=== PATIENT | female | born 1940 | race Caucasian/White ===

== ENCOUNTER → 2021-09-10 14:33 | Outpatient (CLI) | payer MEDICARE, SELFPAY ==
--- NOTE | ~2021-09-10 | XR_ITS ---
EXAMINATION: XR chest 2V DATE: 09/10/2021 15:01 INDICATION: Bronchitis. TECHNIQUE: Frontal and lateral views of the chest were obtained. COMPARISON: None. FINDINGS: There is mild atelectasis in the lower lung zones. No pleural effusion or pneumothorax. The heart size is normal. IMPRESSION: 1. Mild atelectasis in the lower lung zones. Reviewed, dictated and finalized at location A.
== END ==
PROVIDERS: PCP Family Medicine; Visit Provider Family Medicine
DX: J40 Bronchitis, not specified as acute or chronic (principal); J98.11 Atelectasis
CPT/HCPCS: 71046

== ENCOUNTER 2023-02-11 23:49 | Emergency (ER) | payer MEDICARE, SELFPAY ==
[2023-02-12 01:51] VITALS: BP 166/83; PULSE 77; RESP 15; TEMP 37.3; O2SAT 98
[2023-02-12] MEDS: SODIUM CHLORIDE 0.9% IV 1,000 ML 999 ML IV CONT (02:41)
[2023-02-12 03:00] VITALS: BP 145/78; PULSE 70; RESP 14; O2SAT 98
[2023-02-12 03:27] LABS: Anion Gap 9 mmol/L (8-16); Blood Urea Nitrogen 24 mg/dL (7-17); Calcium 8.9 mg/dL (8.4-10.2); Carbon Dioxide 24 mmol/L (22-30); Chloride 102 mmol/L (98-107); Estimated CRCL calculation 47 ml/min; Estimated Glomerular Filt Rate 60; Glucose 130 mg/dL (65-110); Potassium 4.2 mmol/L (3.4-5.0); Sodium 135 mmol/L (137-145)
[2023-02-12 03:30] VITALS: BP 133/66; PULSE 72; RESP 16; O2SAT 99
--- NOTE | 2023-02-12 03:32 | ED.NAVMDI ---
HPI - Nausea/Vomiting/Diarrhea General Chief complaint: Nausea/Vomiting/Diarrhea Stated complaint: nausea, diarrhea, low grade temp Time Seen by Provider: 02/12/23 01:39 History of Present Illness HPI Narrative: This is an 82-year-old female with recent history of urinary tract infection, who presents emergency department complaining of frequent stools. The patient states about 8 days ago, she was diagnosed with urinary tract infection. She was started on Bactrim. She took the medication for 3 days, though developed increased frequency stools. This is associated with mild abdominal cramping. She denies bleeding. She states she was seen by her primary care doctor on who recommended oral hydration and Imodium. She states a repeat urinalysis at that time was negative. Today she felt feverish, though did not have a measured fever at home. Related Data Allergies Allergy/AdvReac Type Severity Reaction Status Date / Time erythromycin base Allergy Hives Verified 02/12/23 02:03 levofloxacin [From Levaquin] Allergy Hives Verified 02/12/23 02:03 Mhytqnb-GJT-GmY Reductase Allergy Unknown Verified 02/12/23 02:03 Inhibitor Penicillins AdvReac Severe Anaphylaxis Verified 02/12/23 02:03 Review of Systems Review of Systems: CONSTITUTIONAL: Subjective fevers denies fever, chills, or sweats. CARDIOVASCULAR: Denies chest pain, palpitations, or edema. RESPIRATORY: Denies cough or dyspnea. GASTROINTESTINAL: Chronic abdominal pain, loose stool denies nausea, vomiting GENITOURINARY: Denies dysuria or hematuria. SKIN: Denies rash or itching. MUSCULOSKELETAL: Denies back pain, joint pain, or myalgia. NEUROLOGIC: Denies headache, numbness, dizziness, or weakness. PSYCHIATRIC: Denies anxiety or depression. PMFSH Past Medical History Medical History UTI (urinary tract infection) Surgical History Surgical History No significant past surgical history Social History Social History (Updated 02/12/23 @ 03:35 by Justin Arevalo MD) Smoking status: Never smoker Alcohol intake: current Drinks per week: 1 Substance use: never Exam Narrative: GENERAL: Well-developed, well-nourished, and in no acute distress. HEAD: Normocephalic, atraumatic. EYES: PERRLA and EOMI. CHEST: Clear to auscultation. No respiratory distress. No wheezes rales or rhonchi HEART: Regular rate and rhythm. No murmur heard. Normal peripheral pulses. ABDOMEN: Soft, nontender, nondistended, normal active bowel sounds. EXTREMITIES: Normal range of motion. No edema. SKIN: Warm, dry, no rash. NEURO: Alert and oriented x3. Moving all 4 limbs purposefully. PSYCH: Normal mood and affect. Course Course Emergency Course: 03:30 - Chemistries not concerning for kidney injury. Sodium slightly decreased at 135. I suspect the patient's symptoms are a side effect of antibiotic use. Will discharge with recommendation for oral hydration, fiber and primary care follow-up. Discussed return and emergency precautions including signs/symptoms of acute abdomen, ACS and respiratory distress. The patient voiced understanding and is comfortable with the plan. All questions answered to her satisfaction. Vital Signs Vital signs: Vital Signs Temperature 99.2 F 02/12/23 01:51 Pulse Rate 77 02/12/23 01:51 Respiratory Rate 15 02/12/23 01:51 Blood Pressure 166/83 H 02/12/23 01:51 Pulse Oximetry 98 02/12/23 01:51 Oxygen Delivery Room Air 02/12/23 01:51 Temperature 99.2 F 02/12/23 01:51 Pulse Rate 72 02/12/23 03:30 Respiratory Rate 16 02/12/23 03:30 Blood Pressure 133/66 02/12/23 03:30 Pulse Oximetry 99 02/12/23 03:30 Oxygen Delivery Room Air 02/12/23 01:51 MDM - Nausea/Vomiting/Diarrhea MDM Narrative Medical decision making narrative: Plan: Labs, IV fluids, reassess Differential Diagnosis Differen
== END 2023-02-12 04:03 | disposition home or self-care (01) ==
PROVIDERS: Emergency Provider Preventive Medicine Aerospace Medicine; PCP Family Medicine
DX: K52.1 Toxic gastroenteritis and colitis (principal); T36.8X5A Adverse effect of other systemic antibiotics, initial encounter
CPT/HCPCS: 36415; 80048; 96360; 99283; J7030

== ENCOUNTER 2024-06-19 23:33 | Emergency (ER) | payer MEDICARE, SELFPAY ==
--- NOTE | ~2024-06-19 | CT_ITS ---
CT ANGIOGRAM NECK AND HEAD History: Dizziness, diplopia. Technique: Axial noncontrast imaging of the brain was performed. Serial spiral axial images through t he head and neck were then obtained during arterial phase IV injection of 100 cc of Omnipaque 350. 3- D postprocessing and MIP images were then reconstructed on the remote workstation. Dose reduction du hnique was used on this scan by utilizing automated exposure control and iterative reconstruction du hnique. The dose-length product (DLP) was 1779.63 mGy-cm. CTA neck findings: Bilateral vertebral arteries are patent. Bilateral common carotid, internal carot id, and external carotid arteries are patent. No large vessel occlusion or stenosis. No aneurysm. The proximal right internal carotid artery demonstrates 0% stenosis relative to the normal distal artery lumen diameter. The proximal left internal carotid artery demonstrates 0% stenosis relative to the n ormal distal artery lumen diameter. CTA head findings: Distal vertebral arteries, basilar artery, and posterior cerebral arteries are pat ent. Distal internal carotid arteries, middle cerebral arteries, and anterior cerebral arteries are p atent. There are atherosclerotic calcifications extensive involving the cavernous portions of the dis yaniv internal carotid arteries, with areas of moderate to high-grade stenosis in the left cavernous po rtion. There are areas of mild stenosis in the right cavernous portion. No large vessel occlusion. Pr obable multifocal mild stenoses in the proximal middle cerebral arteries bilaterally. No aneurysm. Axial noncontrast imaging of the brain demonstrates no evidence for acute infarct, intraparenchymal h emorrhage, or mass lesion. Jose-white protrusion preserved. No mass effect or midline shift. Ventricl es and subarachnoid spaces are mildly dilated. Paranasal sinuses and mastoid air cells are clear. Grant varium intact. Impression: No large vessel occlusion. Areas of bilateral stenosis in the cavernous portions of the distal internal carotid arteries, left w orse than right, related to extensive atherosclerotic calcification. No other areas of high-grade stenosis. Reviewed, dictated and finalized at location M. ICAL THERAPY COORDINATOR Impression: No large vessel occlusion. Areas of bilateral stenosis in the cavernous portions of the distal internal ca rotid arteries, left worse than right, related to extensive atherosclerotic grant cification. No other areas of high-grade stenosis.
--- NOTE | ~2024-06-19 | XR_ITS ---
CHEST RADIOGRAPH, PA AND LATERAL CLINICAL HISTORY: worsening sob x 2 weeks . COMPARISON: 09/10/2021 TECHNIQUE: PA and lateral views of the chest. FINDINGS The cardiomediastinal silhouette is unremarkable. Hyperinflation is present. Elevation of the right hemidiaphragm with adjacent compressive atelectasis. The lungs are clear. Visualized osseous structures and soft tissues are unremarkable. IMPRESSION: Hyperinflation, without focal infiltrate or effusion. Reviewed, dictated and finalized at location A. BODY REPAIRMAN
--- NOTE | ~2024-06-19 | CT_ITS ---
Clinical Indication: Shortness of breath CT Scan of the Chest with Contrast: Technique: Contiguous sections were acquired throughout the chest after intravenous administration of 100 cc of Omnipaque 350. Dose reduction technique was used on this scan by utilizing automated expos ure control and iterative reconstruction technique. The dose-length product (DLP) was 390.34 mGy-cm. Findings: There is no evidence of any significant mediastinal, hilar or axillary lymphadenopathy. There is no f illing defect in the pulmonary arterial tree to suggest pulmonary embolus. There is no evidence of ao rtic dissection or aneurysm. There is no evidence of pleural or pericardial effusion. There are mild dependent atelectatic/hypoventilatory changes. There are areas of cystic or bullous ch jovani at the left lung base. Images through the upper abdomen reveal no abnormalities. 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 Cystic change or bullous change at the left lung base. Minimal dependent atelectatic change. Reviewed, dictated and finalized at [facility]. ER GRADER Impression: No evidence of pulmonary embolus, aortic dissection, or aortic aneurysm. Cystic change or bullous change at the left lung base. Minimal dependent atelec tatic change.
[2024-06-19 23:35] VITALS: BP 132/68; PULSE 84; RESP 16; TEMP 36.4; O2SAT 95
--- OUTSIDE RECORDS SUMMARY | 2024-06-19 23:36 | XMS_ITS | Clinical Summary ---
Author Organization [facility] Address [address] [place] [address] Care Team Providers Care Club Director Name Role Phone Tuan Morrison MD Primary Care Provider +1- [phone] Source Comments [facility],non-owned Affiliates and Associated Physician Practices is amultiple site organization consisting of ambulatory clinics and hospital sitesin [place], [place], [place] and [place]. This disclosure is being madepursuant to the Care Everywhere program and may not contain all information available regarding this patient. Last updated 18.[facility] Allergies Active Allergy Reactions Criticality Noted Date Comments Azithromycin Unknown Low 03/09/2022 [facility] Non-Aspirin Allergy Rash Medium 02/11/2010 Erythromycin Urticaria,Rash High 05/16/1967 Levofloxacin Dizziness,Unknown,Ot her,Swell ing Medium 01/05/2012 Omeprazole Palpitations,Unknown High 01/23/2016 Penicillins Anaphylaxis High 02/11/2010 Rosuvastatin Unknown,Other High 01/04/2017 Medications * Be aware that medications may not be up to date on this document. Alwaysverify current medications with the patient. Medication Sig Dispensed Refills Start Date End Date Status Synthroid 75 MCG tablet Take 1 (one) tablet by mouth once daily Active vitamin D3 (Cholecalciferol) 125 MCG (5000 UT) capsule Take 1 (one) capsule by mouth once daily Active Bacillus Coagulans-Inulin (Probiotic) 1-250 BILLION-MG CAPS 05/16/2014 Active Encounters Date Type Department Care Team Description 05/29/2024 2:00 PM LINE MAINTAINER SECTION Office Visit [facility] [address] [place] [address], [address] [address] Edinson Denise MD Primary osteoarthritis of left knee (Primary Dx) 04/17/2024 10:25 AM LINE MAINTAINER SECTION Ancillary Procedure [facility] - Radiology [address] [place] [address] Edinson Denise MD Left knee pain, unspecified chronicity 04/17/2024 10:10 AM LINE MAINTAINER SECTION Office Visit [facility] [address] [facility] [place] [address] Edinson Denise MD Left knee pain, unspecified chronicity (Primary Dx); Bilateral primary osteoarthritis of knee from Last 3 Months Social History Tobacco Use Types Packs/Day Years Used Date Smoking Tobacco: Never Smokeless Tobacco: Never Tobacco Cessation:Counseling Given: Not Answered PHQ-2 Answer Date Recorded Patient Health Questionnaire-2 Score 0 05/26/2024 Sex and Gender Information Value Date Recorded Sex Assigned at Female 05/01/2024 6:42 PM LINE MAINTAINER SECTION Gender Identity Female 05/01/2024 6:42 PM LINE MAINTAINER SECTION Sexual Orientation Bisexual 05/01/2024 6: 42 PM LINE MAINTAINER SECTION Last Filed Vital Signs Vital Sign Reading Time Taken Comments Blood Pressure - - Pulse - - Temperature - - Respiratory Rate - - Oxygen Saturation - - Inhaled Oxygen Concentration - - Weight 85.3 kg (188 lb) 04/17/2024 10:24 AM LINE MAINTAINER SECTION Height 170.2 cm (5' 7 ) 04/17/2024 10:24 AM LINE MAINTAINER SECTION Body Mass Index 29.44 04/17/2024 10:24 AM LINE MAINTAINER SECTION Plan of Treatment Upcoming Encounters Date Type Department Care Team (Latest Contact Info) Description 07/02/2024 10:15 AM LINE MAINTAINER SECTION Appointment [facility] [address] [place] [address] 08/02/2024 10:10 AM CDT Hospital Encounter [facility] - Perioperative Surgery [address] [place], [place] [id number] [place] [address] [place] [address] Surgery General 08/02/2024 10:10 AM CDT - 08/02/2024 12:28 PM CDT Surgery [facility] - Perioperative Surgery [address] [place] [address] [place] [address] [facility] [address] [place], [place] [id number] LEFT TOTAL KNEE ARTHROPLASTY Scheduled Procedures Name Priority Associated Diagnoses Date/Ti me ARTHROPLASTY TOTAL KNEE 07/15 10:10 AM CDT Health Maintenance Due Date Last Done Comments BONE DENSITY TESTING 1940 MEDICARE AWV ? 12 MONTHS 1940 DTAP/TDAP/TD VACCINES (1 - Tdap) 10/29/1958 PNEUMOCOCCAL VACCINE 50+ (1 of 1 - PCV) 10/29/1989 ZOSTER VACCINE (1 of 2) 10/29/1989 Respiratory Syncytial Virus (RSV) Vaccine Pt: or over 60 yrs (1 - 1-dose 75+ series) 10/29/2014 COVID-19 VACCINE ( - 2023-2 5 season) 2024 INFLUENZA VACCINE (#1) 2024 04/29/2022 DEPRESSION SCREENING Completed 05/29/2024 HEPATITIS B VACCINE Aged Out No longe r eligible based on patient's age to complete this topic HIB VACCINE Aged Out No longer eligi ble based on patient's age to complete this topic HPV VACCINE Aged Out No longer eligi ble based on patient's age to complete this topic MENINGOCOCCAL (Group B) VACCINE Aged Out No longer eligible based on patient's age to complete this topic MENINGOCOCCAL VACCINE Aged Out No xena kelsey eligible based on patient's age to complete this topic Procedures Procedure Name Priority Date/Time Associated Diagnosis Comments XR KNEE LEFT 3VW Routine 04/17/2024 10:2 2 AM LINE MAINTAINER SECTION Left knee pain, unspecified chronicity from Last 3 Months Results * XR Knee Left 3Vw (04/17/2024 10:22 AM LINE MAINTAINER SECTION) Narrative [facility] [place] [address] - 04/17/2024 10:22 AM LINE MAINTAINER SECTION Please see progress note in Epic for results. Edinson Denise MD DIAGNOSTIC IMAGING O RDERABLES [facility] [place] [address] from Last 3 Months Care Teams Club Director Relationship Specialty Start Date End Date Tuan Morrison MD [address] [facility], [address] PCP - General Family Medicine 04/17/24
--- OUTSIDE RECORDS SUMMARY | 2024-06-19 23:36 | XMS_ITS | Referral Summary ---
Author Organization [facility] Address [address] [place] [address] Care Team Providers Care Maintenance Operator Name Role Phone Tuan Morrison MD Primary Care Provider +1- [phone] Source Comments [facility] Affiliates and Associated Physician Practices is amultiple site organization consisting of ambulatory clinics and hospital sitesin [place], [place], [place] and [place]. This disclosure is being madepursuant to the Care Everywhere program and may not contain all information available regarding this patient. Last updated 18.[facility] Encounters Date Type Department Care Team Description 05/29/2024 2:00 PM PICK UP AND DELIVERY DRIVER Office Visit [facility] [address] [place] [phone] Edinson Denise MD Primary osteoarthritis of left knee (Primary Dx) 04/17/2024 10:25 AM PICK UP AND DELIVERY DRIVER Ancillary Procedure [facility] - Radiology [address] [place] [phone] Edinson Denise MD Left knee pain, unspecified chronicity 04/17/2024 10:10 AM PICK UP AND DELIVERY DRIVER Office Visit [facility] [address] [place] [phone] Edinson Denise MD Left knee pain, unspecified chronicity (Primary Dx); Bilateral primary osteoarthritis of knee from Last 3 Months Allergies Active Allergy Reactions Criticality Noted Date [...] Coagulans-Inulin (Probiotic) 1-250 BILLION-MG CAPS 05/16/2014 Active Social History Tobacco Use Types Packs/Day Years Used Date Smoking Tobacco: Never Smokeless Tobacco: Never Tobacco Cessation:Counseling Given: Not Answered PHQ-2 Answer Date Recorded Patient Health Questionnaire-2 Score 0 05/26/2024 Sex and Gender Information Value Date Recorded Sex Assigned at Female 05/01/2024 6:42 PM PICK UP AND DELIVERY DRIVER Gender Identity Female 05/01/2024 6:42 PM PICK UP AND DELIVERY DRIVER Sexual Orientation Bisexual 05/01/2024 6: 42 PM PICK UP AND DELIVERY DRIVER Last Filed Vital Signs Vital Sign Reading Time Taken Comments Blood Pressure - - Pulse - - Temperature - - Respiratory Rate - - Oxygen Saturation - - Inhaled Oxygen Concentration - - Weight 85.3 kg (188 lb) 04/17/2024 10:24 AM PICK UP AND DELIVERY DRIVER Height 170.2 cm (5' 7 ) 04/17/2024 10:24 AM PICK UP AND DELIVERY DRIVER Body Mass Index 29.44 04/17/2024 10:24 AM PICK UP AND DELIVERY DRIVER Plan of Treatment Upcoming Encounters Date Type Department Care Team (Latest Contact Info) Description 07/02/2024 10:15 AM PICK UP AND DELIVERY DRIVER Appointment [facility] [address] [place], [place] [id number] 08/02/2024 10:10 AM CDT Hospital Encounter [facility] - Perioperative Surgery [address] [place] [address] [place] [address] [place], [place] [id number] Surgery General 08/02/2024 10:10 AM CDT - 08/02/2024 12:28 PM CDT Surgery [facility] - Perioperative Surgery [address] [place] [address] [place] [address] [facility] [address] [place] [address] LEFT TOTAL KNEE ARTHROPLASTY Scheduled Procedures Name Priority Associated Diagnoses Date/Ti me ARTHROPLASTY TOTAL KNEE 07/15 10:10 AM CDT Procedures Procedure Name Priority Date/Time Associated Diagnosis Comments XR KNEE LEFT 3VW Routine 04/17/2024 10:2 2 AM PICK UP AND DELIVERY DRIVER Left knee pain, unspecified chronicity from Last 3 Months Results * XR Knee Left 3Vw (04/17/2024 10:22 AM PICK UP AND DELIVERY DRIVER) Narrative [facility] [address] - 04/17/2024 10:22 AM PICK UP AND DELIVERY DRIVER Please see progress note in Epic for results. Edinson Denise MD DIAGNOSTIC IMAGING O RDERABLES [facility] [address] from Last 3 Months Care Teams Maintenance Operator Relationship Specialty Start Date End Date Tuan Morrison MD [address] [facility], [address] PCP - General Family Medicine 04/17/24
--- OUTSIDE RECORDS SUMMARY | 2024-06-19 23:36 | XMS_ITS | Referral Summary ---
Author [place] [facility] [place] [address] [facility] [address] Address [address] [place] [address] Care Team Providers Care Leather Production Machine Operator Name Role Phone Tuan Morrison MD Primary Care Provider +1- [phone] Encounters Date Type Department Care Team Description 03/22/2024 11:45 AM ELECTRICIAN JOURNEYMAN WIREMAN Office Visit [facility] Oncology [facility] Floor [address] [place] [address] Ismael Tejeda MD Malignant neoplasm of left breast in female, estrogen receptor positive, unspecified site of breast (HCC) from Last 3 Months Allergies Active Allergy Reactions Criticality Noted Date Comments Azithromycin Other (See comments) Low 03/09/2022 Erythromycin Rash,Hives High 05/16/1967 Fluticasone Propionate Cough Medium 04/15/2019 Levofloxacin Muscle pain,Other (S ee comments) Medium 01/05/2012 Omeprazole Palpitations High 01/23/2016 Penicillins Anaphylaxis,Other (S ee comments) High 03/09/2022 Rosuvastatin Joint pain High 01/04/2017 Sinutab Rash Medium 02/11/2010 Medications famotidine (PEPCID) 20 mg tablet 1 tablet (20 mg total) 2 (two) times a day as needed for indigestion 3 Active Synthroid 75 mcg tablet Take 1 tablet (75 mcg total) by mouth manager ui before breakfast Active vitamin D3-vitamin K2 25 mcg (1,000 unit)-90 mcg tablet,disinte grating Take by mouth Active magnesium citrate 100 mg tablet Take 100 mg by mouth daily after lunch Active vit D3-vit K-wqmbaidpu-wa ps [phone] zqei-srx-tl-mg tablet Take by mouth Active cholecalcifero l (VITAMIN D-3) 5,000 unit capsuleIndicat ions:Vitamin D Deficiency Take 1 capsule (5,000 Units total) by mouth daily after lunch Active omega-3 fatty acids-fish oil 300-1,000 mg capsule Active turmeric root extract 500 mg capsule 9 Active L. acidophilus-di g enz cmb 5 5-250 mg capsule Take 2 capsules by mouth nightly Active UNABLE TO FIND Take by mouth as needed Med Name: Frankinscense Active docusate sodium (COLACE) 100 mg capsuleIndicat ions:constipat ion Take 1 capsule (100 mg total) by mouth 2 (two) times a day with a glass of water 60 capsule 4 Active Additional Information Patient not taking.Reported on 09/08/2023 oxyCODONE-acet aminophen (PERCOCET) 5-325 mg per tabletIndicati ons:Pain Take 1-2 tablets by mouth every 4 (four) hours as needed for pain For severe pain, take in place of Tylenol. 20 tablet Active Additional Information Patient not taking.Reported on 09/08/2023 Active Problems Problem Noted Date Diagnosed Date Malignant neoplasm of right female breast 2023 Breast infection 07/25/2023 Assessment & Plan (07/25/2023 11:25 AM CDT): - Left breast with persistently draining wound, likely sinus tract. No erythema, warmth, swelling, fevers, chills, or other concerning symptoms. She will have mastectomy at the end of this month for definitive management of breast cancer. No plans for reconstruction. - Discussed with patient today that given she is clinically doing well there is no indication to start antibiotics at this time. Recommend she proceed with mastectomy as this will be the best way to cure infection. Will discuss with surgeon that if there is no concern for infection during surgery she can received normal aron-op antibiotics and will not require additional antibiotics after surgery. If there is concern for infection intraoperatively (which I feel is more likely) I would recommend she be given anti-pseudomonal coverage aron-op with a dose of cefepime and cultures should be taken. She should then be given levofloxacin 750 mg PO daily x 5 days and I will follow up on cultures and with patient to see how she is doing clinically post-op. We can also consider giving her oral vancomycin for C diff prophylaxis. Malignant neoplasm of left b reast in female, estrogen receptor positive 06/09/2023 Cancer Staging:Pathologic stage from 02/28/2023:Stage IA(pT2, pN0(sn), cM0, G2, ER+, WV+, HER2-) - Unsigned Primary osteoarthritis of left knee 10/27/2022 Immunizations Name Administration Dates Next Due Influenza, Quadrivalent, Hig h Dose, Preservative Free, Intrr 04/29/2022 Influenza, Unspecified 04/29/2022 Pneumococcal Conjugate PCV 13 01/19/2016 Social History Tobacco Use Types Packs/Day Years Used Date Smoking Tobacco: Never Passive Smoke Exposure: Past Smokeless Tobacco: Never Tobacco Cessation:Counseling Given: Not Answered AUDIT-C Answer Date Recorded Q1: How often [...] on file Legal Sex Female 1:53 AM ELECTRICIAN JOURNEYMAN WIREMAN Gender Identity Not on file Sexual Orientation Not on file Last Filed Vital Signs Vital Sign Reading Time Taken Comments Blood Pressure 145/80 03/22/2024 11:47 AM ELECTRICIAN JOURNEYMAN WIREMAN Pulse 65 03/22/2024 11:47 AM ELECTRICIAN JOURNEYMAN WIREMAN Temperature 36.1 ??C (97 ??F) 03/22/2024 11:47 AM ELECTRICIAN JOURNEYMAN WIREMAN Respiratory Rate 18 12/15/2023 11:46 AM CDT Oxygen Saturation 96% 03/22/2024 11:47 AM ELECTRICIAN JOURNEYMAN WIREMAN Inhaled Oxygen Concentration - - Weight 85.3 kg (188 lb) 03/22/2024 11:47 AM ELECTRICIAN JOURNEYMAN WIREMAN Height 165.1 cm (5' 5 ) 03/22/2024 11:47 AM ELECTRICIAN JOURNEYMAN WIREMAN Body Mass Index 31.28 03/22/2024 11:47 AM ELECTRICIAN JOURNEYMAN WIREMAN Plan of Treatment Not on file Insurance MEDICARE [facility] MEDICARE [facility] MEDICARE [facility] Advance Directives For more information, please contact: [phone] Documents on File Type Date Recorded Patient Industrial Design Engineer Expl anation ADVANCE DIRECTIVE 08/08/2023 2:02 PM Power of Coat Baster-Medical Care Teams Leather Production Machine Operator Relationship Specialty Start Date End Date Tuan Morrison MD [address] [place] [address] PCP - General Family Medicine 09/11/20
--- OUTSIDE RECORDS SUMMARY | 2024-06-19 23:36 | XMS_ITS | Encounter Summary ---
Author Organization [facility] Address [address] Kramer: Epic Prelude ADT MERARY CALIX [address] Care Team Providers Care Care Assistant Name Role Phone Tuan Morrison MD Primary Care Provider +1- [phone] Encounter Details Date Type Department Care Team (Late st Contact Info) Description 12/19/1989 Outpatient Historical Kofi Gallardo MD [address] [facility] [address] [place] [address] Social History Tobacco Use Types Packs/Day Years Used Date Smoking Tobacco: Never Assessed Comments Unknown Sex and Gender Information Value Date Recorded Sex Assigned at Not on file Legal Sex Female 2:58 AM DIRECTOR OF MOBILE MARKETING Gender Identity Not on file Sexual Orientation Not on file documented as of this encounter Plan of Treatment Not on file documented as of this encounter Visit Diagnoses Not on filedocumented in this encounter Additional Health Concerns Infection Onset Date Last Indicated Resolved Time R/O COVID-19 02/04/2023 02/04/2023 02/04/2023 2:27 AM CDT documented as of this encounter Care Teams Care Assistant Relationship Specialty Start Date End Date Tuan Morrison MD [address] [place] [address] PCP - General 03/25/15 documented as of this encounter
--- OUTSIDE RECORDS SUMMARY | 2024-06-19 23:36 | XMS_ITS | Patient Health Summary ---
Author Organization [facility] Address [address] [facility] [place] [address] Care Team Providers Care Arc Welder Apprentice Name Role Phone Tuan Morrison MD Primary Care Provider +1- [phone] Note from [facility],non-owned Affiliates and Associated Physician Practices is amultiple site organization consisting of ambulatory clinics and hospital sitesin [place], [place]. This disclosure is being madepursuant to the Care Everywhere program and may not contain all information available regarding this patient. Last updated 18.[facility] Allergies * Azithromycin(Unknown) -Low Criticality * [facility] Non-Aspirin Allergy(Rash) -Medium Criticality * Erythromycin(Urticaria,Rash) -High Criticality * Levofloxacin(Dizziness,Unknown,Other,Swelling) -Medium Criticality * Omeprazole(Palpitations,Unknown) -High Criticality * Penicillins(Anaphylaxis) -High Criticality * Rosuvastatin(Unknown,Other) -High Criticality Medications * Be aware that medications may not be up to date on this document. Alwaysverify current medications with the patient. * Synthroid 75 MCG tablet Take 1 (one) tablet by mouth once daily * vitamin D3 (Cholecalciferol) 125 MCG (5000 UT) capsule Take 1 (one) capsule by mouth once daily * Bacillus Coagulans-Inulin (Probiotic) 1-250 BILLION-MG CAPS(Started 05/16/2014) Social History Tobacco Use Types Packs/Day Years Used Date Smoking Tobacco: Never Smokeless Tobacco: Never Tobacco Cessation:Counseling Given: Not Answered PHQ-2 Answer Date Recorded Patient Health Questionnaire-2 Score 0 05/26/2024 Sex and Gender Information Value Date Recorded Sex Assigned at Female 05/01/2024 6:42 PM DIRECTOR EMBALMER Gender Identity Female 05/01/2024 6:42 PM DIRECTOR EMBALMER Sexual Orientation Bisexual 05/01/2024 6: 42 PM DIRECTOR EMBALMER Last Filed Vital Signs Vital Sign Reading Time Taken Comments Blood Pressure - - Pulse - - Temperature - - Respiratory Rate - - Oxygen Saturation - - Inhaled Oxygen Concentration - - Weight 85.3 kg (188 lb) 04/17/2024 10:24 AM DIRECTOR EMBALMER Height 170.2 cm (5' 7 ) 04/17/2024 10:24 AM DIRECTOR EMBALMER Body Mass Index 29.44 04/17/2024 10:24 AM DIRECTOR EMBALMER Procedures * XR KNEE LEFT 3VW(Performed 04/17/2024) Performed for Left knee pain, unspecified chronicity * DERMATOPATHOLOGY(Performed 11/01/2023) * DERMATOPATHOLOGY(Performed 12/30/2015) * DERMATOPATHOLOGY(Performed 05/20/2015) Results * XR Knee Left 3Vw (04/17/2024 10:22 AM DIRECTOR EMBALMER) Narrative [facility] [place] [address] - 04/17/2024 10:22 AM DIRECTOR EMBALMER Please see progress note in Epic for results. Edinson Denise MD DIAGNOSTIC IMAGING O RDERABLES [facility] [address] * DERMATOPATHOLOGY (11/01/2023 3:33 AM CDT) Only the most recent of3 resultswithin the time period is included. Case Report Dermatopathology Report ? Case: [id number] ? Authorizing Provider: ??Guru Rabago MD ?Collected: ? 11/01/2023 03:33 AM ? Ordering Location: ? [facility] - ??Received: ?11/02/2023 12:35 PM ? DermPath Lab ? Pathologist: ? Angela Bernal MD ? Specimen: ?Skin, right posterior thigh ? 10:55 AM [facility] Final Diagnosis Specimen A. 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 The specimen consists of a shave biopsy measuring 5x3x1 mm. Jar 0. 10:55 AM [facility] Microscopic Description Specimen A. SKIN, right posterior thigh: This is a compound nevus. There is melanin pigment in the stratum corneum. There is a lentiginous proliferation of melanocytes between nevus nests of cells along the dermal epidermal junction. There is underlying fibroplasia of the papillary dermis. The intradermal component is bland in appearance and matures with depth. (Compound Lisandro's Nevus) 10:55 AM [facility] Disclaimer An external and internal positive and negative controls are appropriate for the histochemical, immunohistochemical and immunofluorescence stain(s) in this case (if any), except where stated explicitly. The performance characteristics of the stain(s) cited in this report were developed and its performance characteristic determined by the Dermatopathology Laboratory at [facility], directed by Dr. Elaina Curtis. These tests need not be, and therefore are not, approved by the [place] Food and Drug Administration. The tests are used for clinical purposes. Billing Codes Specimen Charges Stain Charges 53357 1 4 10:55 AM CDT DERMATOPATHOLOGY LABORATORY Embedded Images 4 10:55 AM CDT DERMATOPATHOLOGY LABORATORY Pathology/Cytolo gy TISSUE SPECIMEN FROM SKIN / Unknown 11/01/2023 3:33 AM CDT 11/02/2023 12:35 PM CDT Guru Rabago MD LAB - PATHOLOGY/CYTO LOGY ORDERABLES DERMATOPATHOLOGY LABORATORY [facility] - Department of Dermatology [facility] [address] [facility]rd [address] [phone] Care Teams Arc Welder Apprentice Relationship Specialty Start Date End Date Tuan Morrison MD [address] [facility] [address] PCP - General Family Medicine 04/17/24
--- OUTSIDE RECORDS SUMMARY | 2024-06-19 23:37 | XMS_ITS | Encounter Summary ---
Author Organization [facility] Address [address] Kramer: Epic Prelude ADT MERARY CLAIX [address] Care Team Providers Care Director Of Manufacturing Name Role Phone Tuan Morrison MD Primary Care Provider +1- [phone] Encounter Details Date Type Department Care Team (Late st Contact Info) Description 12/28/1991 Outpatient Historical Kofi Gallardo MD [address] 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
--- OUTSIDE RECORDS SUMMARY | 2024-06-19 23:37 | XMS_ITS | Encounter Summary ---
Author Organization [employer] Address [address] [place] [address] Care Team Providers Care Propellant Charge Loader Name Role Phone Tuan Morrison MD Primary Care Provider +1- [phone] Encounter Details Date Type Department Care Team (Late st Contact Info) Description 08/21/2003 Outpatient Historical [facility] Support Serv. ([facility]) [address] 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
--- OUTSIDE RECORDS SUMMARY | 2024-06-19 23:37 | XMS_ITS | Encounter Summary ---
Author Organization [facility] Address [address] [place] [address] Care Team Providers Care Fingernail Sculpturer Name Role Phone Unavailable Primary Care Provider Unavailabl e Reason for Visit * Diagnostic Imaging (Routine) - Closed Specialty Diagnoses / Procedures Referred By Contac t Referred To Contact Procedures Breast Imaging [place] [address] [place] [address] Phone: tel: fax: Referral ID Status Reason Start Date Expiration Date Visits Re quested Visits Authorized [id number] Closed 05/12/2023 06/10/2024 1 1 Encounter Details Date Type Department Care Team (Late st Contact Info) Description 10/02/2019 Hospital Encounter [facility] [address] [place] [id number] Social History Tobacco Use Types Packs/Day Years [...] on file Legal Sex Female 1:53 AM INTERIOR BLOCK WIRER Gender Identity Not on file Sexual Orientation [...] CDT) Impressions [facility] - 05/12/2023 1:55 PM INTERIOR BLOCK WIRER These images are for Reference purposes only and have not been reviewed by [facility] Radiology. ??There will be no report generated by a [facility] Radiologist. Narrative [facility] - 05/12/2023 1:55 PM INTERIOR BLOCK WIRER EXAMINATION: ??Images For Reference Purposes Only us Mena Mansfield [...]
--- OUTSIDE RECORDS SUMMARY | 2024-06-19 23:37 | XMS_ITS | Encounter Summary ---
Author Organization [facility] Address [address] Kramer: Epic Prelude ADT MERARY CALIX [address] Care Team Providers Care Gaming Manager Name Role Phone Tuan Morrison MD Primary Care Provider +1- [phone] Encounter Details Date Type Department Care Team (Late st Contact Info) Description 01/06/1993 Outpatient Historical Kofi Gallardo MD [address] 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
--- OUTSIDE RECORDS SUMMARY | 2024-06-19 23:37 | XMS_ITS | CONTINUITY OF CARE DOCUMENT ---
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 Tommy Bowman MD Family History of CVA or Stroke: active ? Tommy Bowman MD CAD active Tommy Bowman MD Dyslipidemia active Tommy Bowman MD Snoring completed - Tommy Bowman MD Abnormal EKG active Tommy Bowman MD SAQIB - moderate active Tommy Bowman MD Prediabetes active Tommy Bowman MD CKD active Tommy Bowman MD Hypothyroidism active Tommy Bowman MD Obesity active Tommy Bowman MD Elevated C-reative protein active Tommy hendrix MD Heterozygous MTHFR mutation active Tommy Bowman MD Abnormal laboratory test active Tommy jim MD ENCOUNTERS Date Type Provider Location Encounter Diag nosis - In-person encounter Office Visit Tommy [facility] - In-person encounter Office Visit Tommy [facility] Abnormal laboratory test - In-person encounter Office Visit Tommy [facility] - In-person encounter Office Visit Tommy Bowman MD [facility] HypothyroidismObesityElevated C-reative proteinHeterozygous MTHFR mutation - In-person encounter Office Visit Tommy [facility] - In-person encounter Office Visit Tommy Bowman MD [facility] [place] [facility] SnoringOSA - moderatePrediabetesCKD - In-person encounter Office Visit Tommy [facility] Family History Coronary Heart Disease female < 65:Family History of CVA or Stroke:CADDyslipidemiaAbnormal EKG VITAL SIGNS Date Observation Value Provider Body Mass Index (Ratio) 31.01 kg/m2 Tristan Bowman MD oxygen saturation, oximetry 98 % [facility] respiratory rate E&M 73 /min Chait y Zac blood pressure, diastolic 80 mm[Hg] Ch astity Zac blood pressure, systolic 126 mm[Hg] Lety stity Zac pulse rate 73 /[facility]av[facility] [in_i] [facility] Body Mass Index (Ratio) 30.54 kg/m2 Tristan Bowman MD blood pressure, diastolic 82 mm[Hg] [facility] systolic 138 mm[Hg] Higinio tate Webb oxygen saturation, oximetry 93 % [facility] E&M 16 /min Hydes Webb pulse rate 68 /min [facility] weight E&M 195 [lb_av] [facility] height E&M 67 [in_i] [facility] Body Mass Index (Ratio) 30.38 kg/m2 Tristan Bowman MD blood pressure, diastolic 72 mm[Hg] Al lison [facility] blood pressure, systolic 124 mm[Hg] All pauline [facility] oxygen saturation, oximetry 97 % [facility] respiratory rate E&M 16 /min [facility] pulse rate 72 /min [facility] weight E&M 194 [lb_av] [facility] height E&M 67 [in_i] [facility] Body Mass Index (Ratio) 31.32 kg/m2 Tristan Bowman MD blood pressure, diastolic 72 mm[Hg] Al lison [facility] blood pressure, systolic 116 mm[Hg] All [facility] oxygen saturation, oximetry 95 % [facility] respiratory rate E&M 15 /min [facility] pulse rate 72 /min [facility] blood pressure, resting No [facility] weight E&M 200 [lb_av] [facility] height E&M 67 [in_i] [facility] Body Mass Index (Ratio) 31.01 kg/m2 Tristan Bowman MD blood pressure, diastolic 64 mm[Hg] Al lison [facility] blood pressure, systolic 118 mm[Hg] [facility], oximetry 93 % [facility] respiratory rate E&M 15 /min [facility] pulse rate 76 /min [facility] weight E&M 198 [lb_av] [facility] height E&M 67 [in_i] [facility] blood pressure, diastolic 76 mm[Hg] Al lison [facility] blood pressure, systolic 124 mm[Hg] All pauline [facility] pulse rate 79 /min [facility] oxygen saturation, oximetry 97 % Pilar Henao respiratory rate E&M 15 /min Pilar Juliano Body Mass Index (Ratio) 32.45 kg/m2 Luis Henao weight E&M 195 [lb_av] Pilar Henao blood pressure, diastolic, left arm 88 mm [Hg] Kimberli Rueda blood pressure, systolic, left arm 118 mm [Hg] Kimberli Rueda blood pressure, diastolic, right arm 76 m m[Hg] Kimberli Rueda blood pressure, systolic, right arm 108 m m[Hg] Kimberli Rueda blood pressure, diastolic 76 mm[Hg] Karl Rueda blood pressure, systolic 108 mm[Hg] Eric rodriguez Rueda pulse rate 70 /min Kimberli Rueda oxygen saturation, oximetry 90 % Kimberli Rueda respiratory rate E&M 18 /min Kimberli Rueda Body Mass Index (Ratio) 32.75 kg/m2 Jackie breen Rueda weight E&M 196.8 [lb_av] Kimberli Rueda height E&M 65 [in_i] Kimberli Rueda ALLERGIES Allergy Name Onset Date Reaction Criticality Status CRESTOR 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 Recent news indicated prolonged use of proton pump inhibitors could cause heart trouble/complications. She also reports having leg cramps from it. High Criticality active RESULTS Date Observation Value Provider Reference Range Interpretation Location 08/15 vitamin D 25-hydroxy, serum 42.7 ng/mL [facility] >29.9 08/15 creatinine, random, urine 149.8 mg/dL [facility] 20.0-300.0 08/15 microalbumin/creatinine ratio, urine 10.0 ug/mg [facility] <7.5 High 08/15 microalbumin/total urine volume 15.0 mg/L [facility] 08/15 hemoglobin A1C, blood, as % of total hemoglobin 6.3 % [facility] <5.7 High 08/15 thyroid stimulating hormone, serum 2.060 u[IU]/m L [facility] 0.400-4.500 08/15 insulin, serum 5.2 u[IU]/m L [facility] 1.0-24.0 08/15 homocysteine, plasma, quantitative 12.9 umol/L [facility] <15.0 08/15 thyroxine, serum, free 1.3 ng/dL [facility] 0.7-1.8 08/15 triiodothyronine, free, serum 2.3 pg/mL [facility] 2.0-4.4 08/15 cystatin c 1.33 mg/L [facility] 0.61-0.95 High 08/15 C-reactive protein, by highly sensitive test 3.8 mg/L [facility] <1.0 High 08/15 eGFR if 60 mL/min/ {1.73_m 2} [facility] >60 Low 08/15 eGFR if not 52 mL/min/ {1.73_m 2} [facility] >60 Low 08/15 bilirubin, serum, total 0.3 mg/dL [facility] <1.3 08/15 aspartate aminotransferase (SGOT), serum 21 1/L [facility] <41 08/15 alanine aminotransferase (SGPT), serum 12 1/L [facility] <46 08/15 globulin, serum 2.0 [facility] 1.8-3.8 08/15 protein, total, serum 6.2 g/dL [facility] 6.1-8.0 08/15 albumin, serum 4.2 g/dL [facility] 3.5-5.5 08/15 creatinine, serum 1.03 mg/dL [facility] 0.55-1.00 High 08/15 urea nitrogen, blood 25 mg/dL [facility] 8-23 High 08/15 carbon dioxide, serum, total 25 mmol/L [facility] 21-33 08/15 chloride, serum 100 mmol/L [facility] 95-108 08/15 potassium, serum 4.2 mmol/L [facility] 3.5-5.1 08/15 sodium, serum 140 mmol/L [facility] 487-128 4411/0 4/02 calcium, serum 9.2 mg/dL [facility] 8.5-10.5 08/15 blood glucose 98 mg/dL [facility] 65-99 01/27 number of large High Density Lipoprotein particles 14.5 umol/L [facility] >=4.8 01/27 Large VLDL Particle 1.1 nmol/L [facility] <=2.7 01/27 LDL Size 22.1 nm [facility] >20.5 01/27 Small Low Density Lipoprotein Particle 263 nmol/L [facility] <=527 01/27 cholesterol, serum 286 mg/dL [facility] 100-199 High 01/27 triglyceride, serum, fasting 108 mg/dL [facility] 0-149 01/27 HDL cholesterol, serum 80 mg/dL [facility] >39 01/27 lipoprotein, beta, serum, point, quantitative, calculated 184 mg/dL [facility] 0-99 High 01/27 LDL particle concentration (lipoprotein panel), risk categories correspond to NCEP categories for LDL cholesterol (on a percentile equivalent basis) 1754 nmol/L [facility] <1000 High 01/24 vitamin D 25-hydroxy, serum 42.4 ng/mL [facility] 30.0-80.0 01/24 hemoglobin A1C, blood, as % of total hemoglobin TNP % [facility] <5.7 01/24 microalbumin/creatinine ratio, urine 2.8 ug/mg [facility] <7.5 01/24 microalbumin/total urine volume 5.3 mg/L [facility] 01/24 creatinine, random, urine 192.6 mg/dL [facility] 20.0-300.0 01/24 thyroid stimulating hormone, serum 2.250 u[IU]/m L [facility] 0.400-4.500 01/24 insulin, serum 6.1 u[IU]/m L [facility] 1.0-24.0 01/24 homocysteine, plasma, quantitative 12.6 umol/L [facility] <15.0 01/24 thyroxine, serum, free 1.4 ng/dL [facility] 0.7-1.8 01/24 triiodothyronine, free, serum 2.4 pg/mL [facility] 2.0-4.4 01/24 ferritin, serum 116 ng/mL [facility] 18-300 01/24 C-reactive protein, by highly sensitive test 2.4 mg/L [facility] <1.0 High 01/24 eGFR if 49 mL/min/ {1.73_m 2} [facility] >60 Low 01/24 eGFR if not 42 mL/min/ {1.73_m 2} [facility] >60 Low 01/24 bilirubin, serum, total 0.4 mg/dL [facility] <1.3 01/24 aspartate aminotransferase (SGOT), serum 20 1/L [facility] <41 01/24 alanine aminotransferase (SGPT), serum 11 1/L [facility] <46 01/24 globulin, serum 2.2 [facility] 1.8-3.8 01/24 protein, total, serum 6.6 g/dL [facility] 6.1-8.0 01/24 albumin, serum 4.4 g/dL [facility] 3.5-5.5 01/24 creatinine, serum 1.22 mg/dL [facility] 0.55-1.00 High 01/24 urea nitrogen, blood 30 mg/dL [facility] 8-23 High 01/24 carbon dioxide, serum, total 24 mmol/L [facility] 21-33 01/24 chloride, serum 102 mmol/L [facility] 95-108 01/24 potassium, serum 4.4 mmol/L [facility] 3.5-5.1 01/24 sodium, serum 141 mmol/L [facility] 655-143 7536/0 9/11 calcium, serum 9.1 mg/dL [facility] 8.5-10.5 01/24 blood glucose 102 mg/dL [facility] 65-99 High 06/28 microalbumin/creatinine ratio, urine 6.6 ug/mg [facility] <7.5 06/28 microalbumin/total urine volume 20.0 mg/L [facility] 06/28 creatinine, random, urine 304.2 mg/dL [facility] 20.0-300.0 High 06/28 vitamin D 25-hydroxy, serum 52.8 ng/mL [facility] 30.0-80.0 07/01 number of large High Density Lipoprotein particles 16.7 umol/L [facility] >=4.8 07/01 Large VLDL Particle <0.8 nmol/L [facility] <=2.7 07/01 LDL Size 21.7 nm [facility] >20.5 07/01 Small Low Density Lipoprotein Particle <90 nmol/L [facility] <=527 07/01 cholesterol, serum 289 mg/dL [facility] 100-199 High 07/01 triglyceride, serum, fasting 101 mg/dL [facility] 0-149 07/01 HDL cholesterol, serum 94 mg/dL [facility] >39 07/01 lipoprotein, beta, serum, point, quantitative, calculated 175 mg/dL [facility] 0-99 High 07/01 LDL particle concentration (lipoprotein panel), risk categories correspond to NCEP categories for LDL cholesterol (on a percentile equivalent basis) 1827 nmol/L [facility] <1000 High 06/28 hemoglobin A1C, blood, as % of total hemoglobin 5.8 % [facility] <5.7 High 06/28 C-reactive protein, by highly sensitive test 4.1 mg/L [facility] <1.0 High 06/28 thyroid stimulating hormone, serum 2.260 u[IU]/m L [facility] 0.400-4.500 06/28 insulin, serum 8.5 u[IU]/m L [facility] 1.0-24.0 06/28 homocysteine, plasma, quantitative 12.6 umol/L [facility] <15.0 06/28 thyroxine, serum, free 1.4 ng/dL [facility] 0.7-1.8 06/28 triiodothyronine, free, serum 2.3 pg/mL [facility] 2.0-4.4 06/28 ferritin, serum 118 ng/mL [facility] 18-300 06/28 eGFR if 61 mL/min/ {1.73_m 2} [facility] >60 06/28 eGFR if not 53 mL/min/ {1.73_m 2} [facility] >60 Low 06/28 bilirubin, serum, total 0.5 mg/dL [facility] <1.3 06/28 aspartate aminotransferase (SGOT), serum 24 1/L [facility] <41 06/28 alanine aminotransferase (SGPT), serum 16 1/L [facility] <46 06/28 globulin, serum 2.3 [facility] 1.8-3.8 06/28 protein, total, serum 6.6 g/dL [facility] 6.1-8.0 06/28 albumin, serum 4.3 g/dL [facility] 3.5-5.5 06/28 creatinine, serum 1.02 mg/dL [facility] 0.55-1.00 High 06/28 urea nitrogen, blood 22 mg/dL [facility] 8-23 06/28 carbon dioxide, serum, total 25 mmol/L [facility] 21-33 06/28 chloride, serum 102 mmol/L [facility] 95-108 06/28 potassium, serum 4.0 mmol/L [facility] 3.5-5.1 06/28 sodium, serum 143 mmol/L [facility] 066-574 3733/0 2/13 calcium, serum 9.5 mg/dL [facility] 8.5-10.5 06/28 blood glucose 114 mg/dL [facility] 65-99 High 12/21 microalbumin/creatinine ratio, urine 3.4 ug/mg [facility] <7.5 12/21 microalbumin/total urine volume 4.0 mg/L [facility] 12/21 creatinine, random, urine 118.1 mg/dL [facility] 20.0-300.0 12/21 vitamin D 25-hydroxy, serum 48.4 ng/mL [facility] 30.0-80.0 12/23 number of large High Density Lipoprotein particles 15.8 umol/L [facility] >=4.8 12/23 Large VLDL Particle <0.8 nmol/L [facility] <=2.7 12/23 LDL Size 21.9 nm [facility] >20.5 12/23 Small Low Density Lipoprotein Particle <90 nmol/L [facility] <=527 12/23 cholesterol, serum 327 mg/dL [facility] 100-199 High 12/23 triglyceride, serum, fasting 103 mg/dL [facility] 0-149 12/23 HDL cholesterol, serum 91 mg/dL [facility] >39 12/23 lipoprotein, beta, serum, point, quantitative, calculated 215 mg/dL [facility] 0-99 High 12/23 LDL particle concentration (lipoprotein panel), risk categories correspond to NCEP categories for LDL cholesterol (on a percentile equivalent basis) 2353 nmol/L [facility] <1000 High 12/21 C-reactive protein, by highly sensitive test 4.4 mg/L [facility] <1.0 High 12/21 thyroid stimulating hormone, serum 2.830 u[IU]/m L [facility] 0.400-4.500 12/21 insulin, serum 8.4 u[IU]/m L [facility] 1.0-24.0 12/21 homocysteine, plasma, quantitative 16.5 umol/L [facility] <15.0 High 12/21 thyroxine, serum, free 1.4 ng/dL [facility] 0.7-1.8 12/21 triiodothyronine, free, serum 2.3 pg/mL [facility] 2.0-4.4 12/21 eGFR if 64 mL/min/ {1.73_m 2} [facility] >60 12/21 eGFR if not 56 mL/min/ {1.73_m 2} [facility] >60 Low 12/21 bilirubin, serum, total 0.5 mg/dL [facility] <1.3 12/21 aspartate aminotransferase (SGOT), serum 25 1/L [facility] <41 12/21 alanine aminotransferase (SGPT), serum 17 1/L [facility] <46 12/21 globulin, serum 2.2 [facility] 1.8-3.8 12/21 protein, total, serum 6.7 g/dL [facility] 6.1-8.0 12/21 albumin, serum 4.5 g/dL [facility] 3.5-5.5 12/21 creatinine, serum 0.98 mg/dL [facility] 0.55-1.00 12/21 urea nitrogen, blood 22 mg/dL [facility] 8-23 12/21 carbon dioxide, serum, total 26 mmol/L [facility] 21-33 12/21 chloride, serum 98 mmol/L [facility] 95-108 12/21 potassium, serum 4.2 mmol/L [facility] 3.5-5.1 12/21 sodium, serum 139 mmol/L [facility] 700-416 4390/0 8/08 calcium, serum 9.5 mg/dL [facility] 8.5-10.5 12/21 blood glucose 113 mg/dL [facility] 65-99 High 12/21 methylenetetrahydrofolate reductase mutation, DNA testing by PCR, whole blood 677CC, 1298AC [facility] 12/21 hemoglobin A1C, blood, as % of total hemoglobin 6.4 % [facility] <5.7 High HISTORY OF MEDICATION USE Medication Status Instructions Dates Provider Indications Com ments ZETIA 10 MG ORAL TABLET active ONE TAB. DAILY 6 Tommy Bowman MD CURCUMIN 95 CAPSULE active one cap daily 6 Holly Frank PRAVASTATIN SODIUM 20 MG ORAL TABLET completed One tablet daily 2 - 7 Pilar Henao BERGAMOT OIL OIL completed - 2 Tmomy Bowman MD METFORMIN HCL ER 500 MG ORAL TABLET EXTENDED RELEASE 24 HOUR completed one tab po daily 7 - 7 Pilar Henao VITAMIN D3 5000 UNIT ORAL CAPSULE active take one cap po once daily Pilar Henao OMEGA 3 CAPSULE active take one cap po once daily Pilar Henao ASPIRIN ADULT LOW DOSE 81 MG ORAL TABLET DELAYED RELEASE completed take one tab po once daily - 9 Apolinar Webb GRAPE SEED EXTRACT CAPSULE active take one tab po once daily Pilar Henao CRESTOR 10 MG ORAL TABLET completed ONE TAB. DAILY 9 - 7 Pilar Henao CHRISTOFER/MAG CITRATE 240 MG ORAL TABS (CALCIUM-MAGNESI UM) completed daily 9 - 7 Pilar Henao SYNTHROID 75 MCG ORAL TABLET active ONE TAB. DAILY 9 Tommy Bowman MD PROBIOTIC 15 BILLION LIVE ORGANISIMS active Daily 9 Kimberli Rueda SOCIAL HISTORY Date Observation Value Provider social history reviewed E&M revi ewed - no changes required Tommy Bowman MD social history E&M S moking History: Laila francisco has never smoked. Tommy Bowman MD alcohol use, average drinks per day <1 Chastity Zac alcohol use yes Letystmarietta Frank smoking status Never smoker Tommy gutiérrez MD alcohol use, average drinks per day <1 Hydes Webb alcohol use yes Hydes Webb smoking status Never smoker Apolinar Pineda m social history reviewed E&M revi ewed - no changes required Tommy Bowman MD alcohol use, average drinks per day <1 Tommy Bowman MD alcohol use yes Tommy Bowman MD smoking status Never smoker Tommy gutiérrez MD social history E&M Smoking Histo ry: P francisco has never smoked. Tommy Bowman MD social history reviewed E&M revi ewed - no changes required Tommy Bowman MD alcohol use, average drinks per day <1 Pilar Henao alcohol use yes Pilar Henao smoking status Never smoker Pilar colorado smoking status Never smoker Tommy gutiérrez MD social history reviewed E&M revi ewed - no changes required Tommy Bowman MD alcohol use, average drinks per day <1 Pilar Henao alcohol use yes Pilar Henao alcohol use, average drinks per day <1 Tommy Bowman MD alcohol use yes Tommy Bowman MD social history E&M S moking History: Laila singh has never smoked. Tommy Bowman MD social history reviewed E&M revi ewed - no changes required Tommy Bowman MD number of grandchildren Tommy Rueda smoking status Never smoker Kimberli Rueda FUNCTIONAL STATUS Date Observation Value Provider HRA, CV Assess/Plan, Angina (inactive) Management Plan continue current therapy Tommy Bowman MD HRA, CV Assess/Plan, Angina (inactive) Management Plan continue current therapy Tommy Bowman MD HRA, CV Assess/Plan, Angina (inactive) Management Plan continue current therapy Tommy Bowman MD HRA, CV Assess/Plan, Angina (inactive) Management Plan continue current therapy Kimani Roper FAMILY HISTORY Family Member Condition Maternal Grandmother Family History of L vic Cancer: Full Brother Family History of Pr ostate Cancer: Father Family History of CV A or Stroke: Mother Family History Coron shantel Heart Disease female < 65: INSURANCE PROVIDERS Payer name Policy type / Coverage type [place] red green party ID [facility] [id number] [place] PART B Medicare [id number] ADVANCE DIRECTIVES Name Date POWER [employer]AN Date Name Performer Cardiology: T he elevated MPO has resolved. CRP up to 3.8 from 2.4. Lppla2 increased at 75. No peridontal disease per dental. Increase Beckley 3. Unable to tolerate pravastatin 20mg daily due to myalgias. Continue curcumin 500mg BID Tommy Bowman MD Cardiology: s leeps 7 hours with CPAP Tommy Bowman MD Cardiology: c r decreased to 1.03 from 1.22. No significant microalbuminuria. BP controlled. 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 Lifestyle mods recommended to prevent progression. Tommy Bowman MD Cardiology: A 1last 5.3 worsening to over 6.0. Patient previously decided not to start metformin due to potential side effects. Berberine was ineffective. 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 Continue low-glycemic load regimen. Tommy Bowman MD Cardiology: L DL-p over 2000 with elevated oxLDL. Increase omega3. cont grape seed extract (trans resveratrol) for oxidized LDL. ApoE 3/3. Vit D and CoQ 10 levels ok. Unable to tolerate pravastatin 20mg daily due to myalgias. Patient previously tried berberine and bergamot without success. D/C bergamot at this time (1000mg daily) as it was ineffective after rechallenge. Start ezetimibe 10 mg once daily. Tommy Bowman MD Cardiology: S table. Did not tolerate plavix due to bruising. Resume aspirin 81 mg daily due to history of NSTEMI. Patient did not tolerate crestor twice a week or pravastatin 20mg daily. Increase omega 3 for plaque stabilization. Tommy Bowman MD Cardiology: T MAO has increased and was previously normal. 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 Continue Probiotic. Tommy Bowman MD Cardiology: T he elevated MPO has resolved. CRP 2.4 decreasing. Lppla2 increased again. No peridontal disease per dental. Resumed Beckley 3. Unable to tolerate pravastatin 20mg daily due to myalgias. Continue curcumin 500mg BID Tommy Bowman MD Cardiology: s leeps 7 hours with CPAP Tommy Bowman MD Cardiology: c r 1.22. elevated sdma. No microalbuminuria. BP controlled. 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 Lifestyle mods recommended to prevent progression. Tommy Bowman MD Cardiology: A 1last 5.8. Patient previously decided not to start metformin due to potential side effects. Berberine was ineffective. 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 Continue low-glycemic load regimen. Will get a1c done with Dr Morrison as recent lab report was missing this test. normal insulin. fasting glucose 100s. Tommy Bowman MD Cardiology: L DL-p over 1700 with elevated oxLDL. Resume omega3. cont grape seed extract (trans resveratrol) for oxidized LDL. ApoE 3/3. Vit D and CoQ 10 levels ok. Unable to tolerate pravastatin 20mg daily due to myalgias. Patient previously tried berberine and bergamot without success. Will rechallenge with bergamot at this time (1000mg daily) Tommy Bowman MD Cardiology: S table. Did not tolerate plavix due to bruising. Resume aspirin 81 mg daily due to history of NSTEMI. Patient did not tolerate crestor twice a week or pravastatin 20mg daily. resume omega 3 for plaque stabilization. Tommy Bowman MD Cardiology: T he elevated MPO and LpPLA2 have resolved. No peridontal disease per dental. Continue Beckley 3. Unable to tolerate pravastatin 20mg daily due to myalgias. Continue curcumin 500mg BID Tommy Bowman MD Cardiology: s leeps 7 hours with CPAP Tommy Bowman MD Cardiology: g fr remains close to 60 and unchanged from before. No microalbuminuria. BP controlled. 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 Lifestyle mods recommended to prevent progression. Tommy Bowman MD Cardiology: A 1c down to 5.8 from 6.4. Patient decided not to start metformin due to potential side effects. Berberine was ineffective. 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 Continue low-glycemic load regimen. Tommy Bowman MD Cardiology: c ont 3 tabs of omega3. cont grape seed extract (trans resveratrol) for oxidized LDL which is starting to decrease. ApoE 3/3. Vit D and CoQ 10 levels ok. Unable to tolerate pravastatin 20mg daily due to myalgias. Patient previously tried berberine and bergamot without success. Recommend continued lifestyle modification to further improve prediabetes. Tommy Bowman MD Cardiology: S table. Did not tolerate plavix due to bruising. Continue aspirin 81 mg daily. Patient did not tolerate crestor twice a week or pravastatin 20mg daily. cont omega 3 for plaque stabilization. TMAO has decreased to normal. Continue Probiotic. Tommy Bowman MD Cardiology:MPO and L pPLA2 are also elevated. Continue Beckley 3. Add statin. Add curcumin 500mg BID. Recommend dental evaluation. Tommy Bowman MD Cardiology:sleeps 6-7 hours with CPAP Tommy Bowman MD Cardiology:estimated gfr 56. No microalbuminuria. BP controlled. 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 Lifestyle mods and metformin recommended to prevent progression. Tommy Bowman MD Cardiology:A1c 6.4%. Continue low-glycemic load regimen. Start Metformin ER 500mg daily. Tommy Bowman MD Cardiology:cont 3 ta bs of omega3. Stop Bergamot BPF 1000mg daily. cont grape seed extract (trans resveratrol) for oxidized LDL. OxLDL is increasing. ApoE 3/3. Vit D and CoQ 10 levels ok. Recommend retrial of statin due to significant elevated inflammation markers. Recommend pravastatin 20mg daily. Tommy Bowman MD Cardiology:Stable. D id not tolerate plavix due to bruising. Continue aspirin 81 mg daily. Patient did not tolerate crestor twice a week. cont omega 3 for plaque stabilization. TMAO has increased to over 30 - recommend avoid red meats and limit eggs. Already on probiotic - recommend changing brand of probiotic when current bottle is done. 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 Tommy Bowman MD Cardiology:sleeps 6-7 hours with CPAP Tommy Bowman MD Cardiology:estimated gfr 50. 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 Lifestyle mods and metformin recommended to prevent progression. Tommy Bowman MD Cardiology:worsening . now following low sugar diet. more fiber. stop berberine. start metformin ER 500mg daily Tommy Bowman MD Cardiology:worsening off statin. berberine ineffective and may stop. cont 3 tabs of omega3. start Bergamot BPF 1000mg daily. cont grape seed extract (trans resveratrol) for oxidized LDL. Tommy Bowman MD Cardiology: S table. Did not tolerate plavix due to bruising. Continue aspirin 81 mg daily. Patient did not tolerate crestor twice a week. cont omega 3 for plaque stabilization. request copy of [facility] stress test in apr 2016. TMAO elevated over 20 - recommend avoid red meats and limit eggs. Already on probiotic. 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 Patient BP is at goal. She has mild microalbuneria. Will consider HUNTER inhibitor at next visit if microalbuneria persists after treatment of prediabetes. Tommy Bowman MD Cardiology:A1c 6.1. Recommend a low glycemic load Mediterrean diet. Recommend berberine 500 mg twice daily. Tommy Bowman MD Cardiology:New diagn osis. Patient continues to complain of fatigue. Will refer patient for CPAP titration. Tommy Bowman MD Cardiology:LDL-P is elevated at over 1300. Her oxidized LDL is greater than 60. Continue crestor 10 mg twice a week. Recommend starting omega-3 1000 mg twice a day. Recommend trans resvetrol 250 mg daily. Continue CoQ-10 100 mg daily. Tommy Bowman MD Cardiology:Recent ec ho revealed normal LV systolic function. Tommy Bowman MD Cardiology:Stable. D id not tolerate plavix due to bruising. Continue aspirin 81 mg daily. Patient is tolerating statin. Tommy Bowman MD Cardiology:First deg ree AV block with poor R wave progression in precordial leads. Patient denies any syncopal events. Poor R wave progression may be due to her coronary disease. Will check echo to assess LV function given her history of left sided chest wall radiation for her breast cancer. Tommy Bowman MD Cardiology:Patient o ccasionally gasps for breath over night. No previous diagnosis of sleep apnea. Recommend home sleep study. Tommy Bowman MD Cardiology:Recent sm all non-stemi. Recommend dual antiplatelet therapy with ASA/plavix for one year per the CURE trial. Recommend starting statin therapy with crestor 10 mg twice a week. Will check advanced lipid profile and inflammatory markers to evaluate for other contributors to her CAD. Suspect her left sided chest wall radiation is a contributor. Tommy Bowman MD Cardiology:Recent LD L 144. Recommend starting statin therapy and omega 3 1000 mg daily to lower inflammation and stabilize plaque. Recommend CoQ10 100 mg daily. Tommy Bowman MD HISTORY OF PROCEDURES Procedure Date Procedure Name Provider Procedure Notes S shine EKG Tommy Bowman MD complet ed SNOMED-CT: 525261577 387404 Current Medications Documented Tommy Bowman MD completed SNOMED-CT: 147418396 282537 Current Medications Documented Tommy Bowman MD completed EKG Tommy Bowman MD complet ed SNOMED-CT: 947457371 640700 Current Medications Documented Tommy Bowman MD completed
--- OUTSIDE RECORDS SUMMARY | 2024-06-19 23:37 | XMS_ITS | Encounter Summary ---
Author Organization [employer] Address [address] Kramer: Epic Prelude ADT [place] [address] Care Team Providers Care Senior Net Developer Architect Name Role Phone Tuan Morrison MD Primary Care Provider +1- [phone] Encounter Details Date Type Department Care Team (Late st Contact Info) Description 02/20/1990 Outpatient Historical Kofi Gallardo MD [address] 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
--- OUTSIDE RECORDS SUMMARY | 2024-06-19 23:37 | XMS_ITS | Encounter Summary ---
Author Organization [facility] Address [address] Kramer: Epic Prelude ADT [place] [address] Care Team Providers Care Rn Maternity Name Role Phone Tuan Morrison MD Primary Care Provider +1- [phone] Encounter Details Date Type Department Care Team (Late st Contact Info) Description 02/06/1991 Outpatient Historical Kofi Gallardo MD [address] 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
--- OUTSIDE RECORDS SUMMARY | 2024-06-19 23:37 | XMS_ITS | Encounter Summary ---
Author Organization [facility] Healthcare Address [address] [place] [address] Care Team Providers Care Record Press Tender Name Role Phone Unavailable Primary Care Provider Unavailabl e Reason for Visit * Diagnostic Imaging (Routine) - Closed Specialty Diagnoses / Procedures Referred By Contac t Referred To Contact Diagnoses Malignant neoplasm of left female breast, unspecified estrogen receptor status, unspecified site of breast (HCC) Procedures Breast Imaging Screening Outside Reference Mena Mansfield MD [address] [place] [address] Phone: tel: fax: Referral ID Status Reason Start Date Expiration Date Visits Re quested Visits Authorized [id number] Closed 05/12/2023 06/10/2024 1 1 Encounter Details Date Type Department Care Team (Late st Contact Info) Description 08/08/2018 Hospital Encounter [facility] Radiology [facility] [address] [place], [place] [id number] Social History Tobacco Use Types Packs/Day Years [...] on file Legal Sex Female 1:53 AM CONCERT PIANIST Gender Identity Not on file Sexual Orientation [...] CDT) Impressions [facility] - 05/12/2023 2:05 PM CONCERT PIANIST These images are for Reference purposes only and have not been reviewed by [facility] Radiology. ??There will be no report generated by a [facility] Radiologist. Narrative [facility] - 05/12/2023 2:05 PM CONCERT PIANIST EXAMINATION: ??Images For Reference Purposes Only us [...]
--- OUTSIDE RECORDS SUMMARY | 2024-06-19 23:37 | XMS_ITS | Encounter Summary ---
Author Organization [facility] Address [address] Kramer: Epic Prelude ADT [place] [address] Care Team Providers Care Construction Carpenters Helper Name Role Phone Tuan Morrison MD Primary Care Provider +1- [phone] Encounter Details Date Type Department Care Team (Late st Contact Info) Description 05/18/1990 Outpatient Historical Kofi Gallardo MD [address] 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
--- OUTSIDE RECORDS SUMMARY | 2024-06-19 23:37 | XMS_ITS | Encounter Summary ---
Author Organization [facility] Address [address] Kramer: Epic Prelude ADT [place] [address] Care Team Providers Care Classics Teacher Name Role Phone Tuan Morrison MD Primary Care Provider +1- [phone] Encounter Details Date Type Department Care Team (Late st Contact Info) Description 02/01/1992 Outpatient Historical Kofi Gallardo MD [address] 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
--- OUTSIDE RECORDS SUMMARY | 2024-06-19 23:37 | XMS_ITS | Encounter Summary ---
Author Organization [employer] [facility] Address [address] Kramer: Epic Prelude ADT [place] [address] Care Team Providers Care Welding Machine Operator Gas Name Role Phone Tuan Morrison MD Primary Care Provider +1- [phone] Encounter Details Date Type Department Care Team (Late st Contact Info) Description 04/18/1990 Outpatient Historical Kofi Gallardo MD [address] 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
--- OUTSIDE RECORDS SUMMARY | 2024-06-19 23:37 | XMS_ITS | Encounter Summary ---
Author Organization [employer] Address [address] [place] [address] Care Team Providers Care Sr. 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 Strategic Sourcing Manager Relationship Specialty Start Date End Date Tuan Morrison MD [address] [place] [address] PCP - General 03/25/15 documented as of this encounter
--- OUTSIDE RECORDS SUMMARY | 2024-06-19 23:37 | XMS_ITS | Encounter Summary ---
Author Organization [facility] Address [facility] [facility] [place] [address] Care Team Providers Care Chemical Mixer Name Role Phone Tuan Morrison MD Primary Care Provider +1- [phone] Encounter Details Date Type Department Care Team (Late st Contact Info) Description 11/02/2023 Lab Requisition [facility] - DermPath Lab [address] [place] [phone] Guru Rabago MD [address] [phone] Social History Tobacco Use Types Packs/Day Years Used Date Smoking Tobacco: Never Assessed Sex and Gender Information Value Date Recorded Sex Assigned at Female 05/01/2024 6:42 PM ROLL SHOP SUPERVISOR Gender Identity Female 05/01/2024 6:42 PM ROLL SHOP SUPERVISOR Sexual Orientation Bisexual 05/01/2024 6: 42 PM ROLL SHOP SUPERVISOR documented as of this encounter Plan of Treatment Upcoming Encounters Date Type Department Care Team (Latest Contact Info) Description 07/02/2024 10:15 AM ROLL SHOP SUPERVISOR Appointment [facility] [address] [place] [address] 08/02/2024 10:10 AM CDT Hospital Encounter [facility] - Perioperative Surgery [address] [place] [address] [place] [address] [facility] [address] [address] [place] [address] Surgery General 08/02/2024 10:10 AM CDT - 08/02/2024 12:28 PM CDT Surgery [facility] - Perioperative Surgery [address] [place] [address] [place] [id number] [facility] [address] [place] [address] LEFT TOTAL KNEE ARTHROPLASTY Scheduled Procedures Name Priority Associated Diagnoses Date/Ti me ARTHROPLASTY TOTAL KNEE 07/15 10:10 AM CDT documented as of this encounter Procedures Procedure Name Priority Date/Time Associated Diagnosis Comments DERMATOPATHOLOGY Routine 11/01/2023 3:33 AM CDT documented in this encounter Results * DERMATOPATHOLOGY (11/01/2023 3:33 AM CDT) Case Report Dermatopathology Report ? Case: [id number] ? Authorizing Provider: ??Guru Rabago MD ?Collected: ? 11/01/2023 03:33 AM ? Ordering Location: ? [facility] - ??Received: ?11/02/2023 12:35 PM ? DermPath Lab ? Pathologist: ? Angela Bernal MD ? Specimen: ?Skin, right posterior thigh ? 10:55 AM [facility]ER[facility]OR[facility] Final Diagnosis Specimen A. 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 The specimen consists of a shave biopsy measuring 5x3x1 mm. Jar 0. 10:55 AM [facility] DERMATOPATH[facility]OR[facility] Microscopic Description Specimen A. SKIN, [...] with depth. (Compound Lisandro's Nevus) 10:55 AM [facility]ERMATOPATH[facility]OR[facility] Disclaimer An external and internal positive and negative controls are appropriate for the histochemical, immunohistochemical and immunofluorescence stain(s) in this case (if any), except where stated explicitly. The performance characteristics of the stain(s) cited in this report were developed and its performance characteristic determined by the Dermatopathology Laboratory at [facility], directed by Dr. Elaina Curtis. These tests need not be, and therefore are not, approved by the [place] Food and Drug Administration. The tests are used for clinical purposes. Billing Codes Specimen Charges Stain Charges [address]26[address] 1 10:55 AM [facility]ERMAT[facility]ATH[facility] Embedded Images 10:55 AM [facility]ERMATOP[facility] Pathology/Cytolo gy TISSUE SPECIMEN FROM SKIN / Unknown 11/01/2023 3:33 AM CDT 11/02/2023 12:35 PM CDT Guru Rabago MD LAB - PATHOLOGY/CYTO LOGY ORDERABLES DERMATOPATHOLOGY LABORATORY [facility] - Department of Dermatology [facility] [address] [place] [address], [address] [phone] documented in this encounter Visit Diagnoses Not on filedocumented in this encounter Care Teams Chemical Mixer Relationship Specialty Start Date End Date Tuan Morrison MD [address] [facility] [address] PCP - General Family Medicine 04/17/24 documented as of this encounter
--- OUTSIDE RECORDS SUMMARY | 2024-06-19 23:37 | XMS_ITS | Encounter Summary ---
Author Organization [facility] Healthcare Address [address] [place] [address] Care Team Providers Care Bright Cutter Name Role Phone Tuan Morrison MD Primary Care Provider +1- [phone] Reason for Visit * Diagnostic Imaging (Routine) - Closed Specialty Diagnoses / Procedures Referred By Contac t Referred To Contact Diagnoses Malignant neoplasm of unspecified site of left female breast Procedures Breast Imaging [place] [address] [place] [address] Phone: tel: fax: Mena Mansfield MD Phone: tel: fax: Referral ID Status Reason Start Date Expiration Date Visits Re quested Visits Authorized [id number] Closed 05/12/2023 06/10/2024 1 1 Encounter Details Date Type Department Care Team (Late st Contact Info) Description 10/09/2020 Hospital Encounter [facility] Radiology [facility] [address] [place] [address] Social History Tobacco Use Types Packs/Day Years [...] on file Legal Sex Female 1:53 AM BLOCK PILER Gender Identity Not on file Sexual Orientation [...] CDT) Impressions [facility] - 05/12/2023 2:05 PM BLOCK PILER These images are for Reference purposes only and have not been reviewed by [facility] Radiology. ??There will be no report generated by a [facility] Radiologist. Narrative [facility] - 05/12/2023 2:05 PM BLOCK PILER EXAMINATION: ??Images For Reference Purposes Only us [...] documented as of this encounter Care Teams Bright Cutter Relationship Specialty Start Date End Date Tuan Morrison MD [address] [place] [address] PCP - General Family Medicine 09/11/20 documented as of this encounter
--- OUTSIDE RECORDS SUMMARY | 2024-06-19 23:38 | XMS_ITS | Encounter Summary ---
Author Organization [facility] Healthcare Address [address] [place] [address] Care Team Providers Care Card Grinder Helper Name Role Phone Unavailable Primary Care Provider Unavailabl e Reason for Visit * Diagnostic Imaging (Routine) - Closed Specialty Diagnoses / Procedures Referred By Contac t Referred To Contact Diagnoses Malignant neoplasm of unspecified site of left female breast Procedures Breast Imaging Screening Outside Reference Mena Mansfield MD [address] [address] Phone: tel: fax: Mena Mansfield MD Phone: tel: fax: Referral ID Status Reason Start Date Expiration Date Visits Re quested Visits Authorized [id number] Closed 05/12/2023 06/10/2024 1 1 Encounter Details Date Type Department Care Team (Late st Contact Info) Description 08/01/2017 Hospital Encounter [facility] Radiology [facility] [address] [place] [address] Social History Tobacco Use Types Packs/Day [...] on file Legal Sex Female 1:53 AM ECOMMERCE MARKETING SPECIALIST Gender Identity Not on file Sexual Orientation [...] CDT) Impressions [facility] - 05/12/2023 1:55 PM ECOMMERCE MARKETING SPECIALIST These images are for Reference purposes only and have not been reviewed by [facility] Radiology. ??There will be no report generated by a [facility] Radiologist. Narrative [facility] - 05/12/2023 1:55 PM ECOMMERCE MARKETING SPECIALIST EXAMINATION: ??Images For Reference Purposes Only us [...]
--- OUTSIDE RECORDS SUMMARY | 2024-06-19 23:38 | XMS_ITS | Data Portability ---
Author Organization [facility] - [facility], [facility] Address [address] [place] [address] Assessment No assessment recorded. Plan of Treatment Reminders Order Date Submit Date Provider Last Modified By Organization Details Last Modified Time Details Appointments [facility] PATIENT 2024 01:00P Jennie Morrison M.D. Not available Not available Not available Lab H pylori urea breath test, co2 infrared 2023 024 [facility] In-House Results, For Internal Use Only, Do Not Delete/merge, [id number] 03/01/2024 07:36:05 culture, skin 2024 025 [facility] In-House Results, For Internal Use Only, Do Not Delete/merge, [id number] 06/08/2024 07:42:40 herpes simplex, culture, genital 2024 025 [facility] In-House Results, For Internal Use Only, Do Not Delete/merge, [id number] 06/08/2024 07:42:41 Referral None recorded . Procedures None recorded . Surgeries None recorded . Imaging None recorded . Medication Orders famotidi ne 40 mg tablet 2023 024 [id number], [address] [place], [address], 03/17/2024 19:49:13 Calcarea Carbonic a 2023 024 [facility], [address] [place], [address], 05/01/2024 15:03:38 OrthoDig estZyme 2023 024 [facility], [address] [place], [address], 05/01/2024 15:03:38 Valtrex 500 mg tablet 2024 025 [facility], [address] [place], [address], 06/08/2024 00:33:36 Patient TargetsNo targets recorded. Patient Instructions Encounter Date Encounter Id Patient Instructions Last Modified By Organization Details Last Modified Time 12/20/2023 [id number] Continue same un til EGD/OV Dr. Pina scheduled 01/23/2924 [email or web address] Not available 12/20/2023 18:07:20 01/26/2024 [id number] gastroesophageal reflux disease (GERD): care instructions [email or web address] Not available 01/26/2024 16:29:29 Pepcid 20 mg bid [email or web address] Not available 01/26/2024 16:29:29 05/01/2024 [id number] Arnica 30x 3 tab lets 4 times daily 2 days before and 7 days after surgery. [email or web address] Not available 05/01/2024 15:02:51 Reason for Referral None Reported. Results Created Date Observation Date Name Description Value Unit Range Abnormal Flag Note LastModifiedBy Organization Detail LastModifiedTime 05/01/2005/01/2024 TSH TSH 0.87 uIU/m L 0.30-5 .33 Not Available [facility] (Lab) [address] [place], [address], 05/02/2024 05:43:16 05/31/19 25 05/31/2024 CULTU RE: GENIT AL result report SEE RESULT S BELOW Test: Cultu re: Genit al Speci men Sourc e: Vagin al-Ce rvica l Speci men Type: Swab Speci men Date: 2024 1717 Resul t Date: 2024 1609 Resul t Statu s: Final resul t Resul ting Lab: [facility] [address] [facility] [address] Tel: CULTU RE ----- ----- ----- --- No Neiss eria gonor rhoea e isola cassidy Light Growt h Rosa l Vagin al Kendra STAIN ----- ----- ----- --- No organ isms seen Not Available [facility] (Lab) [address] [facility], [place], [address], 06/05/2024 16:03:55 05/31/1905/31/2024 CULTU RE: HERPE S SIMPL EX VIRUS (HSV) , REFLE X TYPIN G source UROGEN ITAL Not Available [facility] (Lab) [address] [facility], [place], [address], 06/05/2024 16:03:56 05/31/19 25 05/31/2024 CULTU RE: HERPE S SIMPL EX VIRUS (HSV) , REFLE X TYPIN G hsv culture, body fluid NOT ISOLAT ED Perfo rming Organ izati on Infor matio n: Site ID: CB Name: [facility] destinee Patel Addtimothy ss: [address] [place] [address] Dire tor: Rita gregory Not Available [facility] (Lab) [address] [facility], [place], [address], 06/05/2024 16:03:56 12/26/19 24 12/23/2023 MAMMO , unila teral , left and US, breas t, left No observ ation record ed. cwender [facility] [address] [facility], [place], [address], 12/27/2023 00:42:35 12/26/19 24 12/26/2023 MAMMO , scree brandee, bilat eral No observ ation record ed. [facility] [address] [facility], [place], [address], 12/28/2023 11:52:55 02/24/20 24 upper endos copy proce dure (EGD) (PROC ) No observ ation record ed. rlebo Not Available 2023 17:02:49 Result Notes None recorded. Problems Name Problem SNOMED Code Status Onset Date Resolution Date Notes Provider Name and Address Organization Details Recorded Time Idiopathic peripheral neuropathy 47369214 Active 2023 Tuan Morrison MD [address] [place] [address], [phone] , [facility] 4 17:43:46 Menopause present 565192593 Active 2023 Tuan Morrison MD [address] [place] [address], [address] , [facility] 17:45:29 Abscess of breast 45204003 Active 2023 Tuan Morrison MD [address] [place] [address], [address] , [facility] 4 17:45:31 Allergic rhinitis 90799903 Active 2023 Tuan Morrison MD [address] [place] [address], [address] , [facility] 4 14:48:45 Rhinitis 59703267 Active 2023 Tuan Morrison MD [address] [place] [address], [address] , [facility] 4 14:49:35 Clostridium difficile colitis 694275033 Active 2023 Tuan Morrison MD [address] [place] [address], [address] , [facility] 4 14:49:37 Malignant tumor of breast 985375603 Active 2023 Tuan Morrison MD [address] [place] [address], [address] , [facility] 4 14:49:40 Gastritis 5646749 Active 2023 Tuan Morrison MD [address] [facility], [place], [address] , [place] [facility] 4 20:28:46 Menopausal flushing 958536441 Active 2023 Tuan Morrison MD [address] [facility], [place], [address] , [place] [facility] 4 14:59:38 Ulceration of vulva 17136762 Active 2024 Tuan Morrison MD [address] [facility], [place], [address] , [place] [facility] 5 18:00:22 Diarrhea 71363225 Active Not Available [facility] 2 07:59:37 Vomiting 609705087 Active Not Available [facility] 2 07:59:37 Acute abdomen 4012856 Active Not Available [facility] 2 07:59:37 Upper respiratory infection 81653596 Active Not Available [facility] 2 07:59:36 Gastroenteri tis 91903412 Active Not Available [facility] 2 07:59:37 Laryngotrach eitis 46014170 Active Not Available [facility] 2 07:59:37 Tendinitis of foot 144051146 Active Not Available [facility] 2 07:59:37 Osteoarthrit is 089604763 Active Not Available [facility] 2 07:59:37 Bronchitis 58519663 Active Not Available [facility] 2 07:59:37 Palpitations 05962035 Active Not Available [facility] 2 07:59:37 Adverse reaction to drug 87297918 Active Not Available [facility] 2 07:59:37 Reflux Active Not Available [facility] 2 07:59:37 Chronic constipation 358343358 Active Not Available [facility] 2 07:59:37 Raynaud's phenomenon 354425266 Active Not Available [facility] 2 07:59:37 Irritable bowel syndrome 78418287 Active Not Available [facility] 2 07:59:37 Asthma 475773666 Active Not Available [facility] 2 07:59:37 Acute sinusitis 51298615 Active 2016 Not Available [facility] 2 07:59:37 Coronary arterioscler osis 30575769 Active 2016 Not Available [facility] 2 07:59:37 Hyperlipidem ia 74741655 Active 2016 Not Available [facility] 2 07:59:37 Bacterial overgrowth syndrome 64352784 Active 2017 Not Available [facility] 2 07:59:37 Bacterial infection caused by Klebsiella pneumoniae 248968187 Active 2017 Not Available [facility] 2 07:59:37 Candidiasis 54163987 Active 2017 Not Available [facility] 2 07:59:37 Thrombophleb itis of superficial veins of lower extremity 08676090 Active 2017 Not Available [facility] 2 07:59:36 Dyspnea 399701634 Active 2017 Not Available [facility] 2 07:59:36 Diplopia 85717986 Active 2018 Not Available [facility] 2 07:59:36 Hyperglycemi a 82128440 Active 2018 Not Available [facility] 2 07:59:37 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 2018 Not Available [facility] 2 07:59:37 Talipes planus 00581711 Active 2018 Not Available [facility] 2 07:59:37 Acquired pronated forefoot 839368805 Active 2018 Not Available [facility] 2 07:59:37 Low back pain 093915624 Active 2019 Not Available [facility] 2 07:59:36 Acquired genu valgum 08103056 Active 2019 Not Available [facility] 2 07:59:36 Hip pain 66963493 Active 2019 Not Available [facility] 2 07:59:37 Knee pain Active 2019 Not Available [facility] 2 07:59:37 Vertigo 819315955 Active Not Available [facility] 2 07:59:36 Dysphoric mood 76518137 Active Not Available [facility] 2 07:59:37 Nausea 153546432 Active 2020 Not Available [facility] 2 07:59:37 Bleeding from nose 283607627 Active 2020 Not Available [facility] 2 07:59:36 Tinea pedis 7416209 Active 2020 Not Available [facility] 2 07:59:37 History of polyp of colon 868280414 Active 2020 Not Available [facility] 2 07:59:37 Irritable bowel syndrome with diarrhea 316993254 Active 2020 Not Available [facility] 2 07:59:37 Persistent cough 029960232 Active 2020 Not Available [facility] 2 07:59:37 Food poisoning 26561862 Active 2021 Not Available [facility] 2 07:59:37 Post-acute COVID-19 4730386216 Active 2021 Not Available [facility] 2 07:59:37 Fatigue 11444434 Active 2021 Not Available [facility] 2 07:59:37 Cataract 509738824 Active 2021 Not Available [facility] 2 07:59:37 Postviral fatigue syndrome 80841959 Active 2021 Not Available [facility] 2 07:59:37 Thrombophleb itis of superficial veins of lower extremity 11030512 Active 2022 Tuan Morrison MD [address] [place], [address] , [facility] 3 00:40:07 Diabetes mellitus 01237837 Active Not Available [facility] 2 07:59:37 Chronic sinusitis 05467677 Active Not Available [facility] 2 07:59:37 Hypothyroidi sm 20202743 Active Not Available [facility] 2 07:59:37 Osteoarthrit is of hip 971058067 Active Not Available [facility] 2 07:59:37 Osteoarthrit is of knee 139376861 Active Not Available [facility] 2 07:59:37 Problem Notes None recorded. Procedures Surgical History Date Name Laterality Status Provider Name and Address Organization Details Recorded Time 02/29/20 23 lumpectomy of breast completed Janet Leon [facility] 03/08/2023 10:29:54 05/16/19 02 Cholecystectomy completed Tuan Morrison MD [address] [place], [address], [facility] 01/28/2015 11:02:43 05/16/18 90 Hysterectomy completed Tuan Morrison MD [address] [place], [address], [facility] 01/28/2015 11:02:43 Thyroid Surgery completed [facility] 11/12/2013 10:14:00 Lumpectomy completed [facility] 11/12/2013 10:14:00 Hernia Repair completed [facility] 11/12/2013 10:14:00 Eye Surgery completed Tootie Leon [facility] 11/12/2013 10:14:00 Imaging Results Imaging Date Name Status LastModified by Organiz ation Details LastModified Time 12/23/2023 MAMMO, unilateral, left and US, breast, left completed slade [facility] [address] [place] [address], [address], 12/27/2023 00:42:35 12/26/2023 MAMMO, screening, bilateral completed [facility] [address] [place] [address], [address], 12/28/2023 11:52:55 02/24/2024 upper endoscopy procedure (EGD) (PROC) completed rlebo Information not available 02/24/2024 17:02:49 Procedure Notes None recorded. Medical Equipment None Reported. Allergies Allergen ID Allergen Name Allergen Category Reaction Reaction Severity Criticality Documentation Date Start Date Code Code System Note Provider Name and Address Organization Details Recorded Time 31826 erythromy imer medicatio n hives moderate Not available 04/22/20161967 4053 RxNorm Tuan Morrison MD [address] [place], [address], [facility] 6 17:43:41 56835 Flonase medicatio n cough moderate Not available 05/22/20192018 39991 Rx[facility] T[facility] Morrison MD [address] [place], [address], [facility] 0 18:24:03 78125 Levaquin medicatio n Not available Not available Not available 03/10/2021 05188 2 RxNorm [place] [facility] imani, [facility] 1 14:59:20 31651 levofloxa imer medicatio n Not available Not available low 03/25/20222021 28602 RxNorm tendi nitis , C. Diff. Tuan Morrison MD [address] [place], [address], [facility] 4 14:46:27 36481 azithromy imer medicatio n Not available Not available Not available 03/25/20222021 45103 RxNorm [place] Mal[facility] imani, [facility] 2 17:34:07 16331 Substance with sulfonami de structure and antibacte rial mechanism of action (substanc e) medicatio n Not available Not available Not available 03/08/2023 28300 8003 SNOMED Denise Navarro imani [facility] 4 13:38:43 702 Product containin g penicilli n and antibioti c (product) medicatio n Not available Not available Not available 06/11/20132021 66179 05 SNOMED Xiang Mansi diallo [facility] 17:34:07 Medications Name Sig Start Date Stop Date Status Note LastModified by Organization Details LastModified Time Eupatorium Compound 1 sc 10/28 completed Not Available Not Available Not Available OrthoBiotic 2 qd 2020 active Not Available Not Available Not Avai lable compounded medication 1qd 02/08 completed Not Available Not Available Not Available Pneumodoron 1 10 drops qid 10/17 completed Not Available Not Available Not Available Meteoric Iron/Prunus 1sc 06/25 completed Not Available Not Available Not Available OrthoBiotic 2 q day 2020 active Not Available Not Available Not Avai lable Pneumodoron 2 10 drops qid 10/17 completed Not Available Not Available Not Available OrthoBiotic 2 q day 2020 active Not Available Not Available Not Avai lable Calcarea Carbonica 200 1m 2d; 30x 3 tid 2013 active Not Available Not Available Not Avai lable Pneumodoron 2 10 drops qid 09/28 completed Not Available Not Available Not Available compounded medication 3 tid 08/12 completed Not Available Not Available Not Available Biocidin 5 drops bid 02/08 completed Not Available Not Available Not Available compounded medication 1sc 03/25 completed Not Available Not Available Not Available Erysiodoron 1 10 drops qid 09/09 completed Not Available Not Available Not Available Meteoric Iron/Prunus 1sc 10/17 completed Not Available Not Available Not Available Rhus Toxicodendr on 200 2d, 12x 3 bid 2013 active Not Available Not Available Not Avai lable compounded medication 2 doses 12/24 completed Not Available Not Available Not Available Pneumodoron 2 10 drops qid 05/29 completed Not Available Not Available Not Available Biocidin 5 drops bid 2020 active Not Available Not Available Not Avai lable Berberine Plus 1 po bid 02/08 completed Not Available Not Available Not Available Nux Vomica 200c 1m 2013 active Not Available Not Available Not Avai lable Eupatorium Compound 1 ky 10/17 completed Not Available Not Available Not Available Meteoric Iron/Prunus 1sc 05/29 completed Not Available Not Available Not Available Probiotic 225 1 qd 09/09 completed Not Available Not Available Not Available Berberis Quartz 1sc 07/08 completed Not Available Not Available Not Available Eupatorium Compound 1 sc 09/28 completed Not Available Not Available Not Available Meteoric Iron/Prunus 1 sc 10/28 completed Not Available Not Available Not Available compounded medication 3 qid 09/01 completed Not Available Not Available Not Available Pneumodoron 1 10 drops qid 06/25 completed Not Available Not Available Not Available Pulsatilla 200 1m 2d; 30x 3 bid 2013 active Not Available Not Available Not Avai lable Pneumodoron 1 10 drops qid 05/29 completed Not Available Not Available Not Available Lachesis 200 2d; 12x 3 bid 02/20 completed Not Available Not Available Not Available Calcarea Carbonica 200 1m 2d; 12c bid 2023 active Not Available Not Available Not Avai lable OrthoBiotic 2 qd 2020 active Not Available Not Available Not Avai lable Biocidin 5 drops bid 2020 active Not Available Not Available Not Avai lable Endefen 2 scoops per day. 07/01 completed Not Available Not Available Not Available Meteoric Iron/Prunus 1sc 09/28 completed Not Available Not Available Not Available OrthoBiotic 2qd 10/17 completed Not Available Not Available Not Available Eupatorium Compound 1 ky 06/25 completed Not Available Not Available Not Available OrthoDigest Zyme 2 tid before meals 2023 active Not Available Not Available Not Avai lable AKBA Plus one capsule bid 2021 active Not Available Not Available Not Avai lable Pneumodoron 1 10 drops qid 10/28 completed Not Available Not Available Not Available Phosphorus 200 1M 2d; 30x bid 2013 active Not Available Not Available Not Avai lable compounded medication Take one capsule by mouth first thing every morning one-half hour before food or supplemen ts. 2013 active Not Available Not Available Not Avai lable Pneumodoron 1 10 drops qid 11/05 completed Not Available Not Available Not Available Kalium Bichromicum 200 1m 2d; 12x 3 qid 07/08 completed Not Available Not Available Not Available OrthoBiotic 2 qd 02/08 completed Not Available Not Available Not Available Phosphorus 200 1M 2d; 30x bid 2014 active Not Available Not Available Not Avai lable Eupatorium Compound 1 ky 05/29 completed Not Available Not Available Not Available AKBA Plus one capsule bid 2021 active Not Available Not Available Not Avai lable Phosphorus 12x 3 qid 03/13 completed Not Available Not Available Not Available Pneumodoron 1 10 drops qid 09/28 completed Not Available Not Available Not Available Pneumodoron 2 10 drops qid 11/05 completed Not Available Not Available Not Available Phosphorus 200 1M 2d; 30x bid 2014 active Not Available Not Available Not Avai lable Gelsemium 200 1m 2d 03/25 completed Not Available Not Available Not Available Pneumodoron 2 10 drops qid 06/25 completed Not Available Not Available Not Available OrthoDigest Zyme 2 tid before meals 02/20 completed Not Available Not Available Not Available Phosphorus 200 1m 2d; 12 3 tid 07/17 completed Not Available Not Available Not Available Pneumodoron 2 10 drops qid 10/28 completed Not Available Not Available Not Available cyclobenzap rine 10 mg tablet TK 1 T PO BID 07/01 completed Not Available Not Available Not Available anastrozole 1 mg tablet TAKE 1 TABLET BY MOUTH EVERY DAY 05/20 completed Not Available Not Available Not Available doxycycline hyclate 100 mg capsule TAKE 1 CAPSULE BY MOUTH TWICE A DAY 09/01 completed Not Available Not Available Not Available clindamycin HCl 300 mg capsule TAKE 1 CAPSULE BY MOUTH 4 TIMES DAILY FOR 7 DAYS. 05/20 completed Not Available Not Available Not Available ciprofloxac in 750 mg tablet 05/20 completed Not Available Not Available Not Available benzonatate 200 mg capsule TAKE 1 CAPSULE (ORAL) 3 TIMES PER DAY NEEDED 11/03 completed Not Available Not Available Not Available hydrocodone 5 mg-acetamin ophen 325 mg tablet TAKE 1 TABLET BY MOUTH EVERY 4 HOURS NEEDED FOR MODERATE PAIN. MAX DAILY AMOUNT: 6 TABLETS 05/20 completed Not Available Not Available Not Available AK-Poly-Paige 500 unit-10,000 unit/gram eye ointment active Not Available Not Available Not Available meloxicam 15 mg tablet TAKE 1 TABLET BY MOUTH EVERY DAY 02/10 completed Not Available Not Available Not Available sucralfate 1 gram tablet 01/25 completed Not Available Not Available Not Available ondansetron HCl 4 mg tablet TAKE 1 TABLET BY MOUTH EVERY 6 HOURS NEEDED FOR NAUSEA FOR 3 DAYS 01/25 completed Not Available Not Available Not Available famotidine 40 mg tablet TAKE 1 TABLET BY MOUTH EVERY DAY 2023 active Not Available Not Available Not Avai lable prednisone 20 mg tablet TAKE 2 TABLETS BY ORAL ROUTE ONCE DAILY FOR 5 DAYS TAKE WITH FOOD 11/03 completed Not Available Not Available Not Available nystatin 500,000 unit tablet TAKE 1 TABLET BY MOUTH TWICE A DAY 05/29 completed Not Available Not Available Not Available diphenoxyla te-atropine 2.5 mg-0.025 mg tablet TAKE 2 TABLETS 4 TIMES A DAY BY ORAL ROUTE NEEDED. 12/24 completed Not Available Not Available Not Available metronidazo le 500 mg tablet 09/09 completed Not Available Not Available Not Available clopidogrel 75 mg tablet 07/01 completed Not Available Not Available Not Available valacyclovi r 500 mg tablet TAKE 1 TABLET TWICE A DAY BY ORAL ROUTE NEEDED. 2024 active Not Available Not Available Not Avai lable sulfamethox azole 800 mg-trimetho prim 160 mg tablet TAKE 1 TABLET BY MOUTH TWICE A DAY FOR 7 DAYS 06/27 completed Not Available Not Available Not Available doxycycline monohydrate 100 mg tablet 100 mg by oral route. 03/20 completed Not Available Not Available Not Available triamcinolo ne acetonide 0.1 % topical cream SABA THIN LAYER EXT AA BID 07/01 completed Not Available Not Available Not Available vancomycin 125 mg capsule TAKE 1 CAPSULE (125 MG TOTAL) BY MOUTH 2 (TWO) TIMES A DAY FOR 5 DAYS 09/01 completed Not Available Not Available Not Available ketorolac 0.5 % eye drops INSTIL 1 DROP INTO OPERATIVE EYE THREE TIMES A DAY 3 DAYS BEFORE SURGERY 03/25 completed Not Available Not Available Not Available oxycodone-a cetaminophe n 5 mg-325 mg tablet 09/01 completed Not Available Not Available Not Available famotidine 20 mg tablet 01/25 completed Not Available Not Available Not Available prednisolon e acetate 1 % eye drops,suspe nsion INSTIL 1 DROP INTO OPERATIVE EYE 3 TIMES A DAY BEGIN THE DAY AFTER SURGERY 05/27 completed Not Available Not Available Not Available meclizine 25 mg tablet 25 mg by oral route. 03/20 completed Not Available Not Available Not Available benzonatate 100 mg capsule TAKE 1 CAPSULE, 3 TIMES A DAY NEEDED FOR 4 DAYS 08/31 completed Not Available Not Available Not Available cephalexin 500 mg capsule TAKE 1 CAPSULE BY MOUTH 4 TIMES DAILY FOR 7 DAYS. 05/20 completed Not Available Not Available Not Available pantoprazol e 40 mg tablet,carmelina yed release TAKE 1 TABLET BY MOUTH EVERY DAY active Not Available Not Available No t Available oseltamivir 75 mg capsule 11/05 completed Not Available Not Available Not Available tobramycin 0.3 % eye drops INSTIL 1 DROP INTO INTO LEFT EYE 3 TIMES A DAY 03/25 completed Not Available Not Available Not Available clotrimazol e-betametha sone 1 %-0.05 % topical cream APPLY TO AFFECTED AREA TWICE A DAY (MORNING & EVENING) FOR 2 WEEKS 11/11 completed Not Available Not Available Not Available ramipril 2.5 mg capsule TAKE 1 CAPSULE BY MOUTH EVERY DAY 12/30 completed Not Available Not Available Not Available Synthroid 75 mcg tablet TAKE 1 TABLET BY MOUTH EVERY DAY active Not Available Not Available No t Available pravastatin 20 mg tablet 05/11 completed Not Available Not Available Not Available ibuprofen 600 mg tablet 09/01 completed Not Available Not Available Not Available cefuroxime axetil 500 mg tablet 05/20 completed Not Available Not Available Not Available levofloxaci n 500 mg tablet 03/10 completed Not Available Not Available Not Available levofloxaci n 750 mg tablet TAKE 1 TABLET BY MOUTH EVERY DAY FOR 5 DAYS 09/01 completed Not Available Not Available Not Available methylpredn isolone 4 mg tablets in a dose pack TAKE 6 TABLETS ON DAY 1 DIRECTED ON PACKAGE AND DECREASE BY 1 TAB EACH DAY FOR A TOTAL OF 6 DAYS 12/24 completed Not Available Not Available Not Available albuterol sulfate HFA 90 mcg/actuati on aerosol inhaler INHALE 2 PUFFS BY MOUTH EVERY 4 HRS NEEDED FOR SHORTNESS OF BREATH OR WHEEZING 11/05 completed Not Available Not Available Not Available ipratropium bromide 42 mcg (0.06 %) nasal spray 11/05 completed Not Available Not Available Not Available ondansetron 4 mg disintegrat ing tablet TAKE 1 TABLET BY MOUTH EVERY 6 HOURS NEEDED FOR NAUSEA 03/08 completed Not Available Not Available Not Available fluticasone propionate 50 mcg/actuati on nasal spray,suspe nsion 05/11 completed Not Available Not Available Not Available metformin ER 500 mg tablet,exte nded release 24 hr TK 1 T PO QD 01/10 completed Not Available Not Available Not Available doxycycline hyclate 100 mg tablet TAKE 1 TABLET BY MOUTH TWICE A DAY FOR 10 DAYS 06/15 /2022 completed Not Available Not Available Not Available ezetimibe 10 mg tablet 05/20 completed Not Available Not Available Not Available rosuvastati n 10 mg tablet 03/30 completed Not Available Not Available Not Available Prilosec OTC 1 po qd active Not Available Not Available Not Available cholecalcif sangeetha (vitamin D3) 1,250 mcg (50,000 unit) capsule Take by oral route. one per day for three days, then one every two weeks. 07/01 completed Not Available Not Available Not Available 5-HTP 100 mg capsule Take 1 capsule twice a day by oral route. 03/30 completed Not Available Not Available Not Available alpha lipoic acid 300 mg capsule Take 1 capsule every day by oral route. 12/01 completed Not Available Not Available Not Available Suprep Bowel Prep Kit 17.5 gram-3.13 gram-1.6 gram oral solution 11/11 completed Not Available Not Available Not Available Eliquis 5 mg tablet TAKE 1 TABLET BY MOUTH EVERY DAY FOR 2 DAYS 02/10 completed Not Available Not Available Not Available ProAir RespiClick 90 mcg/actuati on breath activated TAKE 2 PUFFS BY MOUTH ONCE EVERY 4 HOURS 11/05 completed Not Available Not Available Not Available Nexlizet 180 mg-10 mg tablet TAKE 1 TABLET BY MOUTH EVERY DAY 12/30 completed Not Available Not Available Not Available Paxlovid 150 mg-100 mg tablets in a dose pack (Renal Dose) TAKE 2 TABLETS BY MOUTH TWICE A DAY FOR 5 DAYS 01/25 completed Not Available Not Available Not Available Vitals Date Recorded Body height Body mass index (BMI) Body weight Body temperature Heart rate Systolic blood pressure Diastolic blood pressure Provider Name and Address Organization Details Last Updated DateTime 4 170.18 cm 29.4 kg/m2 56241.9 3 g 99 [degF] 68 /min 152 mm[Hg] 81 mm[Hg] Denise Leon [facility] 4 16:27:38 Date Recorded Body height Body mass index (BMI) Body weight Heart rate Body temperature Systolic blood pressure Diastolic blood pressure Provider Name and Address Organization Details Last Updated DateTime 4 170.18 cm 29 kg/m2 85274.5 9 g 70 /min 98.1 [degF] 124 mm[Hg] 74 mm[Hg] Xiang Leon [facility] 4 15:05:53 Date Recorded Body height Body mass index (BMI) Body weight Heart rate Body temperature Systolic blood pressure Diastolic blood pressure Provider Name and Address Organization Details Last Updated DateTime 4 170.18 cm 29.6 kg/m2 13982.9 6 g 68 /min 98.1 [degF] 147 mm[Hg] 78 mm[Hg] Ju Leon [facility] 4 19:24:08 Date Recorded Body height Body mass index (BMI) Body weight Heart rate Body temperature Systolic blood pressure Diastolic blood pressure Provider Name and Address Organization Details Last Updated DateTime 4 170.18 cm 29.4 kg/m2 00743.3 7 g 60 /min 98.1 [degF] 143 mm[Hg] 79 mm[Hg] Ju Leon [facility] 4 13:47:00 Date Recorded Body height Body mass index (BMI) Body weight Heart rate Body temperature Systolic blood pressure Diastolic blood pressure Provider Name and Address Organization Details Last Updated DateTime 5 170.18 cm 29.7 kg/m2 43811.3 9 g 70 /min 97.5 [degF] 135 mm[Hg] 78 mm[Hg] Xiang Leon [facility] 5 16:43:47 Social History Question Answer Notes LastModified by Organizat ion Details LastModified Time Tobacco Smoking Status Never Smoker MERARY Dao [facility] 11/11/2020 15:03:46 What Is Your Level Of Alcohol Consumption? None amalic Information not available 11/11/2020 Sex: Unknown Functional Status None recorded. Mental Status None recorded. Family History Relationship Description Onset Age of this Age Resolved Age Notes LastModified by Organization Details LastModified Time Brother Malignant tumor of prostate [email or web address] Not available 2015 16:05:29 Mother Malignant tumor of breast [email or web address] Not available 2015 16:05:29 Mother Congestive heart failure 82 [email or web address] Not available 2015 16:05:29 Maternal Grandmother Malignant tumor of lung [email or web address] Not available 2015 16:05:29 Father Cerebrovascu lar accident 69 [email or web address] Not available 12/2015 16:05:29 Notes:Father: Stroke Medical History Condition Response Coronary Artery Disease N Gout N Blood Diseases N Kidney Stones N Hyperthyroidism N Hypothyroidism Y Depression N COPD N Developmental or Behavioral Disorders N Anxiety Disorder N Muscle, Joint, or Bone Problems Y Vision or Eye Problems N Arthritis N Head Injury/Concussion N Congenital Anomalies N Cancer Y Stroke N ADHD N Bladder or Kidney Problems N Hospital Admission other than N High Cholesterol N Liver Disease N Headaches N Fibromyalgia N Kidney Disease N Ear or Hearing Problems N Thyroid Problems N Skin Problems N Anemia N Constipation N Mental Illness N Diabetes N Bedwetting N Seizures/Epilepsy N Heart Problems/Murmur N Tuberculosis N Diverticulitis N Asthma N Allergies N Reflux/GERD N Heart Disease N Pulmonary Embolism N Hypertension N Osteoporosis N Chicken Pox Y Autism Spectrum Disorder (ASD) N Gynecological HistoryNo gynecological history recorded. Obstetrics History GPAL:G 0 P 0 0 0 0 Immunizations Vaccine Type Date Status Note Provider Nam e and Address Organization Details Recorded Time COVID-19, mRNA, LNP-S, PF, 30 mcg/0.3 mL dose 07/12/2020 completed [facility] 05/27/2022 17:05:03 COVID-19, mRNA, LNP-S, PF, 30 mcg/0.3 mL dose 08/02/2020 completed [facility] 05/27/2022 17:05:03 COVID-19, mRNA, LNP-S, PF, 30 mcg/0.3 mL dose, nicolasa-sucrose 12/25/2021 completed [facility] 05/27/2022 17:05:03 influenza, unspecified formulation 04/29/2022 completed [facility] 05/27/2022 17:05:03 Past Encounters Encounter ID Performer Location Encounter Start Date Encounter Closed Date Diagnosis/Indication Diagnosis SNOMED-CT Code Diagnosis ICD10 Code Diagnosis Note [id number] Tuan Morrison MD Main Office [address] [place] [address] [id number] 3 06/11/2013 10:07:16 06/11/2013 11:31:24 Diabetes mellitus 69033768 Chronic sinusitis 86770969 Hypothyroidism 96645731 Osteoarthritis of hip 697163850 Osteoarthr itis of knee 951417088 [id number] Tuan Morrison MD Main Office [address] [place] [address] [id number] 3 08/17/2013 17:59:07 08/17/2013 19:01:48 Vertigo 873414382 Dysphoric mood 09809543 Chronic sinusitis 78725873 Hypothyroidism 63686616 Diabetes mellitus 45394674 Osteoarthr itis of knee 246647651 [id number] Dinorah Katzs Main Office [address] [place] [address] [id number] 3 09/11/2013 10:04:17 09/11/2013 11:09:42 Hypothyroidism 68251168 Dysphoric mood 81685916 Diabetes mellitus 62518084 Chronic sinusitis 42915185 Osteoarthritis of hip 630093133 Osteoarthr itis of knee 332633899 [id number] [place] [address] 28156-013 3 11/12/2013 10:04:17 11/12/2013 11:19:01 Hypothyroidism 35947809 Dysphoric mood 13547288 Diabetes mellitus 99932258 Chronic sinusitis 74829039 Osteoarthritis of hip 236103430 Osteoarthr itis of knee 563488527 [id number] Tuan Morrison MD Main Office [address] [place] [address] [id number] 3 01/24/2014 13:07:01 01/24/2014 14:02:08 Diarrhea 42592955 Vomiting 414853409 Acute abdomen 3259185 [id number] Tuan Morrison MD Main Office [address] [place] [address] 03679-705 3 02/11/2014 10:07:24 02/11/2014 11:05:29 Upper respiratory infection 63635625 Hypothyroidism 16102237 Gastroenteritis 25181481 Laryngotracheitis 18078899 [id number] Tuan Morrison MD Main Office [address] [place] [address] 07868-835 3 05/13/2014 10:03:16 05/13/2014 11:22:44 Tendinitis of foot 820844156 Osteoarthritis 135380140 History of obesity 472761537 Chronic sinusitis 91197709 Hypothyroidism 79028505 [id number] Tuan Morrison MD Main Office [address] [place] [address] 05284-727 3 07/15/2014 09:27:05 07/15/2014 11:10:07 Bronchitis 94671494 History of asthma 024925484 Tendinitis of foot 466945745 Osteoarthritis 130281576 History of obesity 339015199 Chronic sinusitis 60204245 Hypothyroidism 86292964 [id number] Tuan Morrison MD Main Office [address] [place] [address] 93689-960 3 09/12/2014 18:06:39 09/12/2014 19:38:25 Palpitations 60005041 Adverse re action to drug 91516635 Bronchitis 01358374 History of asthma 621182988 Tendinitis of foot 433650378 Osteoarthritis 073621076 History of obesity 999639917 Chronic sinusitis 52342359 Hypothyroidism 69975991 [id number] Tootie Elliott Main Office [address] [place] [address] 97927-758 3 10/15/2014 10:30:09 10/15/2014 11:55:53 Reflux 03179986 Chronic constipation 800199885 Palpitations 22359378 Adverse re action to drug 01235477 Bronchitis 07063511 History of asthma 713771705 Tendinitis of foot 314040597 Osteoarthritis 557720067 History of obesity 772127522 Chronic sinusitis 08600253 Hypothyroidism 02227591 [id number] Shorewoodbraydon Nazario Main Office [address] [place] [address] [id number] 3 12/09/2014 13:26:47 12/09/2014 14:28:30 Palpitations 31285861 Raynaud's phenomenon 510750811 Hypothyroidism 00504851 29845 [address] Office [address] [place] [address] 61370-253 3 01/28/2015 10:00:17 01/28/2015 11:34:40 Chronic sinusitis 59843598 Diabetes mellitus 53762730 History of asthma 742331997 History of obesity 392205473 Osteoarthritis 529113614 Palpitations 97425413 Reflux 23231433 [id number] Ju Cornell Main Office [address] [place] [address] 37252-776 3 04/22/2015 11:29:47 04/22/2015 13:13:31 Chronic sinusitis 28150647 J32.9 Diabetes mellitus 920841 09 E11.9 History of asthma 251145 007 Z87.09 History of obesity 87686 3001 Z91.89 Osteoarthritis 788360847 M19.90 Palpitations 78508244 R0 0.2 Reflux 19702143 K21.9 Irritable bowel syndrome 50717368 K58.9 [id number] Shorewoodbraydon Nazario Main Office [address] [place] [address] [id number] 3 05/15/2015 12:28:46 05/15/2015 13:43:15 Bronchitis 90456509 J40 Asthma 411631375 J45.90 9 Convalescence 399142386 Z51.89 [id number] Ju Cornell Main Office [address] [place] [address] 69368-557 3 07/22/2015 14:21:43 07/22/2015 16:14:06 Hypothyroidism 17516044 E03.9 History of asthma 706548 007 Z87.09 History of obesity 05068 3001 Z91.89 Diabetes mellitus 549686 09 E11.9 Bronchitis 19460928 J40 [id number] Tuan Morrison MD Main Office [address] [place] [address] 86715-216 3 10/28/2015 10:33:17 10/28/2015 11:51:30 Reflux 14354856 K21.9 Osteoarthritis 735063231 M19.90 Chronic constipation 236 024490 K59.00 Dysphoric mood 56747262 R45.89 Overweight 587935148 E66 .3 [id number] Tuan Morrison MD Main Office [address] [place] [address] 64775-901 3 12/30/2015 10:58:32 12/30/2015 12:22:55 Reflux 70752769 K21.9 Osteoarthritis 167808991 M19.90 Chronic constipation 236 880170 K59.00 Dysphoric mood 54181526 R45.89 Overweight 840066451 E66 .3 Candidiasis 64111069 B37 .9 [id number] Tuan Morrison MD Main Office [address] [place] [address] 94351-601 3 01/21/2016 18:31:34 01/21/2016 19:50:00 Coronary arteriosclerosis 63973551 I25.10 Irritable bowel syndrome 28430785 K58.9 Asthma 866465101 J45.90 9 Chronic constipation 236 679068 K59.00 Osteoarthritis 300476646 M19.90 Hypothyroidism 91000787 E03.9 [id number] Tuan Morrison MD Main Office [address] [place] [address] 06938-044 3 03/30/2016 14:09:34 03/30/2016 16:19:30 Irritable bowel syndrome 71744070 K58.9 Chronic constipation 236 742257 K59.00 Hypothyroidism 77691615 E03.9 Asthma 632603014 J45.90 9 Coronary arteriosclerosis 13111311 I25.10 Osteoarthritis 563477320 M19.90 Contact dermatitis 83629 004 L25.9 [id number] Tuan Morrison MD Main Office [address] [place] [address] [id number] 3 04/22/2016 16:52:17 04/22/2016 17:47:13 Lumbar sprain 955849317 S33.5XXA [id number] Tuan Morrison MD Main Office [address] [place] [address] 97227-049 3 05/27/2016 18:34:51 05/27/2016 19:38:31 Acute sciatica 996942683 M54.32 Osteoarthritis 847423772 M19.90 Hypothyroidism 65070908 E03.9 [id number] Tuan Morrison MD Main Office [address] [place] [address] 30956-532 3 07/01/2016 10:02:22 07/01/2016 11:18:52 Acute sinusitis 58326021 J01.90 Dysphoric mood 63652634 R45.89 Hypothyroidism 29818525 E03.9 Upper resp iratory infection 48288075 J06.9 Diabetes mellitus 056467 09 E11.9 Coronary arteriosclerosis 70131491 I25.10 Hyperlipidemia 00395528 E78.5 [id number] Tuan Morrison MD Main Office [address] [place] [address] 91978-394 3 07/08/2016 17:00:29 07/08/2016 17:59:34 Bronchitis 19357755 J40 Acute sinusitis 89267319 J01.90 Dysphoric mood 66630633 R45.89 Hypothyroidism 41498100 E03.9 Upper resp iratory infection 76226171 J06.9 Diabetes mellitus 209055 09 E11.9 Coronary arteriosclerosis 27584406 I25.10 Hyperlipidemia 07109734 E78.5 [id number] Tuan Morrison MD Main Office [address] [place] [address] 59531-368 3 08/16/2016 15:33:51 08/16/2016 17:04:05 Vertigo 158202179 R42 Coronary arteriosclerosis 72397506 I25.10 Obstructiv e sleep apnea syndrome 52654034 G47.33 Palpitations 57217220 R0 0.2 Heartburn 91150345 R12 [id number] Tuan Morrison MD Main Office [address] [place] [address] 79741-801 3 09/28/2016 13:56:03 09/28/2016 15:28:23 Vertigo 936765712 R42 Chronic sinusitis 143556 00 J32.9 Thrombophl ebitis of superficial veins of lower extremity 49645199 I80.291 Polyp of colon 54701991 K63.5 Diverticular disease 397 930713 K57.90 Coronary arteriosclerosis 27973789 I25.10 Diabetes mellitus 696350 09 E11.9 [id number] Tuan Morrison MD Main Office [address] [place] [address] 48642-649 3 01/10/2017 14:41:06 01/10/2017 16:01:12 Irritable bowel syndrome 41121772 K58.9 Hypothyroidism 14512511 E03.9 Coronary arteriosclerosis 63978382 I25.10 Hyperlipidemia 49234469 E78.5 Diabetes mellitus 727712 09 E11.9 [id number] Tuan Morrison MD Main Office [address] [place] [address] 16819-924 3 02/16/2017 14:44:54 02/16/2017 16:06:15 Dyspnea 499457790 R06.02 Anxiety 00924333 F41.9 Chest pain 82645011 R07. 9 [id number] Tuan Morrison MD Main Office [address] [place] [address] 80858-419 3 05/11/2017 14:43:00 05/11/2017 16:54:56 Indigestion 309591200 K30 Food intolerance 5503181 0 K90.49 Hypothyroidism 90662219 E03.9 Thyroid nodule 171093608 E04.1 History of cholecystectomy 210129182 Z90.49 Diverticular disease 397 765245 K57.90 [id number] Tuan Morrison MD Main Office [address] [place] [address] 85889-444 3 05/27/2017 15:05:18 05/27/2017 16:44:57 Irritable bowel syndrome 25618551 K58.9 Pigmented skin lesion 20 1904737 L81.9 Chronic constipation 236 587720 K59.00 Hypothyroidism 92776736 E03.9 Hyperglycemia 15146509 R 73.9 [id number] Tuan Morrison MD Main Office [address] [place] [address] 25160-676 3 07/11/2017 17:57:25 07/11/2017 19:38:17 Ankle pain 496963283 M25.572 Disorder of bone 0564436 3 M89.9 [id number] Tuan Morrison MD Main Office [address] [place] [address] 01024-627 3 08/02/2017 15:39:46 08/02/2017 16:59:32 Tibialis posterior tendinitis 184959599 M76.829 Disorder of bone 4324704 3 M89.9 Irritable bowel syndrome 46586951 K58.9 Pigmented skin lesion 20 5734126 L81.9 Chronic constipation 236 469788 K59.00 Hypothyroidism 30415513 E03.9 Hyperglycemia 67866202 R 73.9 [id number] Tuan Morrison MD Main Office [address] [place] [address] 68885-484 3 11/01/2017 13:59:49 11/01/2017 15:22:44 Bacterial overgrowth syndrome 88786487 A04.9 Bacterial infection caused by Klebsiella pneumoniae 612579599 B96.1 Candidiasis 71143291 B37 .9 Irritable bowel syndrome 43898373 K58.9 Asthma 872252088 J45.90 9 Chronic constipation 236 284081 K59.00 Osteoarthritis of hip 23 3903868 M16.9 Osteoarthr itis of knee 533473883 M17.9 Gastroesop hageal reflux disease 342365551 K21.9 [id number] Tuan Morrison MD Main Office [address] [place] [address] 54479-628 3 11/15/2017 13:41:23 11/15/2017 15:09:03 Thrombophlebitis of superficial veins of lower extremity 16461103 I80.291 [id number] Tuan Morrison MD Main Office [address] [place] [address]-646 3 11/29/2017 12:10:18 11/29/2017 13:46:44 Dyspnea 548133327 R06.02 Dysphoric mood 92440741 R45.89 Hypothyroidism 35257222 E03.9 Coronary arteriosclerosis 43537527 I25.10 Thrombophl ebitis of superficial veins of lower extremity 65587092 I80.291 [id number] Tuan Morrison MD Main Office [address] [place] [address]-264 3 01/02/2018 12:00:29 01/02/2018 13:36:29 Dysphoric mood 28931182 R45.89 Hypothyroidism 93718526 E03.9 Coronary arteriosclerosis 66488506 I25.10 Thrombophl ebitis of superficial veins of lower extremity 51518657 I80.291 Intolerant of heat 87975 007 R20.8 Gastroesop hageal reflux disease 600150923 K21.9 [id number] Tuan Morrison MD Main Office [address] [place] [address]-097 3 02/20/2018 12:04:55 02/20/2018 14:00:38 Dysphoric mood 08208102 R45.89 Hypothyroidism 07102166 E03.9 Coronary arteriosclerosis 46360203 I25.10 Thrombophl ebitis of superficial veins of lower extremity 00826530 I80.291 Intolerant of heat 05406 007 R20.8 Gastroesop hageal reflux disease 383880449 K21.9 Diabetes mellitus 577421 09 E11.9 [id number] Tuan Morrison MD Main Office [address] [place] [address]-035 3 04/12/2018 16:15:10 04/12/2018 17:37:12 Acute sinusitis 22734545 J01.90 Bronchitis 52090132 J40 [id number] Tuan Morrison MD Main Office [address] [place] [address]-588 3 05/29/2018 18:14:50 05/29/2018 20:21:46 Benign paroxysmal positional vertigo 675914719 H81.13 Diplopia 04888297 H53.2 Chest wall pain 14211585 6 R07.89 Abdominal pain 77125219 R10.9 [id number] Tuan Morrison MD Main Office [address] [place] [address] 09637-286 3 06/26/2018 17:24:33 06/26/2018 19:18:27 Diplopia 56097995 H53.2 Vertigo 896459459 R42 Epidemic vertigo 8392636 01 A88.1 [id number] Tuan Morrison MD Main Office [address] [place] [address] 29508-429 3 07/17/2018 19:04:01 07/17/2018 20:34:43 Bronchitis 85890316 J40 Vertigo 421167238 R42 Diplopia 91429480 H53.2 Hypothyroidism 54089795 E03.9 [id number] Tuan Morrison MD Main Office [address] [place] [address] 76002-601 3 10/17/2018 10:59:47 10/17/2018 12:16:06 Vertigo 865562415 R42 Diplopia 02959471 H53.2 Hypothyroidism 78968164 E03.9 Hyperglycemia 26661006 R 73.9 [id number] Tuan Morrison MD Main Office [address] [place] [address] 50179-844 3 11/15/2018 16:58:32 11/15/2018 18:11:59 Cough 74354901 R05 Palpitations 47725539 R0 0.2 Hypothyroidism 96189201 E03.9 [id number] Tuan Morrison MD Main Office [address] [place] [address] 53577-185 3 03/13/2019 16:10:28 03/13/2019 17:47:48 Hypothyroidism 73710013 E03.9 Coronary arteriosclerosis 55001250 I25.10 Talipes planus 28460311 M21.40 Acquired genu varum 6492 5008 M21.169 Acquired p ronated forefoot 435296342 M21.6X9 [id number] Tuan Morrison MD Main Office [address] [place] [address] 25701-604 3 04/26/2019 12:15:59 04/26/2019 14:06:37 Bronchitis 88713421 J40 Acute sinusitis 04597545 J01.90 [id number] Tuan Morrison MD Main Office [address] [place] [address] 35713-205 3 05/22/2019 17:31:24 05/22/2019 18:51:33 Bronchitis 75603979 J40 Right uppe r quadrant pain 349089033 R10.11 Hyperglycemia 93980824 R 73.9 [id number] Tuan Morrison MD Main Office [address] [place] [address] 61333-011 3 11/06/2019 14:27:03 11/06/2019 16:02:02 Hyperglycemia 24987976 R73.9 Hypothyroidism 97852872 E03.9 Coronary arteriosclerosis 77689209 I25.10 Talipes planus 45569212 M21.40 Acquired genu varum 6492 5008 M21.169 Acquired p ronated forefoot 384793287 M21.6X9 [id number] Tuan Morrison MD Main Office [address] [place] [address] 98036-307 3 12/24/2019 18:05:24 12/24/2019 19:17:49 Diarrhea 05875897 R19.7 Abdominal pain 29710139 R10.9 [id number] Tuan Morrison MD Main Office [address] [place] [address] 72273-536 3 02/14/2020 14:32:45 02/14/2020 16:13:03 Acquired genu valgum 38222312 M21.069 Talipes planus 87863297 M21.40 Low back pain 157592719 M54.5 Hip pain 73074383 M25.55 9 Knee pain 78696195 M25.5 69 [id number] Tuan Morrison MD Main Office [address] [place] [address] 89661-440 3 05/13/2020 14:34:07 05/13/2020 15:52:35 Acquired genu valgum 08583531 M21.069 Talipes planus 97442660 M21.40 Low back pain 147082314 M54.5 Hip pain 02757444 M25.55 9 Knee pain 24442870 M25.5 69 BILATERAL Diplopia 52234718 H53.2 Bleeding from nose 77183 6005 R04.0 Nausea 112218311 R11.0 [id number] Tuan Morrison MD Main Office [address] [place], [place] [address] 3 08/12/2020 14:03:41 08/12/2020 15:25:39 Tinea pedis 0676503 B35.3 Acquired genu valgum 520 75763 M21.069 Talipes planus 69529977 M21.40 Low back pain 980526514 M54.5 Hip pain 36457082 M25.55 9 Knee pain 97388078 M25.5 69 BILATERAL Diplopia 53693118 H53.2 Bleeding from nose 16391 6005 R04.0 Nausea 329661920 R11.0 History of polyp of colon 360215756 Z86.010 [id number] Tuan Morrison MD Main Office [address] [place] [address] 3 09/10/2020 18:37:16 09/10/2020 19:33:10 Acquired genu valgum 65577176 M21.069 Talipes planus 04214445 M21.40 Low back pain 775798112 M54.5 Hip pain 05962190 M25.55 9 Knee pain 94064476 M25.5 69 BILATERAL Diplopia 12830674 H53.2 Bleeding from nose 34052 6005 R04.0 Nausea 533281796 R11.0 History of polyp of colon 383667166 Z86.010 [id number] Tuan Morrison MD Main Office [address] [place] [address] 3 10/02/2020 18:40:26 10/02/2020 20:04:15 Irritable bowel syndrome with diarrhea 378246782 K58.0 Acquired genu valgum 520 61785 M21.069 Talipes planus 78629872 M21.40 Low back pain 860210647 M54.5 Hip pain 91163944 M25.55 9 Knee pain 77981415 M25.5 69 BILATERAL Diplopia 50511374 H53.2 Bleeding from nose 64626 6005 R04.0 Nausea 513443731 R11.0 History of polyp of colon 127979393 Z86.010 [id number] Tuan Morrison MD Main Office [address] [place] [address] 3 11/11/2020 15:02:25 11/11/2020 16:14:51 Irritable bowel syndrome with diarrhea 821739749 K58.0 Acquired genu valgum 520 14178 M21.069 Talipes planus 08385366 M21.40 Low back pain 017575098 M54.5 Hip pain 09205971 M25.55 9 Knee pain 41036949 M25.5 69 BILATERAL Diplopia 82786381 H53.2 Bleeding from nose 44645 6005 R04.0 Nausea 090957693 R11.0 History of polyp of colon 634408099 Z86.010 [id number] Tuan Morrison MD Main Office [address] [place] [address] 64970-926 3 12/08/2020 16:25:49 12/08/2020 17:56:11 Irritable bowel syndrome 02220965 K58.9 Heartburn 71501441 R12 Diarrhea 43655428 R19.7 Bacterial infection caused by Proteus mirabilis 57538682 A49.8 [id number] Tuan Morrison MD Main Office [address] [place] [address] 85034-017 3 12/30/2020 09:50:00 12/30/2020 11:13:09 Diverticulitis 723953249 K57.92 Bacterial overgrowth syndrome 68311348 A04.9 [id number] Tuan Morrison MD Main Office [address] [place] [address] 29387-186 3 01/09/2021 10:35:48 01/09/2021 11:34:13 Diverticulitis 574313552 K57.92 resolved Bacterial overgrowth syndrome 32781811 A04.9 Irritable bowel syndrome 59363769 K58.9 Heartburn 59361850 R12 Diarrhea 51101676 R19.7 Bacterial infection caused by Proteus mirabilis 19907751 A49.8 [id number] Tuan Morrison MD Main Office [address] [place] [address] 04789-347 3 03/10/2021 14:29:39 03/10/2021 16:01:26 Diverticulitis 284787685 K57.92 resolved Bacterial overgrowth syndrome 66558100 A04.9 Irritable bowel syndrome 15695927 K58.9 Heartburn 74324130 R12 Diarrhea 42483660 R19.7 Bacterial infection caused by Proteus mirabilis 97315878 A49.8 [id number] Tuan Morrison MD Main Office [address] [place] [address] 85854-618 3 05/04/2021 11:31:49 05/04/2021 12:43:05 Upper respiratory infection 07492203 J06.9 Persistent cough 3174366 02 R05.3 Bronchitis 15530739 J40 [id number] Tuan Morrison MD Main Office [address] [place] [address] 76184-637 3 06/25/2021 14:04:58 06/25/2021 15:43:38 Coronary arteriosclerosis 76267899 I25.10 Hyperlipidemia 50803590 E78.5 Bronchitis 65483790 J40 Hypothyroidism 93265903 E03.9 Irritable bowel syndrome with diarrhea 423170110 K58.0 [id number] Tuan Morrison MD Main Office [address] [place] [address] 3 09/09/2021 15:17:58 09/09/2021 16:45:13 Bronchitis 72899802 J40 [id number] Tuan Morrison MD Main Office [address] [place] [address] 3 10/28/2021 16:23:46 10/28/2021 18:20:11 Diarrhea 39150413 R19.7 Food poisoning 37704071 A05.9 [id number] Tuan Morrison MD Main Office [address] [place] [address] 01973-004 3 12/24/2021 17:07:25 12/24/2021 18:49:58 Hyperhomocysteinemia 359897460 E72.11 Coronary arteriosclerosis 01609565 I25.10 Diabetes mellitus 106087 09 E11.9 Hyperglycemia 55654456 R 73.9 [id number] Tuan Morrison MD Main Office [address] [place] [address] 15060-066 3 02/08/2022 14:06:49 02/08/2022 15:51:35 Postviral fatigue syndrome 85120888 G93.3 Fatigue 94598568 R53.83 Cataract 575985792 H26.9 [id number] Tuan Morrison MD Main Office [address] [place] [address] [phone] 3 03/25/2022 17:07:38 03/25/2022 18:40:23 Vertigo 722091010 R42 Postviral fatigue syndrome 21921925 G93.31 Fatigue 44592149 R53.83 Cataract 401000072 H26.9 Hyperhomocysteinemia 419 979875 E72.11 Coronary arteriosclerosis 42971518 I25.10 Diabetes mellitus 110938 09 E11.9 Hyperglycemia 29797957 R 73.9 [id number] Tuan Morrison MD Main Office [address] [place] [address] 73247-674 3 05/27/2022 17:02:31 05/27/2022 18:15:06 Diplopia 02163903 H53.2 Osteoarthr itis of knee 523827036 M17.9 Acquired genu varum 6492 5008 M21.169 Talipes planus 93715862 M21.40 Vertigo 520766602 R42 Postviral fatigue syndrome 47166453 G93.31 Fatigue 40269805 R53.83 Cataract 752213061 H26.9 Hyperhomocysteinemia 419 504098 E72.11 Coronary arteriosclerosis 57782921 I25.10 Diabetes mellitus 781941 09 E11.9 Hyperglycemia 41890655 R 73.9 [id number] Tuan Morrison MD Main Office [address] [place] [address] 89692-052 3 08/31/2022 10:24:49 08/31/2022 11:59:18 Acquired genu valgum 04221786 M21.069 Acquired p ronated forefoot 044331740 M21.6X9 Coronary arteriosclerosis 50576288 I25.10 Diabetes mellitus 489477 09 E11.9 Hypothyroidism 39551265 E03.9 Irritable bowel syndrome 05921677 K58.9 Diplopia 05218329 H53.2 [id number] Tuan Morrison MD Main Office [address] [place] [address] 87731-341 3 11/03/2022 10:27:28 11/03/2022 11:45:55 Acute sinusitis 00632138 J01.90 Osteoarthr itis of knee 116754092 M17.9 [id number] Tuan Morrison MD Main Office [address] [place] [address] 75150-487 3 12/24/2022 13:59:46 12/24/2022 15:29:08 Mammographic mass of left breast 0644264968 1902027 R92.8 Hypothyroidism 03375699 E03.9 Hyperlipidemia 23674242 E78.5 Osteoarthr itis of left knee joint 9583713743 00570 M17.12 [id number] Tuan Morrison MD Main Office [address] [place] [address] 67209-217 3 01/05/2023 17:09:05 01/05/2023 18:51:59 Thrombophlebitis of superficial veins of lower extremity 16277095 I80.291 [id number] Tuan Morrison MD Main Office [address] [place] [address] 43742-874 3 02/10/2023 13:59:10 02/10/2023 15:50:21 Urinary tract infectious disease 91754183 N39.0 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 2063054816 950781 C50.912 Renal insufficiency 7231 04774 N28.9 [id number] Tuan Morrison MD Main Office [address] [place] [address] 81696-900 3 03/08/2023 10:08:40 03/08/2023 11:25:00 Contusion of soft palate 271588815 S00.532A [id number] Tuan Morrison MD Main Office [address] [place] [address] 01923-719 3 03/31/2023 10:56:55 03/31/2023 13:24:11 Fatigue 41660133 R53.83 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 1385135150 750051 C50.912 Renal insufficiency 7231 92448 N28.9 Hyperglycemia 84192598 R 73.9 Idiopathic peripheral neuropathy 54731343 G60.9 Acute sinusitis 72899709 J01.90 [id number] Tuan Morrison MD Main Office [address] [place] [address] 98697-988 3 05/20/2023 16:13:33 05/20/2023 17:49:33 Fatigue 92886271 R53.83 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 3581340301 990439 C50.912 Renal insufficiency 7231 34957 N28.9 Hyperglycemia 46028308 R 73.9 Idiopathic peripheral neuropathy 66385969 G60.9 Abscess of breast 767905 03 N61.1 Menopause present 408715 006 N95.1 [id number] Tuan Morrison MD Main Office [address] [place] [address] 91394-873 3 06/27/2023 16:08:59 06/27/2023 18:49:44 Clostridium difficile colitis 062721557 A04.72 Malignant tumor of breast 873100578 C50.012 Acquired genu valgum 520 08508 M21.069 Coronary arteriosclerosis 27156785 I25.10 Hypothyroidism 25992205 E03.9 [id number] Tuan Morrison MD Main Office [address] [place] [address] 58254-105 3 09/02/2023 13:29:41 09/02/2023 14:57:24 Rhinitis 44682922 J00 Clostridiu m difficile colitis 662972437 A04.72 Malignant tumor of breast 975613727 C50.012 Acquired genu valgum 520 70360 M21.069 Coronary arteriosclerosis 49654464 I25.10 Hypothyroidism 44335091 E03.9 [id number] Tuan Morrison MD Main Office [address] [place] [address] 09982-236 3 12/02/2023 12:55:37 12/02/2023 14:01:10 Rhinitis 38221871 J00 Clostridiu m difficile colitis 348958484 A04.72 Malignant tumor of breast 507447759 C50.012 Acquired genu valgum 520 63600 M21.069 Coronary arteriosclerosis 80182214 I25.10 Hypothyroidism 74681709 E03.9 [id number] Tuan Morrison MD Main Office [address] [place] [address] 31556-387 3 12/16/2023 13:47:06 12/16/2023 15:02:03 Gastroesophageal reflux disease 734329013 K21.9 Cervical spondylosis 387 576897 M47.812 Malignant tumor of breast 022558147 C50.012 [id number] Tuan Morrison MD Main Office [address] [place] [address] 98619-323 3 12/20/2023 16:24:49 12/20/2023 18:09:06 Gastric ulcer 017180096 K25.3 [id number] Tuan Morrisno MD Main Office [address] [place] [address] 02608-517 3 01/26/2024 14:46:46 01/26/2024 16:33:23 COVID-19 005653605 U07.1 Gastroesop hageal reflux disease 194009888 K21.9 Hypothyroidism 53307315 E03.9 Acquired genu valgum 520 32651 M21.069 [id number] Tuan Morrison MD Main Office [address] [place] [address] 95677-015 3 02/23/2024 19:12:36 02/23/2024 20:45:02 Gastritis 9761871 K29.70 Bacterial overgrowth syndrome 39392709 A04.9 Coronary arteriosclerosis 69198929 I25.10 Hypothyroidism 92529416 E03.9 Malignant tumor of breast 608995703 C50.012 Osteopenia 730124289 M85 .80 [id number] Tuan Morrison MD Main Office [address] [place] [address] 01421-060 3 05/01/2024 13:31:23 05/01/2024 15:15:15 Gastroesophageal reflux disease without esophagitis 917781143 K21.9 Hiatal hernia 52222980 K 44.9 Osteoarthr itis of knee 954612434 M17.9 Menopausal flushing 1983 10706 N95.1 Varicose v eins of bilateral lower limbs 5669384721 0992872 I83.93 [id number] Tuan Morrison MD Main Office [address] [place] [address] 51929-129 3 05/31/2024 16:26:55 05/31/2024 18:08:45 Ulceration of vulva 61845682 N76.6 Health Concerns Section Related Observation LastModified by Organization Detai ls LastModified Time None Recorded Concern Status LastModified by Organization Details LastModified Time None Recorded Advance Directives Directive None Recorded Payers Encounter Date Sequence Insurance Name Policy Number Policy Nunes Covered Member ID Nunes Member ID Guarantor Name 12/20/2023 2 BCBS-ID BLUE CROSS (MEDICARE SUPPLEMENT) [id number] Brigid Baker [id number] Brigid Baker 12/20/2023 1 MEDICARE [place]: [place] Brigid Stone Shugert [id number] Brigid Patricia Shugert 01/26/2024 2 BCBS-ID BLUE CROSS (MEDICARE SUPPLEMENT) [id number] Brigid Stone Shugert [id number] Brigid Patricia Shugert 01/26/2024 1 MED[place]: [place] Brigid Stone Shugert [id number] Brigid Patricia Shugert 02/23/2024 2 BCBS-ID BLUE CROSS (MEDICARE SUPPLEMENT) [id number] Brigid Stone Shugert [id number] Brigid Patricia Shugert 02/23/2024 1 MEDIC[place]: [place] Brigid Stone Shugert [id number] Brigid Patricia Shugert 05/01/2024 1 *SELF PAY* Li nda Belem Shugert 05/01/2024 2 *SELF PAY* Li nda Belem Shugert 05/31/2024 1 *SELF PAY* Li nda Belem Shugert 05/31/2024 2 *SELF PAY* Li nda Belem Shugert Notes Date Note Type Note Provider Name and Address Organization Details Recorded Time 12/20/2023 text/html ER 12/20/2023 with escalating upper abdominal pain though to be gastritis vs. gastric ulcer. Did not take the pantoprazole but Pepcid 20 qhs and carafate 1g qid. Tuan Morrison MD [address] [place], [address], [facility] 12/20/2023 18:07:43 01/26/2024 text/html Had Covid diarrhea 01/15/2024 - Urgent care 01/17/2024 diagnosed with Covid. Took full 5-day course. The side effects were cough, body aches, joint stiffness, loss of appetite, nausea, constipation, ear fluid and congestion. Is now scheduled to EGD with Dr. Pina at [facility] 02/14/24 - Doubted diagnosis of peptic ulcer. Last EGD about 15 years ago. Now flutter from stomach going into throat. ER 12/20/2023 with escalating upper abdominal pain though to be gastritis vs. gastric ulcer. Did not take the pantoprazole but Pepcid 20 qhs and carafate 1g qid. Tuan Morrison MD [address] [place], [address], [facility] 01/26/2024 16:30:05 02/23/2024 text/html constipation 3 d ays then [place] 4-5 stools.Intermittent nauseaFood sticks in throat.Less appetite, and reaches for fullness more quickly. Though has not lost weight.Lot of belching and gasMild epigastric pain no longer extends to the back.Less energetic than usual.She had EGD on 02/14/2024. No ulcer or tumor was seen. There was a indeterminate finding on that biopsy regarding H. pylori. There was chronic inflammation with eosinophils, plasma cells, focal acute inflammation intestinal metal metaplasia and minimal lamina propria fibrosis and regenerative epithelial changes.Breast cancer JAMEL.Will not do the anastrozole because of her advanced age and the small gain in survival likelihood.Plans to do a twice yearly Zometa infusion which is zoledronic acid. This is for osteopenia. Tuan Morrison MD [address] [place], [address], [facility] 02/23/2024 20:42:57 05/01/2024 text/html Follow up - Planning L total knee in the spring with Isauro Denise.RefluxFulln ess early.Known HH. heartburn. Fullness and low appetite. Perspiration of upper torso, neck and wrists at night. Sometimes she feels hot with this. Disorder like menopause.- feels like menopause. Had TSA BSO 1989. Tuan Morrison MD [address] [place], [address], [facility] 05/01/2024 15:07:08 05/31/2024 text/html 2 days: sore on vulva close to rectumUsed wet compress.burning stinging pain Tuan Morrison MD [address] [place], [address], [facility] 05/31/2024 18:01:51 OBGyn Episode No OBEpisode recorded.
--- OUTSIDE RECORDS SUMMARY | 2024-06-19 23:38 | XMS_ITS | Encounter Summary ---
Author Organization [facility] Healthcare Address [address] [place] [address] Care Team Providers Care Funeral Car Chauffeur Name Role Phone Unavailable Primary Care Provider Unavailabl e Reason for Visit * Diagnostic Imaging (Routine) - Closed Specialty Diagnoses / Procedures Referred By Contac t Referred To Contact Procedures Breast Imaging [place] [address] [place] [address] Phone: tel: fax: Referral ID Status Reason Start Date Expiration Date Visits Re quested Visits Authorized [id number] Closed 05/12/2023 06/10/2024 1 1 Encounter Details Date Type Department Care Team (Late st Contact Info) Description 07/29/2016 Hospital Encounter [facility] [address] [place] [address] Social History Tobacco Use Types Packs/Day Years [...] on file Legal Sex Female 1:53 AM MANUFACTURING COST ESTIMATOR Gender Identity Not on file Sexual Orientation [...] CDT) Impressions [facility] - 05/12/2023 1:55 PM MANUFACTURING COST ESTIMATOR These images are for Reference purposes only and have not been reviewed by [facility]. ??There will be no report generated by a [facility] Radiologist. Narrative [facility] - 05/12/2023 1:55 PM MANUFACTURING COST ESTIMATOR EXAMINATION: ??Images For Reference Purposes Only us [...]
--- OUTSIDE RECORDS SUMMARY | 2024-06-19 23:38 | XMS_ITS | Clinical Summary ---
Author Organization [employer] [facility] [place] Address [address] [place] [address] Phone Care Team Providers Care Director Of Learning Name Role Phone Tuan Morrison MD Primary Care Provider +1- [phone] Allergies Active Allergy Reactions Criticality Noted Date Comments Erythromycin Hives High 02/11/2010 Levofloxacin Muscle Pain Low 01/05/2012 Omeprazole Palpitations High 01/23/2016 Penicillins Anaphylaxis High 02/11/2010 Sinutab Rash Low 02/11/2010 Sulfa (Sulfonamide Antibiotics) Diarrhea,Nausea and Vomiting Low 02/28/2023 Medications levothyroxine (SYNTHROID) 75 mcg Oral tablet Take 75 mcg by mouth daily. Active LACTOBAC/BIFIDOB AC/GLOB MN CON (ULTRA EFREM PLUS ORAL) Take by mouth. Active CHOLECALCIFEROL, VITAMIN D3, (VITAMIN D3 ORAL) Take 5,000 Units by mouth daily. Active FLAXSEED OIL (OMEGA 3 ORAL) Take by mouth daily 3 CAPS DAILY . Active berberine/herbal complex no.18 (BERBERINE-HERBA L COMB NO.18 ORAL) 2 times daily. Active famotidine (Pepcid) 20 mg tablet 20 mg 1 time daily as needed. 12/20/2022 Active anastrozole (ARIMIDEX) 1 mg tablet Take 1 Tablet (1 mg) by mouth daily. 30 Tablet 11 04/01/2023 Active HYDROcodone-acet aminophen (NORCO) 5-325 mg tabletIndication s:Malignant neoplasm of left female breast, unspecified estrogen receptor status, unspecified site of breast (CMS/HCC) Take 1 Tablet by mouth every 4 hours as needed for Pain, Moderate. Max Daily Amount: 6 Tablets 10 Tablet 04/29/2023 Active Active Problems Patient Care Coordination No te Formatting of this note migh t be different from the original. Primary Care: Tuan Morrison MD Referring Provider: Tuan Morrison [address] [place] [address] Other: Problem Noted Date Diagnosed Date Multiple drug allergies 05/12/2023 Cellulitis of left breast 05/08/2023 Malignant neoplasm of upper- outer quadrant of left breast in female, estrogen receptor positive 04/01/2023 JOHN (acute kidney injury) 02/04/2023 UTI (urinary tract infection) 02/04/2023 Gastroesophageal reflux disease 02/04/2023 Diabetes mellitus 02/04/2023 Raynaud's phenomenon 02/04/2023 Lightheadedness 02/04/2023 Lobular breast cancer, left 01/31/2023 Overview (02/10/2023): Stage: Clinical T1N0 Date of diagnosis: 01/20/2023 Diagnosis: LEFT ILC ER(+) MN(+) Her 2(-) Surgeon: Amaris Surgery: Medical Oncologist: Chemotherapy: Radiation Oncologist: Radiation: Hormonal therapy: Geneitcs: MyRisk 2022 (-) Irritable bowel syndrome with diarrhea Hyperlipidemia 06/30/2016 Chronic kidney disease, unspecified 02/13/2016 Obstructive sleep apnea (adult) (pediatric) 01/16 Arteriosclerosis of coronary artery 01/23/2016 Breast pain in female 07/19/2014 Knee pain 04/02/2011 Well woman exam with routine gynecological exam 03/06/2010 Asthma Cyst, thyroid Invasive ductal carcinoma of breast LEFT Overview (02/28/2023): PATHOLOGY: Date: 02/27/10 lumpectomy with SLN, 02/02 Bx Breast: Left Cell type: IDC, >1 cm ER: (-) neg MN: (-) neg Her2 nina: (not) amplified Grade: II, intermed grade Lymph node status:(-) 05/16 LVI: (not) present Staging: T1c N0 Mx Stage: I Treatment: TC X 4 C1 04/08/10- mouthsores and bronchitis C2 04/29/10 S/p XRT sk 2022 (-) Encounters Date Type Department Care Team Description 06/06/2024 External Device Data STL ABSTRACTION Provider, Abstract 06/06/2024 External Device Data STL ABSTRACTION Provider, Abstract from Last 3 Months Family History Medical History Relation Name Comments Cancer Brother Prostate Cancer Brother Heart Disease Father Lung Cancer Maternal Grandmother Breast Cancer Mother age 70's Heart Disease Mother Colon Cancer Neg Hx Ovarian Cancer Neg Hx Relation Name Status Comments Brother Father Maternal Grandmother Mother Social History Tobacco Use Types Packs/Day Years Used Date Smoking Tobacco: Never Smokeless Tobacco: Never Tobacco Cessation:Counseling Given: Not Answered Alcohol Use Standard Drinks/Week Comments Yes 0 (1 standard drink = 0.6 oz pur e alcohol) 1-2 per week wide or liquer Feeling Safe Answer Date Recorded Are you in a relationship wi th someone who hurts you emotionally and/or physically? No 05/09/2023 Food Insecurity Answer Date Recorded Social/Environmental Concerns No concerns Transportation Needs Answer Date Record ed Social/Environmental Concerns No concerns Housing Stability Answer Date Recorded Social/Environmental Concerns No concerns Utility Needs Answer Date Recorded Social/Environmental Concerns No concerns Comments No Sex and Gender Information Value Date Recorded Sex Assigned at Not on file Legal Sex Female 2:58 AM DIRECTOR OF OUTSIDE SALES Gender Identity Not on file Sexual Orientation Not on file Occupation Industry Job Start Date Job End Date Not on file Not on file Not on file Not on file Not on file Not on file Not on file Not on file Last Filed Vital Signs Vital Sign Reading Time Taken Comments Blood Pressure 149/79 06/07/2023 11:58 AM DIRECTOR OF OUTSIDE SALES Pulse 64 06/07/2023 11:58 AM DIRECTOR OF OUTSIDE SALES Temperature 36.3 ??C (97.3 ??F) 05/11/2023 12:[address] Respiratory Rate 18 05/11/2023 12:23 PM DIRECTOR OF OUTSIDE SALES Oxygen Saturation 94% 05/19/2023 9:42 AM DIRECTOR OF OUTSIDE SALES Inhaled Oxygen Concentration - - Weight 85.3 kg (188 lb 0.8 oz) 06/07/2023 11:58 AM DIRECTOR OF OUTSIDE SALES Height 170.2 cm (5' 7 ) 06/07/2023 11:58 AM DIRECTOR OF OUTSIDE SALES Body Mass Index 29.45 06/07/2023 11:58 AM DIRECTOR OF OUTSIDE SALES Plan of Treatment Health Maintenance Due Date Last Done Comments DIABETES ANNUAL FOOT EXAM 10/29/1958 DIABETES ANNUAL RETINAL EXAM 10/29/1957 DIABETES MICROALBUMIN ANNUAL SCREEN 10/29/1957 LDL CHOLESTEROL ANNUAL 10/29/1957 DTAP/TDAP/TD VACCINES (1 - Tdap) 10/29/1958 ZOSTER VACCINE (1 of 2) 10/29/1989 RSV VACCINE (60+ or ) (1 - 1-dose 75+ series) 10/29/2014 PNEUMOCOCCAL VACCINE 65+ YEA RS (2 of 2 - PPSV23) 03/15/2016 01/19/2016 DIABETES HBA1C Q 6 MONTHS 09/29/20232022, 08/31/2022, 12/25/2021, Additional history exists INFLUENZA VACCINE (#1) 2023 04/29/2022 COVID-19 Vaccine (4 - 2023-2 5 season) 2024 12/25/2021, 08/02/2020, 07/12/2020 COLORECTAL SCREENING Discontinued 11/05/2020, 11/05/2020, 07/05/2017 Colorectal Cancer Screening Discontinued OSTEOPOROSIS SCREENING Completed 06/17/2023, 2014 FIT-DNA Q 3 years Discontinued FIT/FOBT Q 1 year Discontinued Flex Sig/CT Colonography Q 5 years Discontinued Medical Devices Implanted Type Area Research And Development Chemist Device Identifier Shelf Expiration Date Model / Serial / Lot Director Of Alumni Relations Clip Surgiclip Ii Myles 9.75in [id number] - [id number] Implanted:Qty: 1 on 02/28/2023 by Indiana Glez MD at [facility] Clip Left: Axilla [employer] - COVIDIEN 09/13/2027 [id number] / / [id number] Cataract Extraction With Iol-2009; Right Eye Right Eye Cataract Excision With Iol-01/2022 Insurance MEDICARE PART A AND B BCBS SUPP RX [facility] Medicare Part D RX [employer] RX [employer] PLANS (INTERNAL) [facility] Advance Directives For more information, please contact: [phone] * Full Code (Latest Code Status on File) Date Activated Date Inactivated Comments 05/08/2023 11:33 PM 05/11/2023 5:29 PM * Full Code Date Activated Date Inactivated Comments 02/04/2023 10:20 AM 02/04/2023 3:13 PM * Full Code Date Activated Date Inactivated Comments 02/04/2023 5:40 AM 02/04/2023 10:20 AM * Full Code Date Activated Date Inactivated Comments 02/27/2010 7:44 AM 02/27/2010 3:35 PM * Full Code Date Activated Date Inactivated Comments 02/27/2010 7:44 AM 02/27/2010 7:44 AM Care Teams Director Of Learning Relationship Specialty Start Date End Date Tuan Morrison MD [address] [place] [address] PCP - General 03/25/15
--- OUTSIDE RECORDS SUMMARY | 2024-06-19 23:38 | XMS_ITS | Clinical Summary ---
Author Organization [facility] [address] Address [address] [place] [address] Care Team Providers Care Can Marker Name Role Phone Tuan Morrison MD Primary Care Provider +1- [phone] Allergies Active Allergy Reactions Criticality Noted Date [...] 1 tablet (75 mcg total) by mouth inclusion special education teacher before breakfast Active vitamin D3-vitamin K2 25 mcg (1,000 unit)-90 mcg tablet,disinte grating Take by mouth Active magnesium citrate 100 mg tablet Take 100 mg by mouth daily after lunch Active vit D3-vit T-kzoentctu-ch ps [phone] dsub-mzi-rs-mg tablet Take by mouth Active cholecalcifero l [...] Take by mouth as needed Med Name: Shirleycense Active docusate sodium (COLACE) 100 mg capsuleIndicat ions:constipat ion Take 1 capsule (100 mg total) by mouth 2 (two) times a day with a glass of water 60 capsule Active Additional Information Patient not taking.Reported on [...] from 02/28/2023:Stage IA(pT2, pN0(sn), cM0, G2, ER+, FL+, HER2-) - Unsigned Primary osteoarthritis of left knee 10/27/2022 Encounters Date Type Department Care Team Description 03/22/2024 11:45 AM LINE PILOT Office Visit [facility] [address] [place] [address] Ismael Tejeda MD Malignant neoplasm of left breast in female, estrogen receptor positive, unspecified site of breast (HCC) from Last 3 Months Immunizations Name Administration Dates Next Due Influenza, Quadrivalent, Hig h Dose, Preservative Free, Intrr 04/29/2022 Influenza, Unspecified 04/29/2022 Pneumococcal Conjugate PCV 13 01/19/2016 Surgical History Surgery Date Site/Laterality Comments HYSTERECTOMY THYROID SURGERY BREAST BIOPSY Bilateral both benign ORAL SURGERY N/A HERNIA REPAIR N/A VARICOSE VEIN SURGERY N/A veins stripped GALLBLADDER SURGERY N/A CATARACT EXTRACTION N/A surgery BREAST LUMPECTOMY COLONOSCOPY 05/16/2020 - 05/15/2021 BREAST MASS EXCISION 04/15/2023 - 05/15/2023 Left Medical History Medical History Date Comments Heart attack (HCC) Thyroid disease Breast cancer (HCC) Family History Medical History Relation Name Comments Prostate cancer Brother Stroke Father Breast cancer Mother Heart failure Mother Anesthesia problems Neg Hx Malig Hyperthermia Neg Hx Pseudochol deficiency Neg Hx Relation Name Status Comments Brother Father Mother Social History Tobacco Use Types Packs/Day [...] on file Legal Sex Female 1:53 AM LINE PILOT Gender Identity Not on file Sexual Orientation Not on file Obstetrics History Last Filed Vital Signs Vital Sign Reading Time Taken Comments Blood Pressure 145/80 03/22/2024 11:47 AM LINE PILOT Pulse 65 03/22/2024 11:47 AM LINE PILOT Temperature 36.1 ??C (97 ??F) 03/22/2024 11:47 AM LINE PILOT Respiratory Rate 18 12/15/2023 11:46 AM CDT Oxygen Saturation 96% 03/22/2024 11:47 AM LINE PILOT Inhaled Oxygen Concentration - - Weight 85.3 kg (188 lb) 03/22/2024 11:47 AM LINE PILOT Height 165.1 cm (5' 5 ) 03/22/2024 11:47 AM LINE PILOT Body Mass Index 31.28 03/22/2024 11:47 AM LINE PILOT Plan of Treatment Health Maintenance Due Date Last Done Comments Depression Screening 1940 DTaP/Tdap/Td Vaccine (1 - Tdap) 10/29/1950 Hepatitis B Screening 10/29/1957 Zoster Vaccine (1 of 2) 10/29/1989 Well Visit 65+ 10/29/2004 Pneumococcal vaccine 65+ (2 of 2 - PPSV23 or PCV20) 03/15/2016 01/19/2016 Osteoporosis Screening-Bone Density Scan 03/18/2017 03/18/2015 Covid-19 Vaccine (2023-2 5 season) 2024 04/01/2022, 12/25/2021, 05/21/2021, Additional history exists Influenza Vaccine (#1) 2024 04/29/2022, 2021 Fall Risk Assessment 08/07/2024 08/08/2023 Insurance MEDICARE [facility] MEDICARE [facility] MEDICARE [facility] [employer] Advance Directives For more information, please contact: [phone] Documents on File Type Date Recorded Patient 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
--- OUTSIDE RECORDS SUMMARY | 2024-06-19 23:38 | XMS_ITS | Data Portability ---
Author Organization [facility], Main Office Address [address] [facility] [address] [place] [address] Assessment No assessment recorded. Plan of Treatment Reminders Order Date Submit Date Provider Last Modified By Organization Details Last Modified Time Details Appointments ESTABLISH ED PATIENT 15 2024 11:15A M Dr. Rabago Not available Not available Not available Lab None recorded. Referral None recorded. Procedures biopsy, skin (PROC) 2023 024 Not available 11/01/2023 13:22:46 Surgeries None recorded. Imaging None recorded. Medication Orders None recorded. Patient TargetsNo targets recorded. Patient Instructions Encounter Date Encounter Id Patient Instructions Last Modified By Organization Details Last Modified Time 11/01/2023 [id number] Informed consent . betadine prep. 1% lidocaine with epinephrine. Shave biopsy from: r posterior thigh black macule, r/o nevus, r/o melanoma AlCL3 hemostasis. Aquaphor, bandage and wound care given. Will call pt with path. Not available 11/01/2023 13:21:50 Reason for Referral None Reported. 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 2 11:33:37 Seborrheic keratosis of scalp 113711233 Active 2021 Guru Rabago MD [address] [facility] [address], [place], [address], [facility] 2 11:33:42 Seborrheic keratosis 144620531 Active 2021 Guru Rabago MD [address] [facility] [address], [place], [address], [facility] 2 11:34:07 Melanocytic nevus of trunk 822739811 Active 2021 Guru Rabago MD [address] [facility] [address], [place], [address], [facility] 2 11:36:14 Neoplasm of uncertain behavior of skin 57276658 Active 2023 Guru Rabago MD [address] [facility] [address], [place], [address], [facility] 4 13:20:52 Verruca vulgaris 38075879 Active 2018 Guru Rabago MD [address] [facility] [address], [place], [address], [facility] 9 12:33:58 Chronic effect of ultraviolet radiation on normal skin 089491586 Active 2018 Guru Rabago MD [address] [facility] [address], [place], [address], [facility] 9 12:33:58 Keratosis 117677666 Active 2018 Guru Rabago MD [address] [facility] [address], [place], [address], [facility] 9 12:33:59 Venous stasis 92637525 Active 2018 Guru Rabago MD [address] [facility] [address], [place], [address], [facility] 9 12:34:00 Filiform wart 443837837 Active 2018 Guru Rabago MD [address] [facility] [address], [place], [address], [facility] 9 13:22:19 Problem Notes None recorded. Medical Equipment None Reported. Allergies Allergen ID Allergen Name Allergen Category Reaction Reaction Severity Criticality Documentation Date Start Date Code Code System Note Provider Name and Address Organization Details Recorded Time 4951 Product containin g penicilli n and antibioti c (product) medicatio n Not available Not available Not available 12/29/2021 98210 05 SNOMED Renea LUCERO [facility] 2 11:17:48 4952 erythromy imer medicatio n Not available Not available Not available 12/29/2021 4053 RxNorm Renea LUCERO [facility] 2 11:18:01 7322 Levaquin medicatio n Not available Not available Not available 09/28/2023 12016 2 RxNorm Renea LUCERO [facility] 4 12:13:16 Medications Name Sig Start Date Stop Date Status Note LastModified by Organization Details LastModified Time anastrozole 1 mg tablet TAKE 1 TABLET BY MOUTH EVERY DAY active Not Available Not Available No t Available doxycycline hyclate 100 mg capsule TAKE 1 CAPSULE BY MOUTH TWICE A DAY active Not Available Not Available No t Available clindamycin HCl 300 mg capsule TAKE 1 CAPSULE BY MOUTH 4 TIMES DAILY FOR 7 DAYS. active Not Available Not Available No t Available ciprofloxac in 750 mg tablet active Not Available Not Available Not Available benzonatate 200 mg capsule TAKE 1 CAPSULE (ORAL) 3 TIMES PER DAY NEEDED active Not Available Not Available No t Available hydrocodone 5 mg-acetamin ophen 325 mg tablet TAKE 1 TABLET BY MOUTH EVERY 4 HOURS NEEDED FOR MODERATE PAIN. MAX DAILY AMOUNT: 6 TABLETS active Not Available Not Available No t Available meloxicam 15 mg tablet TAKE 1 TABLET BY MOUTH EVERY DAY active Not Available Not Available No t Available prednisone 20 mg tablet TAKE 2 TABLETS BY ORAL ROUTE ONCE DAILY FOR 5 DAYS TAKE WITH FOOD active Not Available Not Available No t Available nystatin 500,000 unit tablet 12/22 completed Not Available Not Available Not Available diphenoxyla te-atropine 2.5 mg-0.025 mg tablet TAKE 2 TABLETS 4 TIMES A DAY BY ORAL ROUTE NEEDED. active Not Available Not Available No t Available sulfamethox azole 800 mg-trimetho prim 160 mg tablet TAKE 1 TABLET BY MOUTH TWICE A DAY FOR 7 DAYS active Not Available Not Available No t Available doxycycline monohydrate 100 mg tablet TAKE 1 TABLET (100 MG) BY MOUTH 2 (TWO) TIMES A DAY FOR 10 DAYS active Not Available Not Available No t Available vancomycin 125 mg capsule TAKE 1 CAPSULE (125 MG TOTAL) BY MOUTH 2 (TWO) TIMES A DAY FOR 5 DAYS active Not Available Not Available No t Available ketorolac 0.5 % eye drops INSTIL 1 DROP INTO OPERATIVE EYE THREE TIMES A DAY 3 DAYS BEFORE SURGERY active Not Available Not Available No t Available oxycodone-a cetaminophe n 5 mg-325 mg tablet active Not Available Not Available No t Available prednisolon e acetate 1 % eye drops,suspe nsion INSTIL 1 DROP INTO OPERATIVE EYE 3 TIMES A DAY BEGIN THE DAY AFTER SURGERY active Not Available Not Available No t Available meclizine 25 mg tablet TAKE 1 TABLET (25 MG) BY MOUTH 3 TIMES A DAY NEEDED FOR DIZZINESS FOR UP TO 10 DAYS active Not Available Not Available No t Available benzonatate 100 mg capsule TAKE 1 CAPSULE, 3 TIMES A DAY NEEDED FOR 4 DAYS active Not Available Not Available No t Available cephalexin 500 mg capsule TAKE 1 CAPSULE BY MOUTH 4 TIMES DAILY FOR 7 DAYS. active Not Available Not Available No t Available oseltamivir 75 mg capsule active Not Available Not Available Not Available tobramycin 0.3 % eye drops INSTIL 1 DROP INTO INTO LEFT EYE 3 TIMES A DAY active Not Available Not Available No t Available Synthroid 75 mcg tablet TAKE 1 TABLET BY MOUTH EVERY DAY active Not Available Not Available No t Available ibuprofen 600 mg tablet active Not Available Not Available Not Available cefuroxime axetil 500 mg tablet active Not Available Not Available No t Available levofloxaci n 750 mg tablet TAKE 1 TABLET BY MOUTH EVERY DAY FOR 5 DAYS active Not Available Not Available No t Available methylpredn isolone 4 mg tablets in a dose pack TAKE 6 TABLETS ON DAY 1 DIRECTED ON PACKAGE AND DECREASE BY 1 TAB EACH DAY FOR A TOTAL OF 6 DAYS active Not Available Not Available No t Available albuterol sulfate HFA 90 mcg/actuati on aerosol inhaler INHALE 2 PUFFS BY MOUTH EVERY 4 HRS NEEDED FOR SHORTNESS OF BREATH OR WHEEZING active Not Available Not Available No t Available ipratropium bromide 42 mcg (0.06 %) nasal spray active Not Available Not Available Not Available ondansetron 4 mg disintegrat ing tablet TAKE 1 TABLET BY MOUTH EVERY 6 HOURS NEEDED FOR NAUSEA active Not Available Not Available No t Available doxycycline hyclate 100 mg tablet TAKE 1 TABLET BY MOUTH TWICE A DAY FOR 10 DAYS active Not Available Not Available No t Available ezetimibe 10 mg tablet active Not Available Not Available Not Available Suprep Bowel Prep Kit 17.5 gram-3.13 gram-1.6 gram oral solution 12/22 completed Not Available Not Available Not Available Eliquis 5 mg tablet TAKE 1 TABLET BY MOUTH EVERY DAY FOR 2 DAYS active Not Available Not Available No t Available ProAir RespiClick 90 mcg/actuati on breath activated TAKE 2 PUFFS BY MOUTH ONCE EVERY 4 HOURS active Not Available Not Available No t Available Vitals None Recorded Social History None recorded. Functional Status None recorded. Mental Status None recorded. Family History Nothing Reported. Medical History No medical history recorded. Gynecological HistoryNo gynecological history recorded. Obstetrics History GPAL:G 0 P 0 0 0 0 Past Encounters Encounter ID Performer Location Encounter Start Date Encounter Closed Date Diagnosis/Indication Diagnosis SNOMED-CT Code Diagnosis ICD10 Code Diagnosis Note [id number] Guru Rabago MD Main Office [address] [facility] [facility] [address] [facility] [phone] 11/01/2023 13:01:12 11/01/2023 13:23:18 Neoplasm of uncertain behavior of skin 57066443 D48.5 Health Concerns Section Related Observation LastModified by Organization Detai ls LastModified Time None Recorded Concern Status LastModified by Organization Details LastModified Time None Recorded Advance Directives Directive None Recorded Payers Encounter Date Sequence Insurance Name Policy Number Policy Nunes Covered Member ID Nunes Member ID Guarantor Name 11/01/2023 1 [place] Brigid Stone Shugert [id number] Brigid Stone Shugert 11/01/2023 2 [id number] [id number] Brigid Stone Shugert [id number] Brigid Stone Shugert Notes Date Note Type Note Provider Name and Address Organization Details Recorded Time 11/01/2023 text/html Bx r thigh post Guru Rabago MD [address] [facility] [address], [place], [address], [facility] 11/01/2023 13:23:09 OBGyn Episode No OBEpisode recorded.
--- NOTE | 2024-06-19 23:43 | ECG_ITS ---
Test Date: 2024-06-19 23:53:31 Measurements Intervals Harleigh Rate: 81 P: 42 MI: 241 QRS: -68 QRSD: 77 T: 46 QT: 357 QTc: 416 Interpretive Statements SINUS RHYTHM WITH FIRST DEGREE AV BLOCK INCOMPLETE RIGHT BUNDLE BRANCH BLOCK LEFT ANTERIOR FASCICULAR BLOCK LOW QRS VOLTAGE IN PRECORDIAL LEADS CONSIDER ANTERIOR INFARCT, AGE INDETERMINATE BASELINE ARTIFACT- I, II, AVR, AVL, AVF ABNORMAL ECG No previous ECG available for comparison Electronically Signed On 06-20-2024 07:00:30 HAND ENDBAND CUTTER by Todd Hercules D.O.
[2024-06-20] VITALS (7 sets, daily range): BP systolic 112–164; BP diastolic 69–84; PULSE 69–82; RESP 13–18; O2SAT 94–100
[2024-06-20 00:28] LABS: Alanine Aminotransferase 18 U/L (6-35); Albumin Level 3.9 g/dL (3.5-5.1); Alkaline Phosphatase 56 U/L (38-126); Anion Gap 11 mmol/L (4-12); Aspartate Amino Transferase 33 U/L (14-36); Bilirubin,Total 0.6 mg/dL (0.2-1.3); Blood Urea Nitrogen 31 mg/dL (7-17); Carbon Dioxide 23 mmol/L (22-30); Chloride 106 mmol/L (98-107); Estimated CRCL calculation 42 ml/min; Estimated Glomerular Filt Rate 54; Glucose 137 mg/dL (65-110); Potassium 4.1 mmol/L (3.4-5.0); Sodium 140 mmol/L (137-145)
[2024-06-20 00:38] LABS: Basophils Absolute Auto 0.1 K/mm3 (0.0-0.1); Eosinophils Absolute Auto 0.1 K/mm3 (0-0.3); Eosinophils Percent Auto 2.1 % (0-4.4); Hematocrit 41.9 % (37.0-47.0); Hemoglobin 13.6 g/dL (12.0-15.0); Immature Granulocyte Absolute 0.01 K/mm3 (0.00-0.031); Immature Granulocyte Percent A 0.1 % (0-0.5); Lymphocytes Absolute Auto 1.81 K/mm3 (0.9-3.2); Lymphocytes Percent Auto 26.6 % (18.3-44.2); Mean Corpuscular HGB Conc 32.5 g/dl (32-36); Mean Corpuscular Hemoglobin 28.6 pg (26-34); Mean Platelet Volume 10.1 fl (7.4-10.4); Monocytes Absolute Auto 0.7 K/mm3 (0.1-0.6); Neutrophils Absolute Auto 4.1 K/mm3 (1.3-6.7); Neutrophils Percent Auto 60.2 % (45.5-73.1); Platelet Count Result 204 k/mm3 (150-375); Red Blood Count 4.76 M/mm3 (4.2-5.4); Red Cell Distribution Width 16.2 % (11.5-14.5); White Blood Count 6.8 K/mm3 (4.5-10.0)
[2024-06-20 00:48] LABS: Influenza A QL RT-PCR Negative (Negative); Influenza B QL RT-PCR Negative (Negative); RSV RNA, RT-PCR Negative (Negative); SARS-CoV-2 RNA PCR Negative (Negative)
--- NOTE | 2024-06-20 05:14 | ED.SOB ---
HPI - SOB/Dyspnea General Chief Complaint: Shortness of Breath/Dyspnea Stated Complaint: sob, lightheadedness, ear fullness x 2 weeks Time Seen by Provider: 06/20/24 05:10 Source: patient and family ( Jaswinder) Mode of arrival: ambulatory Limitations: no limitations History of Present Illness HPI Narrative: Patient presents with report of acutely feeling short of breath, lightheaded after eating at a restaurant and then going to her car. No altered mental status, loss of vision, curtain defect, flashes/floaters. Walks with a cane occasionally (when out and about). Has also had ear fullness x2 weeks (left > right), especially when swallowing. No unilateral symptoms. Works out with a personal fitness trainer and had done so recently. Today she felt like she might pass out but did not lose muscle tone or consciousness. 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 Denies dizziness. [place] short of breath at the time of the episode, when she felt weak. No eye pain, nausea, vomiting. Recent cough; thinks I'm stimulating my vagus nerve. First went to urgent care but significant wait time so went home and then decided to present to ED. No fevers or chills. Endorses a slightly stiff neck but can move it. No history heart failure. Patient states she has been depressed which is unusual for her, can not think of any situational causes. PCP Dr Pina. Manufacturing Engineering Intern Dr elizabeth Forte. Had a cardiac catheterization less than a decade ago which showed some small blockages but nothing requiring stenting. History breast cancer s/p left lumpectomy and mastectomy complicated by infection for which she was on antibiotics and then had C diff. 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 Head injury 2009 UTI (urinary tract infection) Surgical History Surgical History (Updated 06/22/24 @ 09:27 by Mckenna Green MD) H/O mastectomy left H/O lumpectomy Left History of cardiac catheterization 2016; mild blockages 72% and 19%), no stents required Social History Social History Social History: Jaswinder Works out with a personal fitness trainer Smoking status: Never smoker Alcohol intake: current Drinks per week: 1 Substance use: never Living arrangements: with family Additional living arrangements comments: spouse Exam Narrative: GENERAL: Well-appearing, well-nourished, and in no acute distress. HEAD: Normocephalic, atraumatic. EYES: Non injected, non icteric. PERRL. EOMI without nystagmus. ENT: Nares clear, no rhinorrhea or epistaxis. Bilateral ears clear, no erythema, fullness/bulging. TMs easily visualized. NECK: Supple. CHEST: Speaking in full sentences. No respiratory distress. Lungs clear to auscultation bilaterally. HEART: Regular rate and rhythm. . ABDOMEN: Soft, nondistended. EXTREMITIES: Normal range of motion. No lower extremity edema. SKIN: Warm, dry, no rash. NEURO: No focal deficits. Alert and oriented x3. PSYCH: Normal mood and affect. Course Vital Signs Vital signs: Vital Signs Temperature 97.5 F L 06/19/24 23:35 Pulse Rate 84 06/19/24 23:35 Respiratory Rate 16 06/19/24 23:35 Blood Pressure 132/68 06/19/24 23:35 Pulse Oximetry 95 06/19/24 23:35 Oxygen Delivery Room Air 06/19/24 23:35 Temperature 97.5 F L 06/19/24 23:35 Pulse Rate 78 06/20/24 09:33 Respiratory Rate 18 06/20/24 09:33 Blood Pressure 162/83 H 06/20/24 09:33 Pulse Oximetry 100 06/20/24 09:33 Oxygen Delivery Room Air 06/20/24 03:53 MDM - SOB/Dyspnea MDM Narrative Medical decision making narrative: Patient presents with episode of lightheadedness, shortness of breath after walking to car from restaurant earlier today. First went to Urgent care but delay in time to being seen so went home and then presented here. Also ear fullness x2 weeks, left > right. 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 No dizziness, nausea/vomiting, fever/chills, unilateral symptoms. In the emergency department they are afebrile with vital signs within normal limits. Mild elevation in dimer. Although not >1, she does have significant risk factor given history breast cancer. Proceeded with CT imaging. BNP mildly elevated though not enough to suggest acute heart failure given the reference range in patient's age. Her orthostats are borderline/positive. Otherwise able to PO challenge so she does this. Not symptomatic during orthostat assessment and easily ambulates to the bathroom per RN and patient confirms. SHe does have evidence of possible UTI - no bacteria seen but with pyruia, etc. Given first dose antibiotic in the ED with rest of course prescribed and discussed [facility] role of urine culture. Advised follow up and gave return precautions. Verifies understanding. Comfortable with the plan. all questions answered by patient and . Differential Diagnosis Differential diagnosis: Likely congestive heart failure, community acquired pneumonia, pulmonary embolism and other (orthostatic, vasovagal, viral syndrome; infection (UTI); dehydration; considered TIA/cva; no dizziness/vertigo ; ACS) Lab Data Attestation: I reviewed the patient's lab results. 06/19/24 23:58 06/19/24 23:58 Labs: Lab Results 06/19/24 06/20/24 Range/Units 23:58 05:50 WBC 6.8 (4.5-10.0) K/mm3 RBC 4.76 (4.2-5.4) M/mm3 Hgb 13.6 (12.0-15.0) g/dL Hct 41.9 (37.0-47.0) % MCV 88.0 (80-100) fl MCH 28.6 (26-34) pg MCHC 32.5 (32-36) g/dl RDW 16.2 H (11.5-14.5) % Plt Count 204 (150-375) k/mm3 MPV 10.1 (7.4-10.4) fl Immature Gran % (Auto) 0.1 (0-0.5) % Neut % (Auto) 60.2 (45.5-73.1) % Lymph % (Auto) 26.6 (18.3-44.2) % [place] % (Auto) 10.0 H (2.6-8.5) % Eos % (Auto) 2.1 (0-4.4) % Baso % (Auto) 1.0 (0.2-1.2) % Lymph # (Auto) 1.81 (0.9-3.2) K/mm3 [place] # (Auto) 0.7 H (0.1-0.6) K/mm3 Eos # (Auto) 0.1 (0-0.3) K/mm3 Baso # (Auto) 0.1 (0.0-0.1) K/mm3 Abs Immat Gran (auto) 0.01 (0.00-0.031) K/mm3 Absolute Neuts (auto) 4.1 (1.3-6.7) K/mm3 Absolute Nucleated RBC 0.000 (0.0-0.012) K/mm3 Nucleated RBC % 0.0 (0.0-0.2) % D-Dimer 0.56 H (<0.48) ug/mL Sodium 140 (137-145) mmol/L Potassium 4.1 (3.4-5.0) mmol/L Chloride 106 (98-107) mmol/L Carbon Dioxide 23 (22-30) mmol/L Anion Gap 11 (4-12) mmol/L BUN 31 H (7-17) mg/dL Creatinine 0.98 (0.7-1.0) mg/dL Estim Creat Clear Calc 42 ml/min Estimated GFR 54 L (59 - ) Glucose 137 H (65-110) mg/dL Calcium 9.0 (8.4-10.2) mg/dL Total Bilirubin 0.6 (0.2-1.3) mg/dL AST 33 (14-36) U/L ALT 18 (6-35) U/L Alkaline Phosphatase 56 (38-126) U/L Troponin I < 0.012 (0.000-0.034) ng/mL NT-Pro-B Natriuret Pep 290 H (19.9-100) pg/mL Total Protein 7.0 (6.3-8.2) g/dL Albumin 3.9 (3.5-5.1) g/dL Urine Color Yellow (Yellow) Urine Appearance Clear (Clear) Urine pH 5.0 (5.0-9.0) Ur Specific [place] 1.021 (1.001-1.035) Urine Protein Negative (Negative) mg/dL Urine Glucose (UA) Negative (Negative) mg/dL Urine Ketones Negative (Negative) mg/dL Ur Blood (Man) Negative (Negative) Urine Nitrate Negative (Negative) Urine Bilirubin Negative (Negative) Urine Urobilinogen 0.2 (<2.0) mg/dL Leukocyte Esterase Rfl 2+ H (Negative) STEPHEN/UL Urine RBC 0-2 (0-2) /hpf Urine WBC 51-100 H (0-3) /hpf Ur Squamous Epith Cells Occasional (Few) /hpf Urine Bacteria None seen /hpf Urine Casts 0-2 Influenza A (RT-PCR) Negative (Negative) Influenza B (RT-PCR) Negative (Negative) RSV (RT-PCR) Negative (Negative) SARS-CoV-2 RNA (RT-PCR) Negative (Negative) Imaging Data Radiologist's impression: IMPRESSION: Hyperinflation, without focal infiltrate or effusion. Impression: No large vessel occlusion. Areas of bilateral stenosis in the cavernous portions of the distal internal carotid arteries, left worse than right, related to extensive atherosclerotic calcification. No other areas of high-grade stenosis. Impression: No evidence of pulmonary embolus, aortic dissection, or aortic aneurysm. Cystic change or bullous change at the left lung base. Minimal dependent atelectatic change. ECG Data EKG #1: Attestation: I personally reviewed and interpreted this ECG as follows: ECG completion date: 06/19/24 ECG completion time: 23:53 Prior ECG tracings: not available for review (No prior for comparison) Interpretation: Normal sinus rhythm at a rate of 81 beats per minute. DE interval 241 milliseconds consistent with a first-degree AV block. No T-wave inversions. Left anterior fascicular block with rS complexes in leads II, III, aVF (small R waves, deep S waves), qR complexes in lead I , avL (small Q waves and tall R waves) and left axis deviation with Leads II, III and aVF negative and leads I and aVL positive. Discharge Plan Discharge Clinical Impression: Near syncope, UTI (urinary tract infection) Patient Disposition: Home, Self-Care Instructions: Antibiotic Form, Near Syncope (ED), Urinary Tract Infection in Older Adults (ED) Additional Instructions: As we discussed, be cognizant of maintaining your hydration by drinking plenty of fluids (water). Take a course of your antibiotics. You will be notified if based on the urine culture this regimen needs to be changed. Follow-up with your primary care physician. Return to the emergency department with any new or worsening symptoms. Patient Language: Hungarian Prescriptions: New sulfamethoxazole-trimethoprim [Bactrim DS] 800-160 mg tablet 1 tablet PO Q12H 5 Days Qty: 9 0RF Follow-up/Referrals: Tamiko,MD Tuan [Primary Care Provider] - Time of Disposition: 09:20
--- OUTSIDE RECORDS SUMMARY | 2024-06-20 05:39 | XMS_ITS | Encounter Summary ---
Author Organization [email or web address] Address [address] Kramer: Epic Prelude ADT MERARY CALIX [address] Care Team Providers Care Associate Counsel Name Role Phone Tuan Morrison MD Primary Care Provider [phone]- [phone] Encounter Details Date Type Department Care Team (Late st Contact Info) Description 02/06/1991 Outpatient Historical Kofi Gallardo MD [address] 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
--- OUTSIDE RECORDS SUMMARY | 2024-06-20 05:39 | XMS_ITS | Encounter Summary ---
Author Organization [email or web address] Address [address] [place] [address] Care Team Providers Care Director Of Strategic Sales Name Role Phone Tuan Morrison MD Primary Care Provider [phone]- [phone] Encounter Details Date Type Department Care Team (Late st Contact Info) Description 08/21/2003 Outpatient Historical [facility] [address] 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
--- OUTSIDE RECORDS SUMMARY | 2024-06-20 05:39 | XMS_ITS | Encounter Summary ---
Author Organization [facility] Address [address] [place] [address] Care Team Providers Care Commercial Driver Name Role Phone Tuan Morrison MD Primary Care Provider +1- [phone] Reason for Visit * Diagnostic Imaging (Routine) - Closed Specialty Diagnoses / Procedures Referred By Contac t Referred To Contact Diagnoses Malignant neoplasm of unspecified site of left female breast Procedures Breast Imaging [place] [address] [place] [address] Phone: tel: fax: Mena Mansfield MD Phone: tel: fax: Referral ID Status Reason Start Date Expiration Date Visits Re quested Visits Authorized [id number] Closed 05/12/2023 06/10/2024 1 1 Encounter Details Date Type Department Care Team (Late st Contact Info) Description 10/09/2020 Hospital Encounter [facility] [address] [place] [id number] Social History Tobacco Use Types Packs/Day Years [...] on file Legal Sex Female 1:53 AM 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 ??There will be no report generated by a [facility] Radiologist. Narrative RAD_MAMMO[facility] - 05/12/2023 2:05 PM DIVISIONAL MERCHANDISING MANAGER EXAMINATION: ??Images For Reference Purposes Only us [...] documented as of this encounter Care Teams Commercial Driver Relationship Specialty Start Date End Date Tuan Morrison MD [address] [place] [address] PCP - General Family Medicine 09/11/20 documented as of this encounter
--- OUTSIDE RECORDS SUMMARY | 2024-06-20 05:39 | XMS_ITS | CONTINUITY OF CARE DOCUMENT ---
Author Name rosetta sargent Address Unknown Organization [facility] Address [address] [place] [address] Phone [phone] Care Team Providers Care [employer] Cent[employer]ger Name Role Phone Kennedy Castaneda MD Unavailable CONSTANTIN MORRISON Unavailable CONSTANTIN MORRISON Unavailable PROBLEMS Condition Status Date [...] MTHFR mutation - In-person encounter Office Visit Tomym Greco [facility] Office - In-person encounter Office Visit Tommy Bowman MD [facility] Office SnoringOSA - moderatePrediabetesCKD - In-person encounter Office Visit Tommy Willis Office Family History Coronary Heart Disease female < 65:Family History of CVA or Stroke:CADDyslipidemiaAbnormal EKG VITAL SIGNS Date Observation Value Provider Body Mass Index (Ratio) 31.01 kg/m2 Tristan Bowman MD oxygen saturation, oximetry 98 % [facility] respiratory rate E&M 73 /min Chait y Zac blood pressure, diastolic 80 mm[Hg] Ch astity Zac blood pressure, systolic 126 mm[Hg] Lety stity Zac pulse rate 73 /min [facility]&M 198 [lb_av[facility] 67 [in_i] [facility] Body Mass Index (Ratio) 30.54 kg/m2 Tristan Bowman MD blood pressure, diastolic 82 mm[Hg] [facility], systolic 138 mm[Hg] Higinio tate Webb oxygen saturation, oximetry 93 % [facility] rate E&M 16 /min Othello Webb pulse rate 68 /min [facility] weight E&M 195 [lb_av] [facility] height E&M 67 [in_i] [facility] Body Mass Index (Ratio) 30.38 kg/m2 Tristan Bowman MD blood pressure, diastolic 72 mm[Hg] Al lison [facility] blood pressure, systolic 124 mm[Hg] All pauline [facility] oxygen saturation, oximetry 97 % [facility] respiratory rate E&M 16 /min [facility] pulse rate 72 /min [facility] weight E&M 194 [lb_av] [facility] height E&M 67 [in_i] [facility] Body Mass Index (Ratio) 31.32 kg/m2 Tristan Bowman MD blood pressure, diastolic 72 mm[Hg] Al lison [facility] blood pressure, systolic 116 mm[Hg] All [facility] oxygen saturation, oximetry 95 % [facility] respiratory rate E&M 15 /min [facility] pulse rate 72 /min [facility] blood pressure, resting No Luis [facility] weight E&M 200 [lb_av] [facility] height E&M 67 [in_i] [facility] Body Mass Index (Ratio) 31.01 kg/m2 Tristan Bowman MD blood pressure, diastolic 64 mm[Hg] Al lison [facility] blood pressure, systolic 118 mm[Hg] [facility], oximetry 93 % [facility] respiratory rate E&M 15 /min [facility] pulse rate 76 /min [facility] weight E&M 198 [lb_av] [facility] height E&M 67 [in_i] [facility] blood pressure, diastolic 76 mm[Hg] Al lison [facility] blood pressure, systolic 124 mm[Hg] All pauline [facility] pulse rate 79 /min [facility] oxygen saturation, oximetry 97 % Pilar [...] 3.5-5.1 08/15 sodium, serum 140 mmol/L [employer] [phone]/0 4/02 calcium, serum 9.2 mg/dL [employer] 8.5-10.5 [...] 3.5-5.1 01/24 sodium, serum 141 mmol/L [employer] [phone]/0 9/11 calcium, serum 9.1 mg/dL [employer] 8.5-10.5 [...] 3.5-5.1 06/28 sodium, serum 143 mmol/L [employer] [phone]/0 2/13 calcium, serum 9.5 mg/dL [employer] 8.5-10.5 [...] 3.5-5.1 12/21 sodium, serum 139 mmol/L [employer] [phone]/0 8/08 calcium, serum 9.5 mg/dL [employer] 8.5-10.5 [...] Henao BERGAMOT OIL OIL completed - 2 Tommy Bowman MD METFORMIN HCL ER 500 MG [...] alcohol use, average drinks per day <1 Othello Webb alcohol use yes Othello Webb smoking status Never smoker Apolinar Pineda m social history reviewed E&M revi ewed - no changes required Tommy Bowman MD alcohol use, average drinks per day <1 Tmomy Bowman MD alcohol use yes Tommy Bowman [...] Payer name Policy type / Coverage type [place] red democrat ID [facility] [id number] [place] MED[place] PART B Medicare [id number] ADVANCE DIRECTIVES Name Date POWER OF SPEECH AND LANGUAGE ASSISTANT TREATMENT PLAN Date Name Performer Cardiology: T he elevated MPO has resolved. CRP up to 3.8 from 2.4. Lppla2 increased at 75. No peridontal disease per dental. Increase [place] 3. Unable to tolerate pravastatin 20mg daily due to myalgias. Continue curcumin 500mg BID Tommy Bowman MD Cardiology: s leeps 7 hours with CPAP Tommy Bowman MD Cardiology: c r decreased to 1.03 from 1.22. No significant microalbuminuria. BP controlled. 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 Lifestyle mods recommended to prevent progression. Tommy Bowman MD Cardiology: A 1last 5.3 worsening to over 6.0. Patient previously decided not to start metformin due to potential side effects. Berberine was ineffective. She is working with a central supply assistant and exercising more. Continue low-glycemic load regimen. [...] previously normal. 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 Continue Probiotic. Tommy Bowman MD Cardiology: T he elevated MPO has resolved. CRP 2.4 decreasing. Lppla2 increased again. No peridontal disease per dental. Resumed [place] 3. Unable to tolerate pravastatin 20mg daily due to myalgias. Continue curcumin 500mg BID Tommy Bowman MD Cardiology: s leeps 7 hours with CPAP Tommy Bowman MD Cardiology: c r 1.22. elevated sdma. No microalbuminuria. BP controlled. 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 Lifestyle mods recommended to prevent progression. Tommy Bowman MD Cardiology: A 1last 5.8. Patient previously decided not to start metformin due to potential side effects. Berberine was ineffective. She is working with a central supply assistant and exercising more. Continue low-glycemic load regimen. [...] resolved. No peridontal disease per dental. Continue [place] 3. Unable to tolerate pravastatin 20mg daily due to myalgias. Continue curcumin 500mg BID Tommy Bowman MD Cardiology: s leeps 7 hours with CPAP Tommy Bowman MD Cardiology: g fr remains close to 60 and unchanged from before. No microalbuminuria. BP controlled. 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 Lifestyle mods recommended to prevent progression. Tommy Bowman MD Cardiology: A 1c down to 5.8 from 6.4. Patient decided not to start metformin due to potential side effects. Berberine was ineffective. She is working with a central supply assistant and exercising more. Continue low-glycemic load regimen. [...] and L pPLA2 are also elevated. Continue [place] 3. Add statin. Add curcumin 500mg BID. Recommend dental evaluation. Tommy Bowman MD Cardiology:sleeps 6-7 hours with CPAP oTmmy Bowman MD Cardiology:estimated gfr 56. No microalbuminuria. BP controlled. 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 Lifestyle mods and metformin recommended to [...] bottle is done. 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 Tommy Bowman MD Cardiology:sleeps 6-7 hours with CPAP Tommy Bowman MD Cardiology:estimated gfr 50. 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 Lifestyle mods and metformin recommended to [...] Already on probiotic. 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
--- OUTSIDE RECORDS SUMMARY | 2024-06-20 05:39 | XMS_ITS | Encounter Summary ---
Author Organization [facility] Address [facility] [facility] [place] [address] Care Team Providers Care Supervisor Covering And Lining Name Role Phone Tuan Morrison MD Primary Care Provider +1- [phone] Encounter Details Date Type Department Care Team (Late st Contact Info) Description 11/02/2023 Lab Requisition [facility] - DermPath Lab [address] [place] [phone] Guru Rabago MD [address] [phone] Social History Tobacco Use Types Packs/Day Years Used Date Smoking Tobacco: Never Assessed Sex and Gender Information Value Date Recorded Sex Assigned at Female 05/01/2024 6:42 PM LOADING CHECKER Gender Identity Female 05/01/2024 6:42 PM LOADING CHECKER Sexual Orientation Bisexual 05/01/2024 6: 42 PM LOADING CHECKER documented as of this encounter Plan of Treatment Upcoming Encounters Date Type Department Care Team (Latest Contact Info) Description 07/02/2024 10:15 AM LOADING CHECKER Appointment [facility] [address] [place] [address] 08/02/2024 10:10 AM CDT Hospital Encounter [facility] - Perioperative Surgery [address] [place] [address] [place] [address] [place] [address] Surgery General 08/02/2024 10:10 AM CDT - 08/02/2024 12:28 PM CDT Surgery [facility] - Perioperative Surgery [address] [place] [address] [place] [address] [place] [address] LEFT TOTAL KNEE ARTHROPLASTY Scheduled Procedures Name Priority Associated Diagnoses Date/Ti me ARTHROPLASTY TOTAL KNEE 07/15 10:10 AM CDT documented as of this encounter Procedures Procedure Name Priority Date/Time Associated Diagnosis Comments DERMATOPATHOLOGY Routine 11/01/2023 3:33 AM CDT documented in this encounter Results * DERMATOPATHOLOGY (11/01/2023 3:33 AM CDT) Case Report Dermatopathology Report ? Case: [id number] ? Authorizing Provider: ??Guru Rabago MD ?Collected: ? 11/01/2023 03:33 AM ? Ordering Location: ? [facility] - ??Received: ?11/02/2023 12:35 PM ? DermPath Lab ? Pathologist: ? Angela Bernal MD ? Specimen: ?Skin, right posterior thigh ? 10:[address] [facility] DERMATOPATHOLOGY LABORATORY Final Diagnosis Specimen A. 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 DERMATOPATHOLOGY LABORATORY Clinical History Nevus, R/O Melanoma 10:[address] [facility] DERMATOPATHOLOGY LABORATORY Gross Description Specimen A: Received is one formalin filled container labeled with the patient's name and designated right posterior thigh. The specimen consists of a shave biopsy measuring 5x3x1 mm. Jar 0. 10:[address] [facility] DERMATOPATHOLOGY LABORATORY Microscopic Description Specimen A. SKIN, [...] with depth. (Compound Lisandro's Nevus) 10:[address] [facility] DERMATOPATHOLOGY LABORATORY Disclaimer An external and internal positive and negative controls are appropriate for the histochemical, immunohistochemical and immunofluorescence stain(s) in this case (if any), except where stated explicitly. The performance characteristics of the stain(s) cited in this report were developed and its performance characteristic determined by the Dermatopathology Laboratory at [facility], directed by Dr. Elaina Curtis. These tests need not be, and therefore are not, approved by the [place] Food and Drug Administration. The tests are used for clinical purposes. Billing Codes Specimen Charges Stain Charges 78676 1 10:[address] [facility] DERMATOPATHOLOGY LABORATORY Embedded Images 10:[address] [facility] DERMATOPATHOLOGY LABORATORY Pathology/Cytolo gy TISSUE SPECIMEN FROM SKIN / Unknown 11/01/2023 3:33 AM CDT 11/02/2023 12:35 PM CDT Guru Rabago MD LAB - PATHOLOGY/CYTO LOGY ORDERABLES DERMATOPATHOLOGY LABORATORY [facility] - Department of Dermatology [facility] Specialized Medicine [address] [place] [address], [address] [phone] documented in this encounter Visit Diagnoses Not on filedocumented in this encounter Care Teams Supervisor Covering And Lining Relationship Specialty Start Date End Date Tuan Morrison MD [address] [facility] [address] PCP - General Family Medicine 04/17/24 documented as of this encounter
--- OUTSIDE RECORDS SUMMARY | 2024-06-20 05:39 | XMS_ITS | Referral Summary ---
Author Organization [facility] Address [address] [place] [address] Care Team Providers Care Pals Nurse Name Role Phone Tuan Morrison MD Primary Care Provider +1- [phone] Source Comments [facility] Affiliates and Associated Physician Practices is amultiple site organization consisting of ambulatory clinics and hospital sitesin [place], [place], [place] and [place]. This disclosure is being madepursuant to the Care Everywhere program and may not contain all information available regarding this patient. Last updated 18.[facility] Encounters Date Type Department Care Team Description 05/29/2024 2:00 PM TANK TENDER Office Visit [facility] [address] [place] [phone] Edinson Denise MD Primary osteoarthritis of left knee (Primary Dx) 04/17/2024 10:25 AM TANK TENDER Ancillary Procedure [facility] Orthopedics - Radiology [address] [place] [phone] Edinson Denise MD Left knee pain, unspecified chronicity 04/17/2024 10:10 AM TANK TENDER Office Visit [facility] [address] [place] [phone] Edinson Denise MD Left knee pain, unspecified [...] Sex Assigned at Female 05/01/2024 6:42 PM TANK TENDER Gender Identity Female 05/01/2024 6:42 PM TANK TENDER Sexual Orientation Bisexual 05/01/2024 6: 42 PM TANK TENDER Last Filed Vital Signs Vital Sign Reading Time Taken Comments Blood Pressure - - Pulse - - Temperature - - Respiratory Rate - - Oxygen Saturation - - Inhaled Oxygen Concentration - - Weight 85.3 kg (188 lb) 04/17/2024 10:24 AM TANK TENDER Height 170.2 cm (5' 7 ) 04/17/2024 10:24 AM TANK TENDER Body Mass Index 29.44 04/17/2024 10:24 AM TANK TENDER Plan of Treatment Upcoming Encounters Date Type Department Care Team (Latest Contact Info) Description 07/02/2024 10:15 AM TANK TENDER Appointment [facility] Pret[facility] [address] [place], [place] [id number] 08/02/2024 10:10 AM CDT Hospital Encounter [facility] - Perioperative Surgery [address] [place] [address] [place] [address] [place], [place] [id number] Surgery General 08/02/2024 10:10 AM CDT - 08/02/2024 12:28 PM CDT Surgery [facility] - Perioperative Surgery [address] [place] [address] [place] [address] [facility] [address] [place] [address] LEFT TOTAL KNEE ARTHROPLASTY Scheduled Procedures Name Priority Associated Diagnoses Date/Ti me ARTHROPLASTY TOTAL KNEE 07/15 10:10 AM CDT Procedures Procedure Name Priority Date/Time Associated Diagnosis Comments XR KNEE LEFT 3VW Routine 04/17/2024 10:2 2 AM TANK TENDER Left knee pain, unspecified chronicity from Last 3 Months Results * XR Knee Left 3Vw (04/17/2024 10:22 AM TANK TENDER) Narrative [facility] [address] - 04/17/2024 10:22 AM TANK TENDER Please see progress note in Epic for results. Edinson Denise MD DIAGNOSTIC IMAGING O RDERABLES [facility] [address] from Last 3 Months Care Teams Pals Nurse Relationship Specialty Start Date End Date Tuan Morrison MD [address] [facility], [address] PCP - General Family Medicine 04/17/24
--- OUTSIDE RECORDS SUMMARY | 2024-06-20 05:39 | XMS_ITS | Encounter Summary ---
Author Organization [facility] Address [address] [place] [address] Care Team Providers Care Security Assistant Name Role Phone Tuan Morrison MD Primary Care Provider +1- [phone] Encounter Details Date Type Department Care Team [...] on file Legal Sex Female 2:58 AM SURGERY TEACHER Gender Identity Not on file Sexual Orientation Not on file documented as of this encounter Plan of Treatment Not on file documented as of this encounter Visit Diagnoses Diagnosis Sprain of neck- Primary documented in this encounter Additional Health Concerns Infection Onset Date Last Indicated Resolved Time R/O COVID-19 02/04/2023 02/04/2023 02/04/2023 2:27 AM CDT documented as of this encounter Care Teams Security Assistant Relationship Specialty Start Date End Date Tuan Morrison MD [address] [place] [address] PCP - General 03/25/15 documented as of this encounter
--- OUTSIDE RECORDS SUMMARY | 2024-06-20 05:39 | XMS_ITS | Patient Health Summary ---
Author Organization [facility] Address [address] [place] [address] Care Team Providers Care Engineering Technician Parking Name Role Phone Tuan Morrison MD Primary Care Provider +1- [phone] Note from [facility],non-owned Affiliates and Associated Physician Practices is amultiple site organization consisting of ambulatory clinics and hospital sitesin [place], [place], [place] and [place]. This disclosure is being madepursuant to the Care Everywhere program and may not contain all information available regarding this patient. Last updated 18.[facility] Allergies * Azithromycin(Unknown) -Low Criticality * [facility] [...] Sex Assigned at Female 05/01/2024 6:42 PM WEAVING SUPERVISOR Gender Identity Female 05/01/2024 6:42 PM WEAVING SUPERVISOR Sexual Orientation Bisexual 05/01/2024 6: 42 PM WEAVING SUPERVISOR Last Filed Vital Signs Vital Sign Reading Time Taken Comments Blood Pressure - - Pulse - - Temperature - - Respiratory Rate - - Oxygen Saturation - - Inhaled Oxygen Concentration - - Weight 85.3 kg (188 lb) 04/17/2024 10:24 AM WEAVING SUPERVISOR Height 170.2 cm (5' 7 ) 04/17/2024 10:24 AM WEAVING SUPERVISOR Body Mass Index 29.44 04/17/2024 10:24 AM WEAVING SUPERVISOR Procedures * XR KNEE LEFT 3VW(Performed 04/17/2024) Performed for Left knee pain, unspecified chronicity * DERMATOPATHOLOGY(Performed 11/01/2023) * DERMATOPATHOLOGY(Performed 12/30/2015) * DERMATOPATHOLOGY(Performed 05/20/2015) Results * XR Knee Left 3Vw (04/17/2024 10:22 AM WEAVING SUPERVISOR) Narrative [facility] [address] - 04/17/2024 10:22 AM WEAVING SUPERVISOR Please see progress note in Epic for results. Edinson Denise MD DIAGNOSTIC IMAGING O RDERABLES [facility] [address] * DERMATOPATHOLOGY (11/01/2023 3:33 AM CDT) Only the most recent of3 resultswithin the time period is included. Case Report Dermatopathology Report ? Case: [id number] ? Authorizing Provider: ??Guru Rabago MD ?Collected: ? 11/01/2023 03:33 AM ? Ordering Location: ? [facility] - ??Received: ?11/02/2023 12:35 PM ? DermPath Lab ? Pathologist: ? Angela Bernal MD ? Specimen: ?Skin, right posterior thigh ? 10:55 AM [facility] DERMATOPATHOLOGY LABORATORY Final Diagnosis Specimen A. 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 The specimen consists of a shave biopsy measuring 5x3x1 mm. Jar 0. 10:55 AM [facility] DERMATOPATHOLOGY LABORATORY Microscopic Description Specimen A. SKIN, [...] with depth. (Compound Lisandro's Nevus) 10:55 AM [facility] DERMATOPATHOLOGY LABORATORY Disclaimer An external and internal positive and negative controls are appropriate for the histochemical, immunohistochemical and immunofluorescence stain(s) in this case (if any), except where stated explicitly. The performance characteristics of the stain(s) cited in this report were developed and its performance characteristic determined by the Dermatopathology Laboratory at [facility], directed by Dr. Elaina Curtis. These tests need not be, and therefore are not, approved by the [place] Food and Drug Administration. The tests are used for clinical purposes. Billing Codes Specimen Charges Stain Charges 62093 1 4 10:55 AM CDT DERMATOPATHOLOGY LABORATORY Embedded Images 4 10:55 AM CDT DERMATOPATHOLOGY LABORATORY Pathology/Cytolo gy TISSUE SPECIMEN FROM SKIN / Unknown 11/01/2023 3:33 AM CDT 11/02/2023 12:35 PM CDT Guru Rabago MD LAB - PATHOLOGY/CYTO LOGY ORDERABLES DERMATOPATHOLOGY LABORATORY [facility] - Department of Dermatology [facility] [address] [facility], [address]rd Floor [address] [phone] Care Teams Engineering Technician Parking Relationship Specialty Start Date End Date Tuan Morrison MD [address] [facility] [address] PCP - General Family Medicine 04/17/24
--- OUTSIDE RECORDS SUMMARY | 2024-06-20 05:39 | XMS_ITS | Encounter Summary ---
Author Organization [facility] Address [address] Kramer: Epic Prelude ADT [place] [address] Care Team Providers Care Fermenter Wine Name Role Phone Tuan Morrison MD Primary Care Provider +1- [phone] Encounter Details Date Type Department Care Team (Late st Contact Info) Description 05/18/1990 Outpatient Historical Kofi Gallardo MD [address] [facility] [address] [place] [address] Social History Tobacco Use Types Packs/Day Years Used Date Smoking Tobacco: Never Assessed Comments Unknown Sex and Gender Information Value Date Recorded Sex Assigned at Not on file Legal Sex Female 2:58 AM BOOKY Gender Identity Not on file Sexual Orientation Not on file documented as of this encounter Plan of Treatment Not on file documented as of this encounter Visit Diagnoses Not on filedocumented in this encounter Additional Health Concerns Infection Onset Date Last Indicated Resolved Time R/O COVID-19 02/04/2023 02/04/2023 02/04/2023 2:27 AM CDT documented as of this encounter Care Teams Fermenter Wine Relationship Specialty Start Date End Date Tuan Morrison MD [address] [place] [address] PCP - General 03/25/15 documented as of this encounter
--- OUTSIDE RECORDS SUMMARY | 2024-06-20 05:39 | XMS_ITS | Referral Summary ---
Author Organization [facility] [address] Address [address] [place] [address] Care Team Providers Care Mathematics Department Chair Name Role Phone Tuan Morrison MD Primary Care Provider +1- [phone] Encounters Date Type Department Care Team Description 03/22/2024 11:45 AM INVESTIGATIONS DIRECTOR Office Visit [facility] On[facility] [facility] Floor [address] [place] [address] Ismael Tejeda MD Malignant neoplasm [...] 1 tablet (75 mcg total) by mouth farm equipment service technician before breakfast Active vitamin D3-vitamin K2 25 mcg (1,000 unit)-90 mcg tablet,disinte grating Take by mouth Active magnesium citrate 100 mg tablet Take 100 mg by mouth daily after lunch Active vit D3-vit R-lukzijpfn-vv ps [phone] grvn-pel-hl-mg tablet Take by mouth Active cholecalcifero l [...] from 02/28/2023:Stage IA(pT2, pN0(sn), cM0, G2, ER+, AK+, HER2-) - Unsigned Primary osteoarthritis of left [...] on file Legal Sex Female 1:53 AM INVESTIGATIONS DIRECTOR Gender Identity Not on file Sexual Orientation Not on file Last Filed Vital Signs Vital Sign Reading Time Taken Comments Blood Pressure 145/80 03/22/2024 11:47 AM INVESTIGATIONS DIRECTOR Pulse 65 03/22/2024 11:47 AM INVESTIGATIONS DIRECTOR Temperature 36.1 ??C (97 ??F) 03/22/2024 11:47 AM INVESTIGATIONS DIRECTOR Respiratory Rate 18 12/15/2023 11:46 AM CDT Oxygen Saturation 96% 03/22/2024 11:47 AM INVESTIGATIONS DIRECTOR Inhaled Oxygen Concentration - - Weight 85.3 kg (188 lb) 03/22/2024 11:47 AM INVESTIGATIONS DIRECTOR Height 165.1 cm (5' 5 ) 03/22/2024 11:47 AM INVESTIGATIONS DIRECTOR Body Mass Index 31.28 03/22/2024 11:47 AM INVESTIGATIONS DIRECTOR Plan of Treatment Not on file Insurance MEDICARE [facility] MEDICARE [facility] MEDICARE [facility] Advance Directives For more information, please contact: [phone] Documents on File Type Date Recorded Patient Gate Watchman Expl anation ADVANCE DIRECTIVE 08/08/2023 2:02 PM Power of Infection Prevention Practitioner-Medical Care Teams Mathematics Department Chair Relationship Specialty Start Date End Date Tuan Morrison MD [address] [place] [address] PCP - General Family Medicine 09/11/20
--- OUTSIDE RECORDS SUMMARY | 2024-06-20 05:39 | XMS_ITS | Encounter Summary ---
Author Organization [facility] Address [address] Kramer: Epic Prelude ADT [place] [address] Care Team Providers Care Multiple Drum Sander Name Role Phone Tuan Morrison MD Primary Care Provider +1- [phone] Encounter Details Date Type Department Care Team (Late st Contact Info) Description 01/06/1993 Outpatient Historical Kofi Gallardo MD [address] [facility] [address] [place] [address] Social History Tobacco Use Types Packs/Day Years Used Date Smoking Tobacco: Never Assessed Comments Unknown Sex and Gender Information Value Date Recorded Sex Assigned at Not on file Legal Sex Female 2:58 AM PROCESS SPECIALIST Gender Identity Not on file Sexual Orientation Not on file documented as of this encounter Plan of Treatment Not on file documented as of this encounter Visit Diagnoses Not on filedocumented in this encounter Additional Health Concerns Infection Onset Date Last Indicated Resolved Time R/O COVID-19 02/04/2023 02/04/2023 02/04/2023 2:27 AM CDT documented as of this encounter Care Teams Multiple Drum Sander Relationship Specialty Start Date End Date Tuan Morrison MD [address] [place] [address] PCP - General 03/25/15 documented as of this encounter
--- OUTSIDE RECORDS SUMMARY | 2024-06-20 05:39 | XMS_ITS | Encounter Summary ---
Author Organization [facility] Address [address] Kramer: Epic Prelude ADT [place] [address] Care Team Providers Care Sternman Name Role Phone Tuan Morrison MD Primary Care Provider +1- [phone] Encounter Details Date Type Department Care Team (Late st Contact Info) Description 02/20/1990 Outpatient Historical Kofi Gallardo MD [address] [facility] [address] [place] [address] Social History Tobacco Use Types Packs/Day Years Used Date Smoking Tobacco: Never Assessed Comments Unknown Sex and Gender Information Value Date Recorded Sex Assigned at Not on file Legal Sex Female 2:58 AM TECHNICAL SERVICES REP Gender Identity Not on file Sexual Orientation Not on file documented as of this encounter Plan of Treatment Not on file documented as of this encounter Visit Diagnoses Not on filedocumented in this encounter Additional Health Concerns Infection Onset Date Last Indicated Resolved Time R/O COVID-19 02/04/2023 02/04/2023 02/04/2023 2:27 AM CDT documented as of this encounter Care Teams Sternman Relationship Specialty Start Date End Date Tuan Morrison MD [address] [place] [address] PCP - General 03/25/15 documented as of this encounter
--- OUTSIDE RECORDS SUMMARY | 2024-06-20 05:39 | XMS_ITS | Encounter Summary ---
Author Organization [facility] Address [address] Kramer: Epic Prelude ADT [place] [address] Care Team Providers Care Planning Lead Name Role Phone Tuan Morrison MD Primary Care Provider +1- [phone] Encounter Details Date Type Department Care Team (Late st Contact Info) Description 12/28/1991 Outpatient Historical Kofi Gallardo MD [address] [facility] [address] [place] [address] Social History Tobacco Use Types Packs/Day Years Used Date Smoking Tobacco: Never Assessed Comments Unknown Sex and Gender Information Value Date Recorded Sex Assigned at Not on file Legal Sex Female 2:58 AM TRACKMAN Gender Identity Not on file Sexual Orientation Not on file documented as of this encounter Plan of Treatment Not on file documented as of this encounter Visit Diagnoses Not on filedocumented in this encounter Additional Health Concerns Infection Onset Date Last Indicated Resolved Time R/O COVID-19 02/04/2023 02/04/2023 02/04/2023 2:27 AM CDT documented as of this encounter Care Teams Planning Lead Relationship Specialty Start Date End Date Tuan Morrison MD [address] [place] [address] PCP - General 03/25/15 documented as of this encounter
--- OUTSIDE RECORDS SUMMARY | 2024-06-20 05:39 | XMS_ITS | Encounter Summary ---
Author Organization [facility] Address [address] [place] [address] Care Team Providers Care Industrial Custodian Name Role Phone Unavailable Primary Care Provider Unavailabl e Reason for Visit * Diagnostic Imaging (Routine) - Closed Specialty Diagnoses / Procedures Referred By Contac t Referred To Contact Procedures Breast Imaging [place] [address] [place] [address] Phone: tel: fax: Referral ID Status Reason Start Date Expiration Date Visits Re quested Visits Authorized [id number] Closed 05/12/2023 06/10/2024 1 1 Encounter Details Date Type Department Care Team (Late st Contact Info) Description 10/02/2019 Hospital Encounter [facility] [address] [place] [address] Social History Tobacco Use Types Packs/Day Years [...] on file Legal Sex Female 1:53 AM TRAVELING ELECTRICIAN Gender Identity Not on file Sexual Orientation [...] CDT) Impressions [facility] - 05/12/2023 1:55 PM TRAVELING ELECTRICIAN These images are for Reference purposes only and have not been reviewed by [facility] [place] [facility]. ??There will be no report generated by a [facility] Radiologist. Narrative [facility] - 05/12/2023 1:55 PM TRAVELING ELECTRICIAN EXAMINATION: ??Images For Reference Purposes Only us [...]
--- OUTSIDE RECORDS SUMMARY | 2024-06-20 05:39 | XMS_ITS | Encounter Summary ---
Author Organization [facility] Address [address] Kramer: Epic Prelude ADT [place] [address] Care Team Providers Care Milling Machine Set Up Operator Name Role Phone Tuan Morrison MD Primary Care Provider +1- [phone] Encounter Details Date Type Department Care Team (Late st Contact Info) Description 02/01/1992 Outpatient Historical Kofi Gallardo MD [address] [facility] [address] [place] [address] Social History Tobacco Use Types Packs/Day Years Used Date Smoking Tobacco: Never Assessed Comments Unknown Sex and Gender Information Value Date Recorded Sex Assigned at Not on file Legal Sex Female 2:58 AM VOCATIONAL PLACEMENT SPECIALIST Gender Identity Not on file Sexual Orientation Not on file documented as of this encounter Plan of Treatment Not on file documented as of this encounter Visit Diagnoses Not on filedocumented in this encounter Additional Health Concerns Infection Onset Date Last Indicated Resolved Time R/O COVID-19 02/04/2023 02/04/2023 02/04/2023 2:27 AM CDT documented as of this encounter Care Teams Milling Machine Set Up Operator Relationship Specialty Start Date End Date Tuan Morrison MD [address] [place] [address] PCP - General 03/25/15 documented as of this encounter
--- OUTSIDE RECORDS SUMMARY | 2024-06-20 05:39 | XMS_ITS | Encounter Summary ---
Author Organization [facility] Address [address] Kramer: Epic Prelude ADT [place] [address] Care Team Providers Care Hose Coupling Joiner Name Role Phone Tuan Morrison MD Primary Care Provider +1- [phone] Encounter Details Date Type Department Care Team (Late st Contact Info) Description 04/18/1990 Outpatient Historical Kofi Gallardo MD [address] [facility] [address] [place] [address] Social History Tobacco Use Types Packs/Day Years Used Date Smoking Tobacco: Never Assessed Comments Unknown Sex and Gender Information Value Date Recorded Sex Assigned at Not on file Legal Sex Female 2:58 AM RV REPAIRER Gender Identity Not on file Sexual Orientation Not on file documented as of this encounter Plan of Treatment Not on file documented as of this encounter Visit Diagnoses Not on filedocumented in this encounter Additional Health Concerns Infection Onset Date Last Indicated Resolved Time R/O COVID-19 02/04/2023 02/04/2023 02/04/2023 2:27 AM CDT documented as of this encounter Care Teams Hose Coupling Joiner Relationship Specialty Start Date End Date Tuan Morrison MD [address] [place] [address] PCP - General 03/25/15 documented as of this encounter
--- OUTSIDE RECORDS SUMMARY | 2024-06-20 05:39 | XMS_ITS | Clinical Summary ---
Author Organization [facility] Address [address] [place] [address] Care Team Providers Care Mill Operator Head Name Role Phone Tuan Morrison MD Primary Care Provider +1- [phone] Source Comments [facility] Knowable,non-owned Affiliates and Associated Physician Practices is amultiple site organization consisting of ambulatory clinics and hospital sitesin [place], [place], [place] and [place]. This disclosure is being madepursuant to the Care Everywhere program and may not contain all information available regarding this patient. Last updated 18.[facility] Knowable Allergies Active Allergy Reactions Criticality Noted Date [...] Department Care Team Description 05/29/2024 2:00 PM SCIENTIFIC ASSOCIATE Office Visit [facility] [address] [place] [address], [address] [address] Edinson Denise MD Primary osteoarthritis of left knee (Primary Dx) 04/17/2024 10:25 AM SCIENTIFIC ASSOCIATE Ancillary Procedure [facility] - Radiology [address] [place] [address] Edinson Denise MD Left knee pain, unspecified chronicity 04/17/2024 10:10 AM SCIENTIFIC ASSOCIATE Office Visit [facility] [address] [place] [address] Edinson Denise MD Left knee [...] Sex Assigned at Female 05/01/2024 6:42 PM SCIENTIFIC ASSOCIATE Gender Identity Female 05/01/2024 6:42 PM SCIENTIFIC ASSOCIATE Sexual Orientation Bisexual 05/01/2024 6: 42 PM SCIENTIFIC ASSOCIATE Last Filed Vital Signs Vital Sign Reading Time Taken Comments Blood Pressure - - Pulse - - Temperature - - Respiratory Rate - - Oxygen Saturation - - Inhaled Oxygen Concentration - - Weight 85.3 kg (188 lb) 04/17/2024 10:24 AM SCIENTIFIC ASSOCIATE Height 170.2 cm (5' 7 ) 04/17/2024 10:24 AM SCIENTIFIC ASSOCIATE Body Mass Index 29.44 04/17/2024 10:24 AM SCIENTIFIC ASSOCIATE Plan of Treatment Upcoming Encounters Date Type Department Care Team (Latest Contact Info) Description 07/02/2024 10:15 AM SCIENTIFIC ASSOCIATE Appointment [facility] [address] [place] [address] 08/02/2024 10:10 AM CDT Hospital Encounter [facility] - Perioperative Surgery [address] [place], [place] [id number] [place] [address] [place] [address] Surgery General 08/02/2024 10:10 AM CDT - 08/02/2024 12:28 PM CDT Surgery [facility] - Perioperative Surgery [address] [place] [address] [place] [address] [facility] [address] [place], [place] [id number] LEFT TOTAL KNEE ARTHROPLASTY Scheduled Procedures Name [...] LEFT 3VW Routine 04/17/2024 10:2 2 AM SCIENTIFIC ASSOCIATE Left knee pain, unspecified chronicity from Last 3 Months Results * XR Knee Left 3Vw (04/17/2024 10:22 AM SCIENTIFIC ASSOCIATE) Narrative [facility] [place] [address] - 04/17/2024 10:22 AM SCIENTIFIC ASSOCIATE Please see progress note in Epic for results. Edinson Denise MD DIAGNOSTIC IMAGING O RDERABLES [facility] [place] [address] from Last 3 Months Care Teams Mill Operator Head Relationship Specialty Start Date End Date Tuan Morrison MD [address] [facility], [address] PCP - General Family Medicine 04/17/24
--- OUTSIDE RECORDS SUMMARY | 2024-06-20 05:39 | XMS_ITS | Encounter Summary ---
Author Organization [facility] Address [address] Kramer: Epic Prelude ADT [place] [address] Care Team Providers Care Youth Support Worker Name Role Phone Tuan Morrison MD Primary Care Provider +1- [phone] Encounter Details Date Type Department Care Team (Late st Contact Info) Description 12/19/1989 Outpatient Historical Kofi Gallardo MD [address] [facility] [address] [place] [address] Social History Tobacco Use Types Packs/Day Years Used Date Smoking Tobacco: Never Assessed Comments Unknown Sex and Gender Information Value Date Recorded Sex Assigned at Not on file Legal Sex Female 2:58 AM CHANGE CONSULTANT Gender Identity Not on file Sexual Orientation Not on file documented as of this encounter Plan of Treatment Not on file documented as of this encounter Visit Diagnoses Not on filedocumented in this encounter Additional Health Concerns Infection Onset Date Last Indicated Resolved Time R/O COVID-19 02/04/2023 02/04/2023 02/04/2023 2:27 AM CDT documented as of this encounter Care Teams Youth Support Worker Relationship Specialty Start Date End Date Tuan Morrison MD [address] [place] [address] PCP - General 03/25/15 documented as of this encounter
--- OUTSIDE RECORDS SUMMARY | 2024-06-20 05:40 | XMS_ITS | Encounter Summary ---
Author Organization [facility] Address [address] [place] [address] Care Team Providers Care Rehabilitation Program Coordinator Name Role Phone Unavailable Primary Care Provider Unavailabl e Reason for Visit * Diagnostic Imaging (Routine) - Closed Specialty Diagnoses / Procedures Referred By Contac t Referred To Contact Diagnoses Malignant neoplasm of left female breast, unspecified estrogen receptor status, unspecified site of breast (HCC) Procedures Breast Imaging Screening Outside Reference Mena Mansfield MD [address] [place] [address] Phone: tel: fax: Referral ID Status Reason Start Date Expiration Date Visits Re quested Visits Authorized [id number] Closed 05/12/2023 06/10/2024 1 1 Encounter Details Date Type Department Care Team (Late st Contact Info) Description 08/08/2018 Hospital Encounter [facility] [address] [place], [place] [id number] Social History Tobacco Use Types Packs/Day Years [...] on file Legal Sex Female 1:53 AM PRODUCTION SOLDERER Gender Identity Not on file Sexual Orientation [...] CDT) Impressions [facility] - 05/12/2023 2:05 PM PRODUCTION SOLDERER These images are for Reference purposes only and have not been reviewed by [facility] Radiology. ??There will be no report generated by a [facility] Radiologist. Narrative [facility] - 05/12/2023 2:05 PM PRODUCTION SOLDERER EXAMINATION: ??Images For Reference Purposes Only us [...]
--- OUTSIDE RECORDS SUMMARY | 2024-06-20 05:40 | XMS_ITS | Encounter Summary ---
Author Organization [facility] Address [address] [place] [address] Care Team Providers Care Upholstery Mechanic Name Role Phone Unavailable Primary Care Provider Unavailabl e Reason for Visit * Diagnostic Imaging (Routine) - Closed Specialty Diagnoses / Procedures Referred By Contac t Referred To Contact Procedures Breast Imaging [place] [address] [place] [address] Phone: tel: fax: Referral ID Status Reason Start Date Expiration Date Visits Re quested Visits Authorized [id number] Closed 05/12/2023 06/10/2024 1 1 Encounter Details Date Type Department Care Team (Late st Contact Info) Description 07/29/2016 Hospital Encounter [facility] Radiology [facility] [address] [place] [address] Social History Tobacco Use Types Packs/Day Years [...] on file Legal Sex Female 1:53 AM DELICATESSEN MANAGER Gender Identity Not on file Sexual [...] CDT) Impressions [facility] - 05/12/2023 1:55 PM DELICATESSEN MANAGER These images are for Reference purposes only and have not been reviewed by [facility] Radiology. ??There will be no report generated by a [facility] Radiologist. Narrative [facility] - 05/12/2023 1:55 PM DELICATESSEN MANAGER EXAMINATION: ??Images For Reference Purposes Only [...]
--- OUTSIDE RECORDS SUMMARY | 2024-06-20 05:40 | XMS_ITS | Clinical Summary ---
Author Organization [facility] Address [address] [place] [address] Phone Care Team Providers Care Neighborhood Service Center Director Name Role Phone Tuan Morrison MD Primary Care Provider +1- [phone] Allergies Active Allergy Reactions Criticality Noted Date Comments Erythromycin Hives High 02/11/2010 Levofloxacin Muscle Pain Low 01/05/2012 Omeprazole Palpitations High 01/23/2016 Penicillins Anaphylaxis High 02/11/2010 Sinutab Rash Low 02/11/2010 Sulfa (Sulfonamide Antibiotics) Diarrhea,Nausea and Vomiting Low 02/28/2023 Medications levothyroxine (SYNTHROID) 75 mcg Oral tablet Take 75 mcg by mouth daily. Active LACTOBAC/BIFIDOB AC/GLOB CA CON (ULTRA EFREM PLUS ORAL) Take by [...] Tuan Morrison MD Referring Provider: Tuan Morrison [address] [place] [address] Other: Problem Noted Date Diagnosed Date Multiple [...] of diagnosis: 01/20/2023 Diagnosis: LEFT ILC ER(+) CA(+) Her 2(-) Surgeon: Amaris Surgery: Medical Oncologist: [...] type: IDC, >1 cm ER: (-) neg CA: (-) neg Her2 nina: (not) amplified Grade: [...] on file Legal Sex Female 2:58 AM SPORTS THERAPIST Gender Identity Not on file Sexual Orientation Not on file Occupation Industry Job Start Date Job End Date Not on file Not on file Not on file Not on file Not on file Not on file Not on file Not on file Last Filed Vital Signs Vital Sign Reading Time Taken Comments Blood Pressure 149/79 06/07/2023 11:58 AM SPORTS THERAPIST Pulse 64 06/07/2023 11:58 AM SPORTS THERAPIST Temperature 36.3 ??C (97.3 ??F) 05/11/2023 12:[address] Respiratory Rate 18 05/11/2023 12:23 PM SPORTS THERAPIST Oxygen Saturation 94% 05/19/2023 9:42 AM SPORTS THERAPIST Inhaled Oxygen Concentration - - Weight 85.3 kg (188 lb 0.8 oz) 06/07/2023 11:58 AM SPORTS THERAPIST Height 170.2 cm (5' 7 ) 06/07/2023 11:58 AM SPORTS THERAPIST Body Mass Index 29.45 06/07/2023 11:58 AM SPORTS THERAPIST Plan of Treatment Health Maintenance Due Date [...] years Discontinued Medical Devices Implanted Type Area Mental Health Technician Device Identifier Shelf Expiration Date Model / Serial / Lot Replacer Clip Surgiclip Ii Myles 9.75in [id number] - [id number] Implanted:Qty: 1 on 02/28/2023 by Indiana Glez MD at [facility] Clip Left: Axilla [employer] - COVIDIEN 09/13/2027 [id number] / / [id number] Cataract Extraction With Iol-2009; Right Eye Right Eye Cataract Excision With Iol-01/2022 Insurance MEDICARE PART A AND B BCBS SUPP RX [facility] Medicare Part D RX [employer] Express RX [employer] PLANS (INTERNAL) [facility] Plans Advance Directives For more information, please contact: [phone] * Full Code (Latest Code Status on [...] 7:44 AM 02/27/2010 7:44 AM Care Teams Neighborhood Service Center Director Relationship Specialty Start Date End Date Tuan Morrison MD [address] [place] [address] PCP - General 03/25/15
--- OUTSIDE RECORDS SUMMARY | 2024-06-20 05:40 | XMS_ITS | Encounter Summary ---
Author Organization [facility] Address [address] [place] [address] Care Team Providers Care Financial Legal Assistant Name Role Phone Unavailable Primary Care Provider Unavailabl e Reason for Visit * Diagnostic Imaging (Routine) - Closed Specialty Diagnoses / Procedures Referred By Contac t Referred To Contact Diagnoses Malignant neoplasm of unspecified site of left female breast Procedures Breast Imaging Screening Outside Reference Mena Mansfield MD [address] [address] Phone: tel: fax: Mena Mansfield MD Phone: tel: fax: Referral ID Status Reason Start Date Expiration Date Visits Re quested Visits Authorized [id number] Closed 05/12/2023 06/10/2024 1 1 Encounter Details Date Type Department Care Team (Late st Contact Info) Description 08/01/2017 Hospital Encounter [facility] Radiology [facility] [address] [place] [address] Social History Tobacco Use Types Packs/Day [...] on file Legal Sex Female 1:53 AM CODE NUMBER STAMPER Gender Identity Not on file Sexual Orientation [...] CDT) Impressions [facility] - 05/12/2023 1:55 PM CODE NUMBER STAMPER These images are for Reference purposes only and have not been reviewed by [facility] Radiology. ??There will be no report generated by a [facility] Radiologist. Narrative [facility] - 05/12/2023 1:55 PM CODE NUMBER STAMPER EXAMINATION: ??Images For Reference Purposes Only us [...]
--- OUTSIDE RECORDS SUMMARY | 2024-06-20 05:40 | XMS_ITS | Clinical Summary ---
Author Organization [facility] [address] Address [address] [place] [address] Care Team Providers Care Hoop Riveter Name Role Phone Tuan Morrison MD Primary Care Provider +1- [phone] Allergies Active Allergy Reactions Criticality Noted Date [...] 1 tablet (75 mcg total) by mouth computer analyst before breakfast Active vitamin D3-vitamin K2 25 mcg (1,000 unit)-90 mcg tablet,disinte grating Take by mouth Active magnesium citrate 100 mg tablet Take 100 mg by mouth daily after lunch Active vit D3-vit H-qscxeyzln-jk ps [id number] pcup-xyu-jf-mg tablet Take by mouth Active cholecalcifero l [...] from 02/28/2023:Stage IA(pT2, pN0(sn), cM0, G2, ER+, OR+, HER2-) - Unsigned Primary osteoarthritis of left knee 10/27/2022 Encounters Date Type Department Care Team Description 03/22/2024 11:45 AM SEMI DRIVER Office Visit [facility] Oncology [address] [place] [address] Ismael Tejeda MD Malignant neoplasm [...] on file Legal Sex Female 1:53 AM SEMI DRIVER Gender Identity Not on file Sexual Orientation Not on file Obstetrics History Last Filed Vital Signs Vital Sign Reading Time Taken Comments Blood Pressure 145/80 03/22/2024 11:47 AM SEMI DRIVER Pulse 65 03/22/2024 11:47 AM SEMI DRIVER Temperature 36.1 ??C (97 ??F) 03/22/2024 11:47 AM SEMI DRIVER Respiratory Rate 18 12/15/2023 11:46 AM CDT Oxygen Saturation 96% 03/22/2024 11:47 AM SEMI DRIVER Inhaled Oxygen Concentration - - Weight 85.3 kg (188 lb) 03/22/2024 11:47 AM SEMI DRIVER Height 165.1 cm (5' 5 ) 03/22/2024 11:47 AM SEMI DRIVER Body Mass Index 31.28 03/22/2024 11:47 AM SEMI DRIVER Plan of Treatment Health Maintenance Due Date [...] Fall Risk Assessment 08/07/2024 08/08/2023 Insurance MEDICARE [facility] TRADITIONAL MEDICARE [facility] MEDICARE [facility] TRAD[facility] Advance Directives For more information, please contact: [phone] Documents on File Type Date Recorded Patient Firearms Model Maker Expl anation ADVANCE DIRECTIVE 08/08/2023 2:02 PM Power of Master Sheet Clerk-Medical Care Teams Hoop Riveter Relationship Specialty Start Date End Date Tuan Morrison MD [address] [place] [address] PCP - General Family Medicine 09/11/20
[2024-06-20 05:41] LABS: Troponin I < 0.012 ng/mL (0.000-0.034)
[2024-06-20 06:14] LABS: D Dimer 0.56 ug/mL (<0.48)
[2024-06-20 06:22] LABS: NT Pro B Type Natriuretic Pept 290 pg/mL (19.9-100)
[2024-06-20 06:50] LABS: Add Urine Microscopic? YES; Appearance Urine Clear (Clear); Bacteria Urine None Seen /hpf; Bilirubin Urine Negative (Negative); Blood Urine Negative (Negative); Color Urine Yellow (Yellow); Glucose Urine UA Negative (Negative); Ketones Urine Negative (Negative); Leukocyte Esterase Ur 2+ LEU/UL (Negative); Nitrate Urine Negative (Negative); Non Pathogenic Casts 0-2; Protein Urine Negative (Negative); RBC Urine 0-2 /hpf (0-2); Specific Grav Ur 1.021 (1.001-1.035); Squamous Epithelial Cell Urine Occasional /hpf (Few); Urobilinogen Urine 0.2 mg/dL (<2.0); WBC Urine 51-100 /hpf (0-3)
[2024-06-20] MEDS: SULFAMETHOXAZOLE/TRIMETHOPRIM 800/160 MG DS TABLET 1 TAB PO (09:13)
== END 2024-06-20 09:34 | disposition home or self-care (01) ==
PROVIDERS: Emergency Provider Student in an Organized Health Care Education/Training Program; PCP Family Medicine
DX: N39.0 Urinary tract infection, site not specified (principal); R55 Syncope and collapse; Z20.822 Contact with and (suspected) exposure to COVID-19; I25.10 Atherosclerotic heart disease of native coronary artery without angina pectoris; Z85.3 Personal history of malignant neoplasm of breast; Z90.12 Acquired absence of left breast and nipple; I44.0 Atrioventricular block, first degree; I45.2 Bifascicular block
CPT/HCPCS: 36415; 70496; 70498; 71046; 71275; 80053; 81001; 83880; 84484; 85025; 85380; 87086; 87637; 93005; 96360; 99284; A9270; Q9967

== ENCOUNTER 2025-01-10 20:25 | Emergency (ER) | payer MEDICARE, BC, SELFPAY ==
--- OUTSIDE RECORDS SUMMARY | 2016-07-29 | XMS_ITS | Encounter Summary ---
Author Organization [facility] Healthcare Address [address] [place] [address] Care Team Providers Care Executive Chairman Of The Board Name Role Phone Unavailable Primary Care Provider Unavailabl e Reason for Visit * Diagnostic Imaging (Routine) - Closed Specialty Diagnoses / Procedures Referred By Contac t Referred To Contact Procedures Breast Imaging [place] [address] [place] [address] Phone: tel: fax: Referral ID Status Reason Start Date Expiration Date Visits Re quested Visits Authorized [id number] Closed 05/12/2023 06/10/2024 1 1 Encounter Details Date Type Department Care Team (Late st Contact Info) Description 07/29/2016 Hospital Encounter [facility] [address] [place] [address] Social History Tobacco Use Types Packs/Day Years Used Date Smoking Tobacco: Never Passive Smoke Exposure: Past Smokeless Tobacco: Never AUDIT-C Answer Date Recorded Q1: How often do you have a drink containing alc ohol? 2-4 times a month 08/08/2023 Q2: How many drinks containi ng alcohol do you have on a typical day when you are drinking? 1 or 2 08/08/2023 Q3: How often do you have si x or more drinks on one occasion? Never 08/08/2023 Personal Safety Answer Date Recorded Have you ever been in or are you currently in a harmful physical or emotional relationship or is someone making you feel afraid or unsafe? Denies 08/08/2023 Comments Unknown Sex and Gender Information Value Date Recorded Sex Assigned at Not on file Legal Sex Female 1:53 AM CUPOLA PATCHER Gender Identity Not on file Sexual Orientation Not on file documented as of this encounter Functional Status * AUDIT-C Score Answer Date of Assessment Author 2 08/08/2023 1:03 PM CDT Sarah Juarez RN * Question Answer Date of Assessment Author Q1: How often do you have a drink containing alcohol? 2-4 times a month 08/08/2023 1:03 PM CDT Zack Juarez ra, RN Q2: How many drinks containing alcohol do you have on a typical day when you are drinking? 1 or 2 08/08/2023 1:03 PM CDT Zack Juarez ra, RN Q3: How often do you have six or more drinks on one occasion? Never 08/08/2023 1:03 PM CDT Zack Juarez ra, RN documented as of this encounter Plan of Treatment Not on file documented as of this encounter Procedures Procedure Name Priority Date/Time Associated Diagnosis Comments BREAST IMAGING MG SCREENING OUTSIDE REFERENCE Routine 07/29/2016 12:00 AM CDT documented in this encounter Results * Breast Imaging Screening Outside Reference (07/29/2016 12:00 AM CDT) Impressions [facility] - 05/12/2023 1:55 PM CUPOLA PATCHER These images are for Reference purposes only and have not been reviewed by [facility]. There will be no report generated by a [facility] Radiologist. Narrative [facility] - 05/12/2023 1:55 PM CUPOLA PATCHER EXAMINATION: Images For Reference Purposes Only us Mena Mansfield MD IMG MAMMO PROCEDURES Fi nal Result [facility] documented in this encounter Visit Diagnoses Not on filedocumented in this encounter Additional Health Concerns Infection Onset Date Last Indicated Resolved Time Exposure, COVID-19 Comment:08/08/2023 IP Review: per RN, spoke with , no known COVID exposures, tested negative on 08/03. Frances Cook RN Added automatically based on COVID19 lab answers indicating exposure risk 08/04/2023 08/04/2023 08/08/2023 10:54 AM CDT COVID: Suspected 08/04/2023 08/04/2023 08/04/2023 11:12 AM CDT COVID: Suspected 08/04/2023 08/04/2023 08/04/2023 5:38 PM CDT documented as of this encounter
--- OUTSIDE RECORDS SUMMARY | 2016-07-29 | XMS_ITS | Encounter Summary ---
Author Organization [facility] Healthcare Address [address] [place] [address] Care Team Providers Care Repairer Welding Equipment Name Role Phone Unavailable Primary Care Provider Unavailabl e Reason for Visit * Diagnostic Imaging (Routine) - Closed Specialty Diagnoses / Procedures Referred By Contac t Referred To Contact Procedures Breast Imaging [place] [address] [place] [address] Phone: tel: fax: Referral ID Status Reason Start Date Expiration Date Visits Re quested Visits Authorized [id number] Closed 05/12/2023 06/10/2024 1 1 Encounter Details Date Type Department Care Team (Late st Contact Info) Description 07/29/2016 Hospital Encounter [facility] Radiology [facility] [address] [place] [address] Social History Tobacco Use Types Packs/Day Years [...] on file 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 There will be no report generated by a [facility] Radiologist. Narrative [facility] - 05/12/2023 1:55 PM SOFTWARE PROGRAMMER EXAMINATION: Images For Reference Purposes Only us [...]
--- OUTSIDE RECORDS SUMMARY | 2017-08-01 | XMS_ITS | Encounter Summary ---
Author Organization [facility] Healthcare Address [address] [place] [address] Care Team Providers Care Director Print Name Role Phone Unavailable Primary Care Provider Unavailabl e Reason for Visit * Diagnostic Imaging (Routine) - Closed Specialty Diagnoses / Procedures Referred By Contac t Referred To Contact Diagnoses Malignant neoplasm of unspecified site of left female breast Procedures Breast Imaging Screening Outside Reference Mena Mansfield MD [address] [address] Phone: tel: fax: Mena Mansfield MD Phone: tel: fax: Referral ID Status Reason Start Date Expiration Date Visits Re quested Visits Authorized [id number] Closed 05/12/2023 06/10/2024 1 1 Encounter Details Date Type Department Care Team (Late st Contact Info) Description 08/01/2017 Hospital Encounter [facility] [address] [place] [address] Social History Tobacco Use Types Packs/Day Years [...] on file Legal Sex Female 1:53 AM 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 2-4 times a month 08/08/2023 1:03 PM EDISONT Zack Juarez ra, RN Q2: How many drinks containing alcohol do you have on a typical day when you are drinking? 1 or 2 08/08/2023 1:03 PM EDISONT Zack Juarez ra, RN Q3: How often do you have six or more drinks on one occasion? Never 08/08/2023 1:03 PM EDISONT Zack Juarez ra, RN documented as of this encounter Plan of Treatment Not on file documented as of this encounter Procedures Procedure Name Priority Date/Time Associated Diagnosis Comments BREAST IMAGING MG SCREENING OUTSIDE REFERENCE Routine 08/01/2017 12:00 AM CDT documented in this encounter Results * Breast Imaging Screening Outside Reference (08/01/2017 12:00 AM CDT) Impressions [facility] - 05/12/2023 1:55 PM SQL BI DEVELOPER These images are for Reference purposes only and have not been reviewed by [facility] Radiology. There will be no report generated by a [facility] Radiologist. Narrative [facility] - 05/12/2023 1:55 PM SQL BI DEVELOPER EXAMINATION: Images For Reference Purposes Only us [...]
--- OUTSIDE RECORDS SUMMARY | 2017-08-01 | XMS_ITS | Encounter Summary ---
Author Organization [facility] Healthcare Address [address] [place] [address] Care Team Providers Care Mortgage Clerk Name Role Phone Unavailable Primary Care Provider Unavailabl e Reason for Visit * Diagnostic Imaging (Routine) - Closed Specialty Diagnoses / Procedures Referred By Contac t Referred To Contact Diagnoses Malignant neoplasm of unspecified site of left female breast Procedures Breast Imaging Screening Outside Reference Mena Mansfield MD [address] [address] Phone: tel: fax: Mena Mansfield MD Phone: tel: fax: Referral ID Status Reason Start Date Expiration Date Visits Re quested Visits Authorized [id number] Closed 05/12/2023 06/10/2024 1 1 Encounter Details Date Type Department Care Team (Late st Contact Info) Description 08/01/2017 Hospital Encounter [facility] [address] [place] [address] Social History Tobacco Use Types Packs/Day [...] on file Legal Sex Female 1:53 AM OFFICE SPEC Gender Identity Not on file Sexual Orientation [...] CDT) Impressions [facility] - 05/12/2023 1:55 PM OFFICE SPEC These images are for Reference purposes only and have not been reviewed by [facility]. There will be no report generated by a [facility] Radiologist. Narrative [facility] - 05/12/2023 1:55 PM OFFICE SPEC EXAMINATION: Images For Reference Purposes Only us [...]
--- OUTSIDE RECORDS SUMMARY | 2018-08-08 | XMS_ITS | Encounter Summary ---
Author Organization [facility] Healthcare Address [address] [place] [address] Care Team Providers Care Professor Of Geology Name Role Phone Unavailable Primary Care Provider Unavailabl e Reason for Visit * Diagnostic Imaging (Routine) - Closed Specialty Diagnoses / Procedures Referred By Contac t Referred To Contact Diagnoses Malignant neoplasm of left female breast, unspecified estrogen receptor status, unspecified site of breast (HCC) Procedures Breast Imaging Screening Outside Reference Mena Mansfield MD [address] [place] [address] Phone: tel: fax: Referral ID Status Reason Start Date Expiration Date Visits Re quested Visits Authorized [id number] Closed 05/12/2023 06/10/2024 1 1 Encounter Details Date Type Department Care Team (Late st Contact Info) Description 08/08/2018 Hospital Encounter [facility]iology [facility] [address] [place], [place] [id number] Social History Tobacco Use Types Packs/Day Years [...] on file Legal Sex Female 1:53 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 There will be no report generated by a [facility] Radiologist. Narrative RAD_M[facility]MO[facility] - 05/12/2023 2:05 PM JOB PRINTER APPRENTICE EXAMINATION: Images For Reference Purposes Only us [...]
--- OUTSIDE RECORDS SUMMARY | 2018-08-08 | XMS_ITS | Encounter Summary ---
Author Organization [facility] Healthcare Address [address] [place] [address] Care Team Providers Care Plate Corrector Name Role Phone Unavailable Primary Care Provider Unavailabl e Reason for Visit * Diagnostic Imaging (Routine) - Closed Specialty Diagnoses / Procedures Referred By Contac t Referred To Contact Diagnoses Malignant neoplasm of left female breast, unspecified estrogen receptor status, unspecified site of breast (HCC) Procedures Breast Imaging Screening Outside Reference Mena Mansfield MD [address] [place] [address] Phone: tel: fax: Referral ID Status Reason Start Date Expiration Date Visits Re quested Visits Authorized [id number] Closed 05/12/2023 06/10/2024 1 1 Encounter Details Date Type Department Care Team (Late st Contact Info) Description 08/08/2018 Hospital Encounter [facility] [address] [place], [place] [phone] Social History Tobacco Use Types Packs/Day Years [...] on file Legal Sex Female 1:53 AM COMMISSIONER CONSERVATION OF RESOURCES Gender Identity Not on file Sexual Orientation [...] CDT) Impressions [facility] - 05/12/2023 2:05 PM COMMISSIONER CONSERVATION OF RESOURCES These images are for Reference purposes only and have not been reviewed by [facility] Radiology. There will be no report generated by a [facility] Radiologist. Narrative RAD_M[facility]MO[facility] - 05/12/2023 2:05 PM COMMISSIONER CONSERVATION OF RESOURCES EXAMINATION: Images For Reference Purposes Only us [...]
--- OUTSIDE RECORDS SUMMARY | 2019-10-02 | XMS_ITS | Encounter Summary ---
Author Organization [facility] Healthcare Address [address] [place] [address] Care Team Providers Care Vice Chancellor Name Role Phone Unavailable Primary Care Provider Unavailabl e Reason for Visit * Diagnostic Imaging (Routine) - Closed Specialty Diagnoses / Procedures Referred By Contac t Referred To Contact Procedures Breast Imaging Screening Outside Reference Mena Mansfield MD [address] [place] [address] Phone: tel: fax: Referral ID Status Reason Start Date Expiration Date Visits Re quested Visits Authorized [id number] Closed 05/12/2023 06/10/2024 1 1 Encounter Details Date Type Department Care Team (Late st Contact Info) Description 10/02/2019 Hospital Encounter [facility] [address] [place] [address] Social History Tobacco Use Types Packs/Day Years [...] on file Legal Sex Female 1:53 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 There will be no report generated by a [facility] Radiologist. Narrative RAD_M[facility]MO[facility] - 05/12/2023 1:55 PM CEO & BOARD DIRECTOR EXAMINATION: Images For Reference Purposes Only us [...]
--- OUTSIDE RECORDS SUMMARY | 2019-10-02 | XMS_ITS | Encounter Summary ---
Author Organization [facility] Healthcare Address [address] [place] [address] Care Team Providers Care Parole Agent Name Role Phone Unavailable Primary Care Provider Unavailabl e Reason for Visit * Diagnostic Imaging (Routine) - Closed Specialty Diagnoses / Procedures Referred By Contac t Referred To Contact Procedures Breast Imaging Screening Outside Reference Mena Mansfield MD [address] [place] [address] Phone: tel: fax: Referral ID Status Reason Start Date Expiration Date Visits Re quested Visits Authorized [id number] Closed 05/12/2023 06/10/2024 1 1 Encounter Details Date Type Department Care Team (Late st Contact Info) Description 10/02/2019 Hospital Encounter [facility]iology [facility] [address] [place] [address] Social History Tobacco Use Types Packs/Day Years [...] on file Legal Sex Female 1:53 AM PRESIDENT [place] Gender Identity Not on file Sexual Orientation [...] CDT) Impressions [facility] - 05/12/2023 1:55 PM PRESIDENT [place] These images are for Reference purposes only and have not been reviewed by [facility] Radiology. There will be no report generated by a [facility] Radiologist. Narrative RAD_M[facility]MO[facility] - 05/12/2023 1:55 PM PRESIDENT [place] EXAMINATION: Images For Reference Purposes Only us [...]
--- OUTSIDE RECORDS SUMMARY | 2020-10-09 | XMS_ITS | Encounter Summary ---
Author Organization [facility] Healthcare Address [address] [place] [address] Care Team Providers Care Plating Operator Name Role Phone Tuan Morrison MD Primary Care Provider +1- [phone] Reason for Visit * Diagnostic Imaging (Routine) - Closed Specialty Diagnoses / Procedures Referred By Contac t Referred To Contact Diagnoses Malignant neoplasm of unspecified site of left female breast Procedures Breast Imaging [place] [address] [place] [address] Phone: tel: fax: Mena Mansfield MD Phone: tel: fax: Referral ID Status Reason Start Date Expiration Date Visits Re quested Visits Authorized [id number] Closed 05/12/2023 06/10/2024 1 1 Encounter Details Date Type Department Care Team (Late st Contact Info) Description 10/09/2020 Hospital Encounter [facility] [address] [place] [address] Social History Tobacco Use Types Packs/Day Years [...] on file Legal Sex Female 1:53 AM RELEASE COORDINATOR Gender Identity Not on file Sexual Orientation Not on file documented as of this encounter Functional Status * AUDIT-C Score Answer Date of Assessment Author 2 08/08/2023 1:03 PM EDISONT Sarah Juarez RN * Question Answer Date of Assessment Author Q1: How often do you have a drink containing alcohol? 2-4 times a month 08/08/2023 1:03 PM EDISONT Laura Juarez RN Q2: How many drinks containing alcohol [...] BREAST IMAGING MG SCREENING OUTSIDE REFERENCE Routine 10/09/2020 12:00 AM CDT documented in this encounter Results * Breast Imaging Screening Outside Reference (10/09/2020 12:00 AM CDT) Impressions RAD_MAMMO_[facility] - 05/12/2023 2:05 PM RELEASE COORDINATOR These images are for Reference purposes only and have not been reviewed by [facility] Radiology. There will be no report generated by a [facility] Radiologist. Narrative RAD_MAMMO_[facility] - 05/12/2023 2:05 PM RELEASE COORDINATOR EXAMINATION: Images For Reference Purposes Only us Mena Mansfield MD IMG MAMMO PROCEDURES Fi nal Result RAD_MAMMO_[facility] documented in this encounter Visit Diagnoses Not [...] PM CDT documented as of this encounter Care Teams Plating Operator Relationship Specialty Start Date End Date Tuan Morrison MD [address] [place] [address] PCP - General Family Medicine 09/11/20 documented as of this encounter
--- OUTSIDE RECORDS SUMMARY | 2020-10-09 | XMS_ITS | Encounter Summary ---
Author Organization [facility] Healthcare Address [address] [place] [address] Care Team Providers Care Strawhat Blocking Operator Name Role Phone Tuan Morrison MD Primary Care Provider +1- [phone] Reason for Visit * Diagnostic Imaging (Routine) - Closed Specialty Diagnoses / Procedures Referred By Contac t Referred To Contact Diagnoses Malignant neoplasm of unspecified site of left female breast Procedures Breast Imaging [place] [address] [place] [address] Phone: tel: fax: Mena Mansfield MD Phone: tel: fax: Referral ID Status Reason Start Date Expiration Date Visits Re quested Visits Authorized [id number] Closed 05/12/2023 06/10/2024 1 1 Encounter Details Date Type Department Care Team (Late st Contact Info) Description 10/09/2020 Hospital Encounter [facility] [address] [place] [address] Social History Tobacco Use Types Packs/Day Years [...] on file Legal Sex Female 1:53 AM 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 There will be no report generated by a [facility] Radiologist. Narrative RAD_MAMMO[facility] - 05/12/2023 2:05 PM ARCHITECTURAL ENGINEERING TEACHER EXAMINATION: Images For Reference Purposes Only us [...] documented as of this encounter Care Teams Strawhat Blocking Operator Relationship Specialty Start Date End Date Tuan Morrison MD [address] [place] [address] PCP - General Family Medicine 09/11/20 documented as of this encounter
[2025-01-10] VITALS (9 sets, daily range): BP systolic 120–145; BP diastolic 62–96; PULSE 68–82; RESP 13–17; TEMP 36.3; O2SAT 93–96
--- NOTE | ~2025-01-10 | US_ITS ---
EXAMINATION:US venous doppler LE RT INDICATION:History of DVT. TECHNIQUE: Multiple grayscale, color flow and Doppler images of the right lower extremity deep venous systems were obtained and reviewed. COMPARISON:No prior studies for comparison. FINDINGS: The common femoral, superficial femoral veins demonstrate normal respiratory variation, augmentation and compressibility. There is deep venous thrombosis of the right popliteal and gastrocnemius veins. Color flow is also seen within the posterior tibial, peroneal, greater saphenous and profunda veins. IMPRESSION: 1: Deep venous thrombosis of the right popliteal and gastrocnemius veins. Reviewed, dictated and finalized at location O.
--- OUTSIDE RECORDS SUMMARY | 2025-01-10 20:26 | XMS_ITS | Encounter Summary ---
Author Organization [facility] Address [address] [place] [address] Care Team Providers Care Navy Material Inspector Name Role Phone Tuan Morrison MD Primary Care Provider +1- [phone] Encounter Details Date Type Department Care Team (Late st Contact Info) Description 08/21/2003 Outpatient Historical [facility] Support Serv. (Adt Cardiology-[facility]) [address] [place] [address] Ingrid Pierre MD Social History Tobacco Use Types Packs/Day Years Used Date Smoking Tobacco: Never Assessed Comments Unknown Sex and Gender Information Value Date Recorded Sex Assigned at Not on file Legal Sex Female 2:58 AM SALT WASHER Gender Identity Not on file Sexual Orientation Not on file documented as of this encounter Plan of Treatment Not on file documented as of this encounter Visit Diagnoses Not on filedocumented in this encounter Additional Health Concerns Infection Onset Date Last Indicated Resolved Time R/O COVID-19 02/04/2023 02/04/2023 02/04/2023 2:27 AM CDT documented as of this encounter Care Teams Navy Material Inspector Relationship Specialty Start Date End Date Tuan Morrison MD [address] [place] [address] PCP - General 03/25/15 documented as of this encounter
--- OUTSIDE RECORDS SUMMARY | 2025-01-10 20:26 | XMS_ITS | Encounter Summary ---
Author Organization [facility] Address [address] Kramer: Epic Prelude ADT [place] [address] Care Team Providers Care Automation Sales Manager Name Role Phone Tuan Morrison MD Primary Care Provider +1- [phone] Encounter Details Date Type Department Care Team (Late st Contact Info) Description 02/01/1992 Outpatient Historical Kofi Gallardo MD [address] [facility] [address] [place] [address] Social History Tobacco Use Types Packs/Day Years Used Date Smoking Tobacco: Never Assessed Comments Unknown Sex and Gender Information Value Date Recorded Sex Assigned at Not on file Legal Sex Female 2:58 AM APRON WORKER Gender Identity Not on file Sexual Orientation Not on file documented as of this encounter Plan of Treatment Not on file documented as of this encounter Visit Diagnoses Not on filedocumented in this encounter Additional Health Concerns Infection Onset Date Last Indicated Resolved Time R/O COVID-19 02/04/2023 02/04/2023 02/04/2023 2:27 AM CDT documented as of this encounter Care Teams Automation Sales Manager Relationship Specialty Start Date End Date Tuan Morrison MD [address] [place] [address] PCP - General 03/25/15 documented as of this encounter
--- OUTSIDE RECORDS SUMMARY | 2025-01-10 20:26 | XMS_ITS | Encounter Summary ---
Author Organization [facility] Address [address] [place] [address] Phone Care Team Providers Care Sustainability Consultant Name Role Phone Tuan Morrison MD Primary Care Provider +1- [phone] Encounter Details Date Type Department Care Team (Late st Contact Info) Description 01/04/2025 Results Follow-Up [facility] Medicine Surgery [address] [facility] [address] [place] [address] Kelley Snyder NP [address] [facility] [id number] [place] [address] Screening Mammogram Right W Santiago Unilateral Only Social History Tobacco Use Types Packs/Day Years [...] on file Legal Sex Female 1:53 AM PEST MANAGEMENT SUPERVISOR Gender Identity Not on file Sexual Orientation Not on file documented as of this encounter Plan of Treatment Not on file documented as of this encounter Visit Diagnoses Not on filedocumented in this encounter Care Teams Sustainability Consultant Relationship Specialty Start Date End Date Tuan Morrison MD [address] [place] [address] PCP - General Family Medicine 09/11/20 documented as of this encounter
--- OUTSIDE RECORDS SUMMARY | 2025-01-10 20:26 | XMS_ITS | Encounter Summary ---
Author Organization [employer] Address [address] [place] [address] Care Team Providers Care Traveling Freight Agent Name Role Phone Tuan Morrison MD Primary Care Provider +1- [phone] Encounter Details Date Type Department Care Team (Late st Contact Info) Description 08/21/2003 Emergency [facility] STAbdi Aparicio MD NO ADDRESS ON FILE Er, Authorized P NO ADDRESS ON FILE SPRAIN OF NECK (Primary Dx) Social History Tobacco Use Types Packs/Day Years Used Date Smoking Tobacco: Never Assessed Comments Unknown Sex and Gender Information Value Date Recorded Sex Assigned at Not on file Legal Sex Female 2:58 AM BAD WORK GATHERER Gender Identity Not on file Sexual Orientation Not on file documented as of this encounter Plan of Treatment Not on file documented as of this encounter Visit Diagnoses Diagnosis Sprain of neck- Primary documented in this encounter Additional Health Concerns Infection Onset Date Last Indicated Resolved Time R/O COVID-19 02/04/2023 02/04/2023 02/04/2023 2:27 AM CDT documented as of this encounter Care Teams Traveling Freight Agent Relationship Specialty Start Date End Date Tuan Morrison MD [address] [place] [address] PCP - General 03/25/15 documented as of this encounter
--- OUTSIDE RECORDS SUMMARY | 2025-01-10 20:26 | XMS_ITS | Encounter Summary ---
Author Organization [facility] Address [address] Kramer: Epic Prelude ADT [place] [address] Care Team Providers Care Public Relations Supervisor Name Role Phone Tuan Morrison MD Primary Care Provider +1- [phone] Encounter Details Date Type Department Care Team (Late st Contact Info) Description 05/18/1990 Outpatient Historical Kofi Gallardo MD [address] [facility] [address] [place] [address] Social History Tobacco Use Types Packs/Day Years Used Date Smoking Tobacco: Never Assessed Comments Unknown Sex and Gender Information Value Date Recorded Sex Assigned at Not on file Legal Sex Female 2:58 AM PEPPER CUTTER Gender Identity Not on file Sexual Orientation Not on file documented as of this encounter Plan of Treatment Not on file documented as of this encounter Visit Diagnoses Not on filedocumented in this encounter Additional Health Concerns Infection Onset Date Last Indicated Resolved Time R/O COVID-19 02/04/2023 02/04/2023 02/04/2023 2:27 AM CDT documented as of this encounter Care Teams Public Relations Supervisor Relationship Specialty Start Date End Date Tuan Morrison MD [address] [place] [address] PCP - General 03/25/15 documented as of this encounter
--- OUTSIDE RECORDS SUMMARY | 2025-01-10 20:26 | XMS_ITS | Encounter Summary ---
[facility] Organization [facility] Address [address] Kramer: Epic Prelude ADT MERARY CALIX [address] Care Team Providers Care Publications Manager Name Role Phone Tuan Morrison MD Primary Care Provider +1- [phone] Encounter Details Date Type Department Care Team (Late st Contact Info) Description 12/19/1989 Outpatient Historical Kofi Gallardo MD [address] [facility] [address] [place] [address] Social History Tobacco Use Types Packs/Day Years Used Date Smoking Tobacco: Never Assessed Comments Unknown Sex and Gender Information Value Date Recorded Sex Assigned at Not on file Legal Sex Female 2:58 AM BRAILLE CODER Gender Identity Not on file Sexual Orientation Not on file documented as of this encounter Plan of Treatment Not on file documented as of this encounter Visit Diagnoses Not on filedocumented in this encounter Additional Health Concerns Infection Onset Date Last Indicated Resolved Time R/O COVID-19 02/04/2023 02/04/2023 02/04/2023 2:27 AM CDT documented as of this encounter Care Teams Publications Manager Relationship Specialty Start Date End Date Tuan Morrison MD [address] [place] [address] PCP - General 03/25/15 documented as of this encounter
--- OUTSIDE RECORDS SUMMARY | 2025-01-10 20:26 | XMS_ITS | Encounter Summary ---
Author Organization [facility] Address [address] Kramer: Epic Prelude ADT MER[place]IX [address] Care Team Providers Care Information Technology Security Analyst Name Role Phone Tuan Morrison MD Primary Care Provider +1- [phone] Encounter Details Date Type Department Care Team (Late st Contact Info) Description 01/06/1993 Outpatient Historical Kofi Gallardo MD [address] [facility] [address] [place] [address] Social History Tobacco Use Types Packs/Day Years Used Date Smoking Tobacco: Never Assessed Comments Unknown Sex and Gender Information Value Date Recorded Sex Assigned at Not on file Legal Sex Female 2:58 AM OVERLOCK SEWING MACHINE OPERATOR Gender Identity Not on file Sexual Orientation Not on file documented as of this encounter Plan of Treatment Not on file documented as of this encounter Visit Diagnoses Not on filedocumented in this encounter Additional Health Concerns Infection Onset Date Last Indicated Resolved Time R/O COVID-19 02/04/2023 02/04/2023 02/04/2023 2:27 AM CDT documented as of this encounter Care Teams Information Technology Security Analyst Relationship Specialty Start Date End Date Tuan Morrison MD [address] [place] [address] PCP - General 03/25/15 documented as of this encounter
--- OUTSIDE RECORDS SUMMARY | 2025-01-10 20:26 | XMS_ITS | Clinical Summary ---
Author Organization [facility] Address [address] [place] [address] Care Team Providers Care Automatic Lump Making Machine Tender Name Role Phone Tuan Morrison MD Primary Care Provider +1- [phone] Damon Prescott MD Unavailable [phone] Source Comments [facility],non-owned Affiliates and Associated Physician Practices is amultiple site organization consisting of ambulatory clinics and hospital sitesin [place], [place], [place] and [place]. This disclosure is being madepursuant to the Care Everywhere program and may not contain all information available regarding this patient. Last updated 18.[facility] Allergies Active Allergy Reactions Criticality Noted Date Comments Azithromycin Unknown Low 03/09/2022 [facility] Non-Aspirin Allergy Rash Medium 02/11/2010 Erythromycin Urticaria,Rash High 05/16/1967 Levofloxacin Dizziness,Unknown,Ot her,Swell ing Medium 01/05/2012 Omeprazole Palpitations,Unknown High 01/23/2016 Penicillins Anaphylaxis High 02/11/2010 Rosuvastatin Unknown,Other High 01/04/2017 Sulfa Drugs Diarrhea,Nausea and/ or Vomiting Low 02/28/2023 Medications * Be aware that medications may not be up to date on this document. Alwaysverify current medications with the patient. Synthroid 75 MCG tablet Take 1 (one) tablet by mouth once daily Active vitamin D3 (Cholecalcifero l) 125 MCG (5000 UT) capsule Take 1 (one) capsule by mouth once daily Active Bacillus Coagulans-Inuli n (Probiotic) 1-250 BILLION-MG CAPS 5 Active cyanocobalamin (Vitamin B-12) injection Inject into muscle every 30 days Active famotidine (Pepcid) 10 MG tablet Take by mouth as needed for Heartburn Active acetaminophen (Tylenol) 500 MG tablet Take 1 (one) tablet by mouth every 6 hours as needed Active Active Problems Problem Noted Date Diagnosed Date Status post total left knee replacement 08/03/19 Encounters Date Type Department Care Team Description 12/06/2024 4:00 PM CDT Office Visit [facility] [address] [place] [address], [address] [phone] Edinson Denise MD History of total left knee replacement (Primary Dx) 11/14/[address], [address] [phone] Edinson Denise MD Refill Request 10/11/2024 4:40 PM CDT Office Visit [address], [address] [phone] Edinson Denise MD Aftercare following left knee joint replacement surgery (Primary Dx) from Last 3 Months Immunizations Immunization Administration Dates Next Due INFLUENZA VACCINE, ADJUVANTE D, QUADR. (FLUAD QUADRIVALENT; 65Y+) (AIIV4) 08/03/2024 Social History Tobacco Use Types Packs/Day Years Used Date Smoking Tobacco: Never Smokeless Tobacco: Never Tobacco Cessation:Counseling Given: Not Answered Alcohol Use Standard Drinks/Week Comments Yes 2 (1 standard drink = 0.6 oz pur e alcohol) Overall Financial Resource Strain (CARDIA) Answe r Date Recorded How hard is it for you to pa y for the very basics like food, housing, medical care, and heating? Not hard at all 08/02/2024 PHQ-2 Answer Date Recorded Patient Health Questionnaire-2 Score 2 09/13/2024 [facility] - Occupational Stress Questionnaire Answer Date Recorded Do you feel stress - tense, restless, nervous, or anxious, or unable to sleep at night because your mind is troubled all the time - these days? Not at all 08/02/2024 Hunger Vital Sign Answer Date Recorded Within the past 12 months, y ou worried that your food would run out before you got the money to buy more. Never true 03/20/20 25 Within the past 12 months, t he food you bought just didn't last and you didn't have money to get more. Never true 08/02/2024 PRAPARE - Transportation Answer Date Re corded In the past 12 months, has l ack of transportation kept you from medical appointments or from getting medications? No 07/15 In the past 12 months, has l ack of transportation kept you from meetings, work, or from getting things needed for daily living? No 08/02/2024 Housing Stability Vital Sign Answer Gurpreet e Recorded In the last 12 months, was t here a time when you were not able to pay the mortgage or rent on time? No 08/02/2024 In the past 12 months, how m any times have you moved where you were living? 1 08/02/2024 At [facility] time in the [facility], were you homeless or living in a [facility] (including now)? No 08/02/2024 Comments No Sex and Gender Information Value Date Recorded Sex Assigned at Female 05/01/2024 6:42 PM FACILITY MANAGER Legal Sex Female 6:16 AM FACILITY MANAGER Gender Identity Female 05/01/2024 6:42 PM FACILITY MANAGER Sexual Orientation Bisexual 05/01/2024 6: 42 PM FACILITY MANAGER Last Filed Vital Signs Vital Sign Reading Time Taken Comments Blood Pressure 136/77 08/03/2024 9:30 AM CDT sit ting Pulse 85 08/03/2024 9:30 AM CDT Temperature 36.5 C (97.7 F) 08/03/2024 8:30 AM CDT Respiratory Rate 16 08/03/2024 8:30 AM CDT Oxygen Saturation 91% 08/03/2024 9:30 AM CDT Inhaled Oxygen Concentration - - Weight 86.2 kg (190 lb) 12/06/2024 3:59 PM CDT Height 170.2 cm (5' 7) 12/06/2024 3:59 PM CDT Body Mass Index 29.76 12/06/2024 3:59 PM CDT Plan of Treatment Health Maintenance Due Date Last Done Comments BONE DENSITY TESTING 1940 MEDICARE AWV 12 MONTHS 1940 DTAP/TDAP/TD VACCINES (1 - Tdap) 10/29/1958 PNEUMOCOCCAL VACCINE 50+ (1 of 1 - PCV) 10/29/1989 ZOSTER VACCINE (1 of 2) 10/29/1989 Respiratory Syncytial Virus (RSV) Vaccine Pt: or over 60 yrs (1 - 1-dose 75+ series) 10/29/2014 COVID-19 VACCINE ( - 2023-2 5 season) 2024 INFLUENZA VACCINE (#1) 2025 , 04/29/2022 DEPRESSION SCREENING Completed 05/29/2024 HEPATITIS B VACCINE Aged Out No longe r eligible based on patient's age to complete this topic HIB VACCINE Aged Out No longer eligi ble based on patient's age to complete this topic HPV VACCINE Aged Out No longer eligi ble based on patient's age to complete this topic MENINGOCOCCAL (Group B) VACCINE SHARED DECISION-MAKING Aged Out No longer eligible based on patient's age to complete this topic MENINGOCOCCAL GROUPS A/C/Y/W VACCINE Aged Out No longer eligible b ased on patient's age to complete this topic Medical Devices Implanted Type Area Sizer Machine Device Identifier Shelf Expiration Date Model / Serial / Lot Cmnt Bone Plc R 40gm Grn Implanted:Qty: 1 on 08/02/2024 by Edinson Denise MD at [facility] Left: Knee [employer] 09/12/2026 [id number] / / [id number] Cmnt Bone Plc R 40gm Grn Implanted:Qty: 1 on 08/02/2024 by Edinson Denise MD at [facility] Left: Knee [employer] 07/13/2026 [id number] / / [id number] Cmpnt Ptlr Std 28mm 3 Pg Kn Ser A Implanted:Qty: 1 on 08/02/2024 by Edinson Denise MD at [facility] Left: Knee [employer] 07/23/2029 [id number] / / [id number] Tray Tib 71mm Kn Cocr I Beam Implanted:Qty: 1 on 08/02/2024 by Edinson Denise MD at [facility] Left: Knee [employer] 04/30/2034 [id number] / / [id number] Cmpnt Fem Kn Lt Cr Cmnt Prm Vngrd Intlk Implanted:Qty: 1 on 08/02/2024 by Edinson Denise MD at [facility] Left: Knee [employer] 05/26/2034 [id number] / / [id number] Brng 25g91pb Vngrd Vivacit-E Kn Ant Stab Implanted:Qty: 1 on 08/02/2024 by Edinson Denise MD at [facility] Left: Knee [employer] 06/19/2029 [id number] / / [id number] Insurance MEDICARE [facility] Advance Directives Documents on File Type Date Recorded Patient Black Studies Professor Expl anation Adv Directive/Living Will/POA 08/02/2024 ADV * Full Code (Latest Code Status on File) Date Activated Date Inactivated Comments 08/02/2024 3:32 PM 08/03/2024 3:55 PM Care Teams Automatic Lump Making Machine Tender Relationship Specialty Start Date End Date Tuan Morrison MD [address] [facility], [phone] PCP - General Family Medicine 04/17/24 Damon Prescott MD [address] [place] [address] Cardiovascular Disease 07/23/24
--- OUTSIDE RECORDS SUMMARY | 2025-01-10 20:26 | XMS_ITS | Encounter Summary ---
Author Organization [facility] Address [address] Kramer: Epic Prelude ADT MERARY [place]IX [address] Care Team Providers Care Slab Lifting Engineer Name Role Phone Tuan Morrison MD Primary Care Provider [phone]- [phone] Encounter Details Date Type Department Care Team (Late st Contact Info) Description 02/06/1991 Outpatient Historical Kofi Gallardo MD [address] [facility] [address] [place] [address] Social History Tobacco Use Types Packs/Day Years Used Date Smoking Tobacco: Never Assessed Comments Unknown Sex and Gender Information Value Date Recorded Sex Assigned at Not on file Legal Sex Female 2:58 AM MEDIA RECONCILIATION SPECIALIST Gender Identity Not on file Sexual Orientation Not on file documented as of this encounter Plan of Treatment Not on file documented as of this encounter Visit Diagnoses Not on filedocumented in this encounter Additional Health Concerns Infection Onset Date Last Indicated Resolved Time R/O COVID-19 02/04/2023 02/04/2023 02/04/2023 2:27 AM CDT documented as of this encounter Care Teams Slab Lifting Engineer Relationship Specialty Start Date End Date Tuan Morrison MD [address] [place] [address] PCP - General 03/25/15 documented as of this encounter
--- OUTSIDE RECORDS SUMMARY | 2025-01-10 20:26 | XMS_ITS | Encounter Summary ---
Author Organization [facility] Address [address] Kramer: Epic Prelude ADT MER[place] [address] Care Team Providers Care Corporate Development Manager Name Role Phone Tuan Morrison MD Primary Care Provider [phone]- [phone] Encounter Details Date Type Department Care Team (Late st Contact Info) Description 04/18/1990 Outpatient Historical Kofi Gallardo MD [address] [facility] [address] [place] [address] Social History Tobacco Use Types Packs/Day Years Used Date Smoking Tobacco: Never Assessed Comments Unknown Sex and Gender Information Value Date Recorded Sex Assigned at Not on file Legal Sex Female 2:58 AM BUILDING GUARD DEPUTY SHERIFF Gender Identity Not on file Sexual Orientation Not on file documented as of this encounter Plan of Treatment Not on file documented as of this encounter Visit Diagnoses Not on filedocumented in this encounter Additional Health Concerns Infection Onset Date Last Indicated Resolved Time R/O COVID-19 02/04/2023 02/04/2023 02/04/2023 2:27 AM CDT documented as of this encounter Care Teams Corporate Development Manager Relationship Specialty Start Date End Date Tuan Morrison MD [address] [place] [address] PCP - General 03/25/15 documented as of this encounter
--- OUTSIDE RECORDS SUMMARY | 2025-01-10 20:26 | XMS_ITS | Encounter Summary ---
Author Organization [facility] Address [address] Kramer: Epic Prelude ADT MER[place]IX [address] Care Team Providers Care Material Mixer Name Role Phone Tuan Morrison MD Primary Care Provider +1- [phone] Encounter Details Date Type Department Care Team (Late st Contact Info) Description 02/20/1990 Outpatient Historical Kofi Gallardo MD [address] [facility] [address] [place] [address] Social History Tobacco Use Types Packs/Day Years Used Date Smoking Tobacco: Never Assessed Comments Unknown Sex and Gender Information Value Date Recorded Sex Assigned at Not on file Legal Sex Female 2:58 AM RECEIVING TEAM MEMBER Gender Identity Not on file Sexual Orientation Not on file documented as of this encounter Plan of Treatment Not on file documented as of this encounter Visit Diagnoses Not on filedocumented in this encounter Additional Health Concerns Infection Onset Date Last Indicated Resolved Time R/O COVID-19 02/04/2023 02/04/2023 02/04/2023 2:27 AM CDT documented as of this encounter Care Teams Material Mixer Relationship Specialty Start Date End Date Tuan Morrison MD [address] [place] [address] PCP - General 03/25/15 documented as of this encounter
--- OUTSIDE RECORDS SUMMARY | 2025-01-10 20:26 | XMS_ITS | Encounter Summary ---
Author Organization [facility] Address [address] Kramer: Epic Prelude ADT MERARY [place]IX [address] Care Team Providers Care Magazine Worker Name Role Phone Tuan Morrison MD Primary Care Provider +1- [phone] Encounter Details Date Type Department Care Team (Late st Contact Info) Description 12/28/1991 Outpatient Historical Kofi Gallardo MD [address] [facility] [address] [place] [address] Social History Tobacco Use Types Packs/Day Years Used Date Smoking Tobacco: Never Assessed Comments Unknown Sex and Gender Information Value Date Recorded Sex Assigned at Not on file Legal Sex Female 2:58 AM SALES OFFICE ADMINISTRATOR Gender Identity Not on file Sexual Orientation Not on file documented as of this encounter Plan of Treatment Not on file documented as of this encounter Visit Diagnoses Not on filedocumented in this encounter Additional Health Concerns Infection Onset Date Last Indicated Resolved Time R/O COVID-19 02/04/2023 02/04/2023 02/04/2023 2:27 AM CDT documented as of this encounter Care Teams Magazine Worker Relationship Specialty Start Date End Date Tuan Morrison MD [address] [place] [address] PCP - General 03/25/15 documented as of this encounter
--- OUTSIDE RECORDS SUMMARY | 2025-01-10 20:26 | XMS_ITS | Encounter Summary ---
Author Organization [facility] Address [facility] [facility] [place] [address] Care Team Providers Care Grinder Set Up Operator Gear Tool Name Role Phone Tuan Morrison MD Primary Care Provider +1- [phone] Damon Prescott MD Unavailable [phone] Encounter Details Date Type Department Care Team (Late st Contact Info) Description 11/02/2023 Lab Requisition [facility] - DermPath Lab [address] [place] [phone] Guru Rabago MD [address] [address] Social History Tobacco Use Types Packs/Day Years Used Date Smoking Tobacco: Never Assessed Comments Unknown Sex and Gender Information Value Date Recorded Sex Assigned at Female 05/01/2024 6:42 PM DIRECTOR DIGITAL CATALOGUE Legal Sex Female 6:16 AM DIRECTOR DIGITAL CATALOGUE Gender Identity Female 05/01/2024 6:42 PM DIRECTOR DIGITAL CATALOGUE Sexual Orientation Bisexual 05/01/2024 6: 42 PM DIRECTOR DIGITAL CATALOGUE documented as of this encounter Plan of Treatment Not on file documented as of this encounter Procedures Procedure Name Priority Date/Time Associated Diagnosis Comments DERMATOPATHOLOGY Routine 11/01/2023 3:33 AM CDT documented in this encounter Results * DERMATOPATHOLOGY (11/01/2023 3:33 AM CDT) Case Report Dermatopathology Report Case: [id number] Authorizing Provider: Guru Rabago MD Collected: 11/01/2023 03:33 AM Ordering Location: [facility] - Received: 11/02/2023 12:35 PM DermPath Lab Pathologist: Angela Bernal MD Specimen: Skin, right posterior thigh 10:55 AM CDT DERMATOPATHOLOGY LABORATORY Final Diagnosis Specimen A. 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 The specimen consists of a shave biopsy measuring 5x3x1 mm. Jar 0. 10:55 AM CDT DERMATOPATHOLOGY LABORATORY Microscopic Description Specimen A. SKIN, [...] with depth. (Compound Lisandro's Nevus) 10:55 AM CDT DERMATOPATHOLOGY LABORATORY Disclaimer An external and internal positive and negative controls are appropriate for the histochemical, immunohistochemical and immunofluorescence stain(s) in this case (if any), except where stated explicitly. The performance characteristics of the stain(s) cited in this report were developed and its performance characteristic determined by the Dermatopathology Laboratory at [facility], directed by Dr. Elaina Curtis. These tests need not be, and therefore are not, approved by the [place] Food and Drug Administration. The tests are used for clinical purposes. Billing Codes Specimen Charges Stain Charges 84178 1 10:55 AM CDT DERMATOPATHOLOGY LABORATORY Embedded Images 10:55 AM CDT DERMATOPATHOLOGY LABORATORY Pathology/Cytolo gy TISSUE SPECIMEN FROM SKIN / Unknown 11/01/2023 3:33 AM CDT 11/02/2023 12:35 PM CDT us Guru Rabago MD LAB - PATHOLOGY/CYTOLOGY ORDERAB LES Final Result DERMATOPATHOLOGY LABORATORY [facility] - Department of Dermatology [facility] [address]rd [place] [address], [facility] [phone] documented in this encounter Visit Diagnoses Not on filedocumented in this encounter Care Teams Grinder Set Up Operator Gear Tool Relationship Specialty Start Date End Date Tuan Morrison MD [address] [facility], [phone] PCP - General Family Medicine 04/17/24 Damon Prescott MD [address] [place] [phone] Cardiovascular Disease 07/23/24 documented as of this encounter
--- OUTSIDE RECORDS SUMMARY | 2025-01-10 20:27 | XMS_ITS | Clinical Summary ---
Author Organization [facility] [place] Address [address] [place] [address] Phone Care Team Providers Care Clinical Laboratory Medical Director Name Role Phone Tuan Morrison MD Primary Care Provider +1- [phone] Allergies Active Allergy Reactions Criticality Noted Date Comments Erythromycin Hives High 02/11/2010 Levofloxacin Muscle Pain Low 01/05/2012 Omeprazole Palpitations High 01/23/2016 Penicillins Anaphylaxis High 02/11/2010 Sinutab Rash Low 02/11/2010 Sulfa (Sulfonamide Antibiotics) Diarrhea,Nausea and Vomiting Low 02/28/2023 Medications levothyroxine (SYNTHROID) 75 mcg Oral tablet Take 75 mcg by mouth daily. 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, intermed grade Lymph node status:(-) 05/16 LVI: (not) present Staging: T1c N0 Mx Stage: I Treatment: TC X 4 C1 04/08/10- mouthsores and bronchitis C2 04/29/10 S/p XRT 2022 (-) Family History Medical History Relation Name Comments [...] on file Legal Sex Female 2:58 AM AIR CONDITIONING MECHANIC INDUSTRIAL Gender Identity Not on file Sexual Orientation Not on file Occupation Industry Job Start Date Job End Date Not on file Not on file Not on file Not on file Not on file Not on file Not on file Not on file Last Filed Vital Signs Vital Sign Reading Time Taken Comments Blood Pressure 149/79 06/07/2023 11:58 AM AIR CONDITIONING MECHANIC INDUSTRIAL Pulse 64 06/07/2023 11:58 AM AIR CONDITIONING MECHANIC INDUSTRIAL Temperature 36.3 C (97.3 F) 05/11/2023 12:23 PM AIR CONDITIONING MECHANIC INDUSTRIAL Respiratory Rate 18 05/11/2023 12:23 PM AIR CONDITIONING MECHANIC INDUSTRIAL Oxygen Saturation 94% 05/19/2023 9:42 AM AIR CONDITIONING MECHANIC INDUSTRIAL Inhaled Oxygen Concentration - - Weight 85.3 kg (188 lb 0.8 oz) 06/07/2023 11:58 AM AIR CONDITIONING MECHANIC INDUSTRIAL Height 170.2 cm (5' 7) 06/07/2023 11:58 AM AIR CONDITIONING MECHANIC INDUSTRIAL Body Mass Index 29.45 06/07/2023 11:58 AM AIR CONDITIONING MECHANIC INDUSTRIAL Plan of Treatment Health Maintenance Due Date Last Done Comments DIABETES ANNUAL FOOT EXAM 10/29/1957 DIABETES ANNUAL RETINAL EXAM 10/29/1957 DIABETES MICROALBUMIN ANNUAL SCREEN 10/29/1957 LDL CHOLESTEROL ANNUAL 10/29/1957 DTAP/TDAP/TD VACCINES (1 - Tdap) 10/29/1958 ZOSTER VACCINE (1 of 2) 10/29/1989 RSV VACCINE (60+ or ) (1 - 1-dose 75+ series) 10/29/2014 PNEUMOCOCCAL VACCINE 50+ YEA RS (2 of 2 - PPSV23, PCV20, or PCV21) 03/15/2016 01/19/2016 DIABETES HBA1C Q 6 MONTHS 09/29/20232022, 08/31/2022, 12/25/2021, Additional history exists COVID-19 Vaccine (2023-2 5 season) 2024 12/25/2021, 08/02/2020, 07/12/2020 INFLUENZA VACCINE (#1) 2024 08/03/2024, 2021 OSTEOPOROSIS SCREENING 06/17/2028 06/17/2023, 2014 COLORECTAL SCREENING Discontinued 11/05/2020, 11/05/2020, 07/05/2017 Colorectal Cancer Screening Discontinued FIT-DNA Q 3 years Discontinued FIT/FOBT Q 1 year Discontinued Flex Sig/CT Colonography Q 5 years Discontinued Medical Devices Implanted Type Area Retail Aide Device Identifier Shelf Expiration Date Model / Serial / Lot Lpn Per Diem Clip Surgiclip Ii Myles 9.75in [id number] - [id number] Implanted:Qty: 1 on 02/28/2023 by Indiana Glez MD at [facility] Left: Axilla [employer] - COVIDIEN 09/13/2027 [id number] / / [id number] Cataract Extraction With Iol-2009; Right Eye Right Eye Cataract Excision With Iol-01/2022 Insurance MEDICARE PART A AND B BCBS SUPP RX [facility] Medicare Part D RX EXPRESS SCRIP[employer] Express RX METZ PLANS (INTERNAL) [facility] Plans Advance Directives For more information, please contact: [phone] * Full Code (Latest Code Status on [...] 7:44 AM 02/27/2010 7:44 AM Care Teams Clinical Laboratory Medical Director Relationship Specialty Start Date End Date Tuan Morrison MD [address] [place] [address] PCP - General 03/25/15
--- OUTSIDE RECORDS SUMMARY | 2025-01-10 20:27 | XMS_ITS | Clinical Summary ---
Author Organization [facility] [address] Address [address] [place] [address] Care Team Providers Care Disposition Clerk Name Role Phone Tuan Morrison MD Primary Care Provider +1- [phone] Allergies Active Allergy Reactions Criticality Noted Date Comments Azithromycin Other (See comments) Low 03/09/2022 Erythromycin Rash,Hives High 05/16/1967 Fluticasone Propionate Cough Medium 04/15/2019 Levofloxacin Muscle pain,Other (S ee comments) Medium 01/05/2012 Omeprazole Palpitations High 01/23/2016 Penicillins Anaphylaxis,Other (S ee comments) High 03/09/2022 Rosuvastatin Joint pain High 01/04/2017 Sinutab Rash Medium 02/11/2010 Sulfa (Sulfonamide Antibiotics) Diarrhea,Nausea And Vomiting Low 02/28/2023 Medications famotidine (PEPCID) 20 mg tablet 1 tablet (20 mg total) 2 (two) times a day as needed for indigestion 3 Active Synthroid 75 mcg tablet Take 1 tablet (75 mcg total) by mouth machine puller before breakfast Active vitamin D3-vitamin K2 25 mcg (1,000 unit)-90 mcg tablet,disinte grating Take by mouth Active magnesium citrate 100 mg tablet Take 100 mg by mouth daily after lunch Active vit D3-vit B-rzeehsict-fj ps [id number] nexv-jqg-js-mg tablet Take by mouth Active cholecalcifero l [...] glass of water 60 capsule 4 Active oxyCODONE-acet aminophen (PERCOCET) 5-325 mg per tabletIndicati ons:Pain Take 1-2 tablets by mouth every 4 (four) hours as needed for pain For severe pain, take in place of Tylenol. 20 tablet 4 Active acetaminophen (TYLENOL) 500 mg tablet Take 1 tablet (500 mg total) by mouth every 6 (six) hours as needed for pain Active Active Problems Problem Noted Date Diagnosed [...] from 02/28/2023:Stage IA(pT2, pN0(sn), cM0, G2, ER+, WY+, HER2-) - Unsigned Primary osteoarthritis of left knee 10/27/2022 Encounters Date Type Department Care Team Description 01/04/2025 Results Follow-Up [facility] Medicine Surgery [address] [place] [address] 8 [place] [address] Kelley Snyder NP Screening Mammogram Right W Santiago Unilateral Only 01/02/2025 11:51 AM CDT - 01/02/2025 11:59 PM CDT Hospital Encounter [facility] - Breast Imaging [address] [place] [address] 8 [place] [address] Malignant neoplasm of 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, estrogen receptor positive (HCC); Malignant neoplasm of left female breast, unspecified estrogen receptor status, unspecified site of breast (HCC); Encounter for screening mammogram for malignant neoplasm of breast Discharge Disposition: Discharge to home or self care 01/02/2025 11:45 AM CDT Office Visit [facility] Medicine Surgery [address] [place] [address] 8 [place] [address] Kelley Snyder NP Malignant neoplasm of 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, estrogen receptor positive (HCC) (Primary Dx); History of breast cancer; History of mastectomy, left; Encounter for screening mammogram for malignant neoplasm of breast from Last 3 Months Immunizations Immunization Administration Dates Next Due Influenza, Quadrivalent, Hig h Dose, Preservative Free, Intrr 04/29/2022 Influenza, Unspecified 04/29/2022 Pneumococcal Conjugate PCV 13 01/19/2016 Surgical History Surgery Date Site/Laterality Comments HYSTERECTOMY 05/16/1989 - 05/15/1990 THYROID SURGERY BREAST BIOPSY Bilateral both benign ORAL SURGERY N/A HERNIA REPAIR N/A VARICOSE VEIN SURGERY N/A veins stripped GALLBLADDER SURGERY N/A CATARACT EXTRACTION N/A surgery BREAST LUMPECTOMY 12/14/2022 - 01/13/2023 Left malignant COLONOSCOPY 05/16/2020 - 05/15/2021 BREAST MASS EXCISION 04/15/2023 - 05/15/2023 Left MASTECTOMY 08/08/2023 Left Invasive lobular carcinoma BREAST CYST EXCISION 05/16/1972 - 05/15/1973 Right benign cyst removed near [place] Medical History Medical History Date Comments Heart attack (HCC) Thyroid disease Breast cancer-Left 2023 ILC Breast cancer-left 2009 with chemo an d rad History of chemotherapy 2011 left minor ast cancer History of radiation therapy 2010 lef t breast cancer Family History Medical History Relation Name Comments Prostate cancer Brother Stroke Father Lung cancer Maternal Grandmother Heart failure Mother Anesthesia problems Neg Hx [...] on file Legal Sex Female 1:53 AM WATER PLUMBER Gender Identity Not on file Sexual Orientation Not on file Obstetrics History Para Term AB IAB SAB Ectopic Multiple Livin g Live Births 3 2 Date Outcome GA Total Labor Labor/2nd/3rd Weight Sex Type Anes PTL Charisma A1 A5 Name Clin Last Filed Vital Signs Vital Sign Reading Time Taken Comments Blood Pressure 127/76 09/20/2024 10:43 AM CDT Pulse 76 09/20/2024 10:43 AM CDT Temperature 36.7 C (98.1 F) 09/20/2024 10:43 AM CDT Respiratory Rate 18 09/20/2024 10:43 AM CDT Oxygen Saturation 98% 09/20/2024 10:43 AM CDT Inhaled Oxygen Concentration - - Weight 88.2 kg (194 lb 6.4 oz) 01/02/2025 11:33 AM CDT Height 165.4 cm (5' 5.12) 01/02/2025 11:33 AM C DT Body Mass Index 32.23 01/02/2025 11:33 AM CDT Plan of Treatment Health Maintenance Due Date Last Done Comments Depression Screening 1940 DTaP/Tdap/Td Vaccine (1 - Tdap) 10/29/1950 Hepatitis B Screening 10/29/1957 Zoster Vaccine (1 of 2) 10/29/1989 Well Visit 65+ 10/29/2004 Pneumococcal vaccine 65+ (2 of 2 - PPSV23, PCV20, or PCV21) 03/15/2016 01/19/2016 Osteoporosis Screening-Bone Density Scan 03/18/2017 03/18/2015 Covid-19 Vaccine (2023-2 5 season) 2024 04/01/2022, 12/25/2021, 05/21/2021, Additional history exists Fall Risk Assessment 08/07/2024 08/08/2023 Influenza Vaccine (#1) 2025 04/29/2022, 2021 Procedures Procedure Name Priority Date/Time Associated Diagnosis Comments SCREENING MAMMOGRAM RIGHT W SANTIAGO UNILATERAL ONLY Schedule Routine, Read Routine (OP Routine) 01/02/2025 12:12 PM CDT Malignant neoplasm of 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, estrogen receptor positive (HCC) Malignant neoplasm of left female breast, unspecified estrogen receptor status, unspecified site of breast (HCC) Encounter for screening mammogram for malignant neoplasm of breast from Last 3 Months Results * Screening Mammogram Right W Santiago Unilateral Only (01/02/2025 12:12 PM CDT) Anatomical Region Laterality Modality Breast Right Mammography Impressions 01/04/2025 12:45 PM CDT No evidence of malignancy. OVERALL BI-RADS FINAL ASSESSMENT: 2 - Benign RECOMMENDATION: Recommend right breast annual screening mammography. Decision to continue screening mammography should be made based on clinical factors. Narrative 01/04/2025 12:45 PM CDT EXAMINATION: Screening Mammogram Right W Santiago Unilateral Only: 01/02/2025 COMPARISON: Relevant prior studies available at the time of interpretation were reviewed, including the most recent mammogram on: 12/23/2023. TECHNIQUE: Mammography was performed with 2D and 3D digital breast tomosynthesis (DBT) images. CAD was utilized. BREAST PARENCHYMAL COMPOSITION: There are scattered areas of fibroglandular density. FINDINGS: There is no suspicious mass, calcification, or architectural distortion. Mena Mansfield MD IMG MAMMO PROCEDURES Fi nal Result from Last 3 Months Insurance MEDICARE [facility] MEDICARE [facility] MEDICARE SUPPLEMENT MEDICARE [facility] MEDICARE SUPPLEMENT Advance Directives For more information, please contact: [phone] Documents on File Type Date Recorded Patient Manufacturing Specialist Expl anation ADVANCE DIRECTIVE 08/08/2023 2:02 PM Power of Technical Sme-Medical Care Teams Disposition Clerk Relationship Specialty Start Date End Date Tuna Morrison MD [address] [place] [address] PCP - General Family Medicine 09/11/20
--- OUTSIDE RECORDS SUMMARY | 2025-01-10 21:32 | XMS_ITS | Encounter Summary ---
Author Organization [facility] Address [address] Kramer: Epic Prelude ADT [place] [place] [address] Care Team Providers Care Front Desk Person Name Role Phone Tuan Morrison MD Primary Care Provider +1- [phone] Encounter Details Date Type Department Care Team (Late st Contact Info) Description 12/19/1989 Outpatient Historical Kofi Gallardo MD [address] [facility] [address] [place] [address] Social History Tobacco Use Types Packs/Day Years Used Date Smoking Tobacco: Never Assessed Comments Unknown Sex and Gender Information Value Date Recorded Sex Assigned at Not on file Legal Sex Female 2:58 AM HYPERBARIC TECHNICIAN Gender Identity Not on file Sexual Orientation Not on file documented as of this encounter Plan of Treatment Not on file documented as of this encounter Visit Diagnoses Not on filedocumented in this encounter Additional Health Concerns Infection Onset Date Last Indicated Resolved Time R/O COVID-19 02/04/2023 02/04/2023 02/04/2023 2:27 AM CDT documented as of this encounter Care Teams Front Desk Person Relationship Specialty Start Date End Date Tuan Morrison MD [address] [place] [address] PCP - General 03/25/15 documented as of this encounter
--- OUTSIDE RECORDS SUMMARY | 2025-01-10 21:32 | XMS_ITS | Encounter Summary ---
Author Organization [facility] Address [address] Kramer: Epic Prelude ADT [place] [address] Care Team Providers Care Stringer Machine Tender Name Role Phone Tuan Morrison MD Primary Care Provider +1- [phone] Encounter Details Date Type Department Care Team (Late st Contact Info) Description 05/18/1990 Outpatient Historical Kofi Gallardo MD [address] 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
--- OUTSIDE RECORDS SUMMARY | 2025-01-10 21:32 | XMS_ITS | Encounter Summary ---
Author Organization [facility] Address [address] Kramer: Epic Prelude ADT [place] [address] Care Team Providers Care Tractor Mechanic Name Role Phone Tuan Morrison MD Primary Care Provider +1- [phone] Encounter Details Date Type Department Care Team (Late st Contact Info) Description 12/28/1991 Outpatient Historical Kofi Gallardo MD [address] [facility] [address] [place] [address] Social History Tobacco Use Types Packs/Day Years Used Date Smoking Tobacco: Never Assessed Comments Unknown Sex and Gender Information Value Date Recorded Sex Assigned at Not on file Legal Sex Female 2:58 AM EXTENSION COURSE COORDINATOR Gender Identity Not on file Sexual Orientation Not on file documented as of this encounter Plan of Treatment Not on file documented as of this encounter Visit Diagnoses Not on filedocumented in this encounter Additional Health Concerns Infection Onset Date Last Indicated Resolved Time R/O COVID-19 02/04/2023 02/04/2023 02/04/2023 2:27 AM CDT documented as of this encounter Care Teams Tractor Mechanic Relationship Specialty Start Date End Date Tuan Morrison MD [address] [place] [address] PCP - General 03/25/15 documented as of this encounter
--- OUTSIDE RECORDS SUMMARY | 2025-01-10 21:32 | XMS_ITS | Encounter Summary ---
Author Organization [employer] Address [address] [place] [address] Care Team Providers Care Flat Knitter Name Role Phone Tuan Morrison MD Primary Care Provider +1- [phone] Encounter Details Date Type Department Care Team [...] on file Legal Sex Female 2:58 AM RENAL NURSE Gender Identity Not on file Sexual Orientation Not on file documented as of this encounter Plan of Treatment Not on file documented as of this encounter Visit Diagnoses Diagnosis Sprain of neck- Primary documented in this encounter Additional Health Concerns Infection Onset Date Last Indicated Resolved Time R/O COVID-19 02/04/2023 02/04/2023 02/04/2023 2:27 AM CDT documented as of this encounter Care Teams Flat Knitter Relationship Specialty Start Date End Date Tuan Morrison MD [address] [place] [address] PCP - General 03/25/15 documented as of this encounter
--- OUTSIDE RECORDS SUMMARY | 2025-01-10 21:32 | XMS_ITS | Clinical Summary ---
Author Organization [facility] [place] Address [address] [place] [address] Phone Care Team Providers Care Picking Machine Operator Helper Name Role Phone Tuan Morrison MD Primary Care Provider +1- [phone] Allergies Active Allergy Reactions Criticality Noted Date Comments Erythromycin Hives High 02/11/2010 Levofloxacin Muscle Pain Low 01/05/2012 Omeprazole Palpitations High 01/23/2016 Penicillins Anaphylaxis High 02/11/2010 Sinutab Rash Low 02/11/2010 Sulfa (Sulfonamide Antibiotics) Diarrhea,Nausea and Vomiting Low 02/28/2023 Medications levothyroxine (SYNTHROID) 75 mcg Oral tablet Take 75 mcg by mouth daily. Active LACTOBAC/BIFIDOB AC/GLOB [place] CON (ULTRA EFREM PLUS ORAL) Take by [...] Tuan Morrison MD Referring Provider: Tuan Morrison [address] [place] [address] Other: Problem Noted Date Diagnosed Date Multiple [...] of diagnosis: 01/20/2023 Diagnosis: LEFT ILC ER(+) WY(+) Her 2(-) Surgeon: Amaris Surgery: Medical Oncologist: [...] type: IDC, >1 cm ER: (-) neg WY: (-) neg Her2 nina: (not) amplified Grade: [...] on file Legal Sex Female 2:58 AM ORTHOTIC/PROSTHETIC CLINICIAN Gender Identity Not on file Sexual Orientation Not on file Occupation Industry Job Start Date Job End Date Not on file Not on file Not on file Not on file Not on file Not on file Not on file Not on file Last Filed Vital Signs Vital Sign Reading Time Taken Comments Blood Pressure 149/79 06/07/2023 11:58 AM ORTHOTIC/PROSTHETIC CLINICIAN Pulse 64 06/07/2023 11:58 AM ORTHOTIC/PROSTHETIC CLINICIAN Temperature 36.3 C (97.3 F) 05/11/2023 12:23 PM ORTHOTIC/PROSTHETIC CLINICIAN Respiratory Rate 18 05/11/2023 12:23 PM ORTHOTIC/PROSTHETIC CLINICIAN Oxygen Saturation 94% 05/19/2023 9:42 AM ORTHOTIC/PROSTHETIC CLINICIAN Inhaled Oxygen Concentration - - Weight 85.3 kg (188 lb 0.8 oz) 06/07/2023 11:58 AM ORTHOTIC/PROSTHETIC CLINICIAN Height 170.2 cm (5' 7) 06/07/2023 11:58 AM ORTHOTIC/PROSTHETIC CLINICIAN Body Mass Index 29.45 06/07/2023 11:58 AM ORTHOTIC/PROSTHETIC CLINICIAN Plan of Treatment Health Maintenance Due Date [...] years Discontinued Medical Devices Implanted Type Area Whiting Machine Operator Device Identifier Shelf Expiration Date Model / Serial / Lot Grinder Dresser Clip Surgiclip Ii Myles 9.75in [id number] - [id number] Implanted:Qty: 1 on 02/28/2023 by Indiana Glez MD at [facility] Left: Axilla [employer] - COVIDIEN 09/13/2027 [id number] / / [id number] Cataract Extraction With Iol-2009; Right Eye Right Eye Cataract Excision With Iol-01/2022 Insurance MEDICARE PART A AND B BCBS SUPP RX [facility] Medicare Part D RX [employer] Express RX METZ PLANS (INTERNAL) [facility] Plans Advance Directives For more information, please contact: [phone] * Full Code (Latest Code Status on [...] 7:44 AM 02/27/2010 7:44 AM Care Teams Picking Machine Operator Helper Relationship Specialty Start Date End Date Tuan Morrison MD [address] [place] [address] PCP - General 03/25/15
--- OUTSIDE RECORDS SUMMARY | 2025-01-10 21:32 | XMS_ITS | Clinical Summary ---
Author Organization [facility] [address] Address [address] [place] [address] Care Team Providers Care Licensed Practical Nurse Name Role Phone Tuan Morrison MD Primary Care Provider +1- [phone] Allergies Active Allergy Reactions Criticality Noted Date [...] 1 tablet (75 mcg total) by mouth early head start teacher before breakfast Active vitamin D3-vitamin K2 25 mcg (1,000 unit)-90 mcg tablet,disinte grating Take by mouth Active magnesium citrate 100 mg tablet Take 100 mg by mouth daily after lunch Active vit D3-vit M-dajehrnis-tz ps [id number] ridr-qab-qs-mg tablet Take by mouth Active cholecalcifero l [...] from 02/28/2023:Stage IA(pT2, pN0(sn), cM0, G2, ER+, UT+, HER2-) - Unsigned Primary osteoarthritis of left knee 10/27/2022 Encounters Date Type Department Care Team Description 01/04/2025 Results Follow-Up [facility] Medicine Surgery [address] [place] [address] [address] [place] [address] Kelley Snyder NP Screening Mammogram Right W Santiago Unilateral Only 01/02/2025 11:51 AM CDT - 01/02/2025 11:59 PM CDT Hospital Encounter [facility] - Breast Imaging [address] [place] [address] [address] [place] [address] Malignant neoplasm of 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, estrogen receptor positive (HCC); Malignant neoplasm of left female breast, unspecified estrogen receptor status, unspecified site of breast (HCC); Encounter for screening mammogram for malignant neoplasm of breast Discharge Disposition: Discharge to home or self care 01/02/2025 11:45 AM CDT Office Visit [facility] Medicine Surgery [address] [place] [address] [address] [place] [address] Kelley Snyder NP Malignant neoplasm of lower-outer [...] on file Legal Sex Female 1:53 AM OPERATIONS COORDINATOR Gender Identity Not on file Sexual [...] Result from Last 3 Months Insurance MEDICARE [facility] MEDICARE [facility] MEDICARE SUPPLEMENT MEDICARE [facility] MEDICARE SUPPLEMENT Advance Directives For more information, please contact: [phone] Documents on File Type Date Recorded Patient Channel Sales Director Expl anation ADVANCE DIRECTIVE 08/08/2023 2:02 PM Power of Addiction Treatment Counselor-Medical Care Teams Licensed Practical Nurse Relationship Specialty Start Date End Date Tuan Morrison MD [address] [place] [address] PCP - General Family Medicine 09/11/20
--- OUTSIDE RECORDS SUMMARY | 2025-01-10 21:32 | XMS_ITS | Encounter Summary ---
Author Organization [employer] Address [address] [place] [address] Care Team Providers Care Senior Consultant Name Role Phone Tuan Morrison MD Primary Care Provider +1- [phone] Encounter Details Date Type Department Care Team (Late st Contact Info) Description 08/21/2003 Outpatient Historical [facility] Support [facility]. (Adt Cardiology[facility]) [address] [place] [address] Ingrid Pierre MD Social History Tobacco Use Types Packs/Day Years Used Date Smoking Tobacco: Never Assessed Comments Unknown Sex and Gender Information Value Date Recorded Sex Assigned at Not on file Legal Sex Female 2:58 AM SHIRT PRESSER Gender Identity Not on file Sexual Orientation Not on file documented as of this encounter Plan of Treatment Not on file documented as of this encounter Visit Diagnoses Not on filedocumented in this encounter Additional Health Concerns Infection Onset Date Last Indicated Resolved Time R/O COVID-19 02/04/2023 02/04/2023 02/04/2023 2:27 AM CDT documented as of this encounter Care Teams Senior Consultant Relationship Specialty Start Date End Date Tuan Morrison MD [address] [place] [address] PCP - General 03/25/15 documented as of this encounter
--- OUTSIDE RECORDS SUMMARY | 2025-01-10 21:32 | XMS_ITS | Encounter Summary ---
Author Organization [facility] Address [address] Kramer: Epic Prelude ADT MERARY [place]IX [address] Care Team Providers Care Comparative Sociology Professor Name Role Phone Tuan Morrison MD Primary Care Provider +1- [phone] Encounter Details Date Type Department Care Team (Late st Contact Info) Description 02/20/1990 Outpatient Historical Kofi Gallardo MD [address] [facility] [address] [place] [address] Social History Tobacco Use Types Packs/Day Years Used Date Smoking Tobacco: Never Assessed Comments Unknown Sex and Gender Information Value Date Recorded Sex Assigned at Not on file Legal Sex Female 2:58 AM CUSTOMER CONSULTING MANAGER Gender Identity Not on file Sexual Orientation Not on file documented as of this encounter Plan of Treatment Not on file documented as of this encounter Visit Diagnoses Not on filedocumented in this encounter Additional Health Concerns Infection Onset Date Last Indicated Resolved Time R/O COVID-19 02/04/2023 02/04/2023 02/04/2023 2:27 AM CDT documented as of this encounter Care Teams Comparative Sociology Professor Relationship Specialty Start Date End Date Tuan Morrison MD [address] [place] [address] PCP - General 03/25/15 documented as of this encounter
--- OUTSIDE RECORDS SUMMARY | 2025-01-10 21:32 | XMS_ITS | Encounter Summary ---
Author Organization [facility] Address [address] Kramer: Epic Prelude ADT MER[place]IX [address] Care Team Providers Care Dramatic Art Teacher Name Role Phone Tuan Morrison MD Primary Care Provider +1- [phone] Encounter Details Date Type Department Care Team (Late st Contact Info) Description 01/06/1993 Outpatient Historical Kofi Gallardo MD [address] 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
--- OUTSIDE RECORDS SUMMARY | 2025-01-10 21:32 | XMS_ITS | Encounter Summary ---
Author Organization [facility] Address [address] [place] [address] Phone Care Team Providers Care Binder Selector Name Role Phone Tuan Morrison MD Primary Care Provider +1- [phone] Encounter Details Date Type Department Care Team (Late st Contact Info) Description 01/04/2025 Results Follow-Up [facility] Medicine Surgery [address] [place] [phone] Kelley Snyder NP [address] [facility] [phone] [place] [address] Screening Mammogram Right W Santiago Unilateral Only [...] on file Legal Sex Female 1:53 AM VICE PRESIDENT QUALITY IMPROVEMENT Gender Identity Not on file Sexual Orientation Not on file documented as of this encounter Plan of Treatment Not on file documented as of this encounter Visit Diagnoses Not on filedocumented in this encounter Care Teams Binder Selector Relationship Specialty Start Date End Date Tuan Morrison MD [address] [place] [address] PCP - General Family Medicine 09/11/20 documented as of this encounter
--- OUTSIDE RECORDS SUMMARY | 2025-01-10 21:32 | XMS_ITS | Encounter Summary ---
Author Organization [facility] Address [address] Kramer: Epic Prelude ADT MER[place] [address] Care Team Providers Care Farm Operations Manager Name Role Phone Tuan Morrison MD Primary Care Provider +1- [phone] Encounter Details Date Type Department Care Team (Late st Contact Info) Description 04/18/1990 Outpatient Historical Kofi Gallardo MD [address] [facility] [address] [place] [address] Social History Tobacco Use Types Packs/Day Years Used Date Smoking Tobacco: Never Assessed Comments Unknown Sex and Gender Information Value Date Recorded Sex Assigned at Not on file Legal Sex Female 2:58 AM DOUBLER OPERATOR Gender Identity Not on file Sexual Orientation Not on file documented as of this encounter Plan of Treatment Not on file documented as of this encounter Visit Diagnoses Not on filedocumented in this encounter Additional Health Concerns Infection Onset Date Last Indicated Resolved Time R/O COVID-19 02/04/2023 02/04/2023 02/04/2023 2:27 AM CDT documented as of this encounter Care Teams Farm Operations Manager Relationship Specialty Start Date End Date Tuan Morrison MD [address] [place] [address] PCP - General 03/25/15 documented as of this encounter
--- OUTSIDE RECORDS SUMMARY | 2025-01-10 21:32 | XMS_ITS | Encounter Summary ---
Author Organization [facility] Address [address] Kramer: Epic Prelude ADT [place] [address] Care Team Providers Care Bank Vault Attendant Name Role Phone Tuan Morrison MD Primary Care Provider +1- [phone] Encounter Details Date Type Department Care Team (Late st Contact Info) Description 02/06/1991 Outpatient Historical Kofi Gallardo MD [address] [facility] [address] [place] [address] Social History Tobacco Use Types Packs/Day Years Used Date Smoking Tobacco: Never Assessed Comments Unknown Sex and Gender Information Value Date Recorded Sex Assigned at Not on file Legal Sex Female 2:58 AM WHEEL INSPECTOR Gender Identity Not on file Sexual Orientation Not on file documented as of this encounter Plan of Treatment Not on file documented as of this encounter Visit Diagnoses Not on filedocumented in this encounter Additional Health Concerns Infection Onset Date Last Indicated Resolved Time R/O COVID-19 02/04/2023 02/04/2023 02/04/2023 2:27 AM CDT documented as of this encounter Care Teams Bank Vault Attendant Relationship Specialty Start Date End Date Tuan Morrison MD [address] [place] [address] PCP - General 03/25/15 documented as of this encounter
--- OUTSIDE RECORDS SUMMARY | 2025-01-10 21:32 | XMS_ITS | Clinical Summary ---
Author Organization [facility] Address [address] [place] [address] Care Team Providers Care Plugger Worker Name Role Phone Tuan Morrison MD Primary Care Provider +1- [phone] Damon Prescott MD Unavailable [phone] Source Comments [facility],non-owned Affiliates and Associated Physician Practices is amultiple site organization consisting of ambulatory clinics and hospital sitesin [place], [place], [place]. This disclosure is being madepursuant to the Care Everywhere program and may not contain all information available regarding this patient. Last updated 18.[facility] Allergies Active Allergy Reactions Criticality Noted Date [...] Description 12/06/2024 4:00 PM CDT Office Visit [facility] [address] [place] [address], [address] [phone] Edinson Denise MD History of total left knee replacement (Primary Dx) 11/14/[address], [address] [phone] Edinson Denise MD Refill Request 10/11/2024 4:40 PM CDT Office Visit [address], [address] [phone] Edinson Denise MD Aftercare following left knee [...] Recorded Patient Health Questionnaire-2 Score 2 09/13/2024 [facility] Occupat ional Health - Occupational Stress [...] No 08/02/2024 Housing Stability Vital Sign Answer Guprreet e Recorded In the last 12 months, was t here a time when you were not able to pay the mortgage or rent on time? No 08/02/2024 In the past 12 months, how m any times have you moved where you were living? 1 08/02/2024 At any time in the past 12 m [facility], were you homeless or living in a senior care (including now)? No 08/02/2024 Comments No Sex and Gender Information Value Date Recorded Sex Assigned at Female 05/01/2024 6:42 PM CAREER INFORMATION SPECIALIST Legal Sex Female 6:16 AM CAREER INFORMATION SPECIALIST Gender Identity Female 05/01/2024 6:42 PM CAREER INFORMATION SPECIALIST Sexual Orientation Bisexual 05/01/2024 6: 42 PM CAREER INFORMATION SPECIALIST Last Filed Vital Signs Vital Sign Reading [...] this topic Medical Devices Implanted Type Area Building Trades Teacher Device Identifier Shelf Expiration Date Model / Serial / Lot Cmnt Bone Plc R 40gm Grn Implanted:Qty: 1 on 08/02/2024 by Edinson Denise MD at [facility] Left: Knee [employer] 09/12/2026 [id number] / / [id number] Cmnt Bone Plc R 40gm Grn Implanted:Qty: 1 on 08/02/2024 by Edinson Denise MD at [facility] Left: Knee [employer] 07/13/2026 [id number] / / [id number] Cmpnt Ptlr Std 28mm 3 Pg Kn Ser A Implanted:Qty: 1 on 08/02/2024 by Edinson Denise MD at [facility] Left: Knee [employer] 07/23/2029 [id number] / / [id number] Tray Tib 71mm Kn Cocr I Beam Implanted:Qty: 1 on 08/02/2024 by Edinson Denise MD at [facility] Left: Knee [employer] 04/30/2034 [id number] / / [id number] Cmpnt Fem Kn Lt Cr Cmnt Prm Vngrd Intlk Implanted:Qty: 1 on 08/02/2024 by Edinson Denise MD at [facility] Left: Knee [employer] 05/26/2034 [id number] / / [id number] Brng 20x40ud Vngrd Vivacit-E Kn Ant Stab Implanted:Qty: 1 on 08/02/2024 by Edinson Denise MD at [facility] Left: Knee [employer] 06/19/2029 [id number] / / [id number] Insurance MEDICARE [facility] Advance Directives Documents on File Type Date Recorded 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
--- OUTSIDE RECORDS SUMMARY | 2025-01-10 21:32 | XMS_ITS | Encounter Summary ---
Author Organization [facility] Address [facility] [facility] [place] [address] Care Team Providers Care English Tutor Name Role Phone Tuan Morrison MD Primary Care Provider +1- [phone] Damon Prescott MD Unavailable [phone] Encounter Details Date Type Department Care Team (Late st Contact Info) Description 11/02/2023 Lab Requisition [facility] - [facility]erm[facility] Lab [address] [place] [phone] Guru Rabago MD [address] [address] Social History Tobacco Use Types Packs/Day Years Used Date Smoking Tobacco: Never Assessed Comments Unknown Sex and Gender Information Value Date Recorded Sex Assigned at Female 05/01/2024 6:42 PM DIRECTOR OF FOOD AND NUTRITION Legal Sex Female 6:16 AM DIRECTOR OF FOOD AND NUTRITION Gender Identity Female 05/01/2024 6:42 PM DIRECTOR OF FOOD AND NUTRITION Sexual Orientation Bisexual 05/01/2024 6: 42 PM DIRECTOR OF FOOD AND NUTRITION documented as of this encounter Plan of Treatment Not on file documented as of this encounter Procedures Procedure Name Priority Date/Time Associated Diagnosis Comments DERMATOPATHOLOGY Routine 11/01/2023 3:33 AM CDT documented in this encounter Results * DERMATOPATHOLOGY (11/01/2023 3:33 AM CDT) Case Report Dermatopathology Report Case: [id number] Authorizing Provider: Guru Rabago MD Collected: 11/01/2023 03:33 AM Ordering Location: [facility] - Received: 11/02/2023 12:35 PM [...] purposes. Billing Codes Specimen Charges Stain Charges [id number] 10:55 AM CDT DERMATOPATHOLOGY LABORATORY Embedded Images 10:55 AM CDT DERMATOPATHOLOGY LABORATORY Pathology/Cytolo gy TISSUE SPECIMEN FROM SKIN / Unknown 11/01/2023 3:33 AM CDT 11/02/2023 12:35 PM CDT us Guru Rabago MD LAB - PATHOLOGY/CYTOLOGY ORDERAB LES Final Result DERMATOPATHOLOGY LABORATORY [facility] - Department of Dermatology [facility] Specialized Medicine [address] 3rd [place] [address], [facility] [phone] documented in this encounter Visit Diagnoses Not on filedocumented in this encounter Care Teams English Tutor Relationship Specialty Start Date End Date Tuan Morrison MD [address] [facility], [phone] PCP - General Family Medicine 04/17/24 Damon Prescott MD [address] [place] [phone] Cardiovascular Disease 07/23/24 documented as of this encounter
--- OUTSIDE RECORDS SUMMARY | 2025-01-10 21:32 | XMS_ITS | Encounter Summary ---
Author Organization [facility] Address [address] Kramer: Epic Prelude ADT MER[place]IX [address] Care Team Providers Care Transmitter Engineer In Charge Name Role Phone Tuan Morrison MD Primary Care Provider [phone]- [phone] Encounter Details Date Type Department Care Team (Late st Contact Info) Description 02/01/1992 Outpatient Historical Kofi Gallardo MD [address] [facility] [address] [place] [address] Social History Tobacco Use Types Packs/Day Years Used Date Smoking Tobacco: Never Assessed Comments Unknown Sex and Gender Information Value Date Recorded Sex Assigned at Not on file Legal Sex Female 2:58 AM REHAB SPECIALIST Gender Identity Not on file Sexual Orientation Not on file documented as of this encounter Plan of Treatment Not on file documented as of this encounter Visit Diagnoses Not on filedocumented in this encounter Additional Health Concerns Infection Onset Date Last Indicated Resolved Time R/O COVID-19 02/04/2023 02/04/2023 02/04/2023 2:27 AM CDT documented as of this encounter Care Teams Transmitter Engineer In Charge Relationship Specialty Start Date End Date Tuan Morrison MD [address] [place] [address] PCP - General 03/25/15 documented as of this encounter
--- NOTE | 2025-01-10 21:41 | ED_ITS ---
HPI - Extremity Problem General Chief complaint: Extremity Problem,Nontraumatic Stated complaint: dr sent for US of R leg r/o blood clot Time Seen by Provider: 01/10/25 21:20 Source: patient Mode of arrival: ambulatory Limitations: no limitations History of Present Illness HPI Narrative: This is a 84 year old female that presents to the ER for right calf pain. Ongoing over the last week. Reports some swelling. Presents to rule out DVT. Denies chest pain, shortness of breath. 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 Head injury 2009 UTI (urinary tract infection) Surgical History Surgical History (Updated 06/22/24 @ 09:27 by Mckenna Green MD) H/O mastectomy left H/O lumpectomy Left History of cardiac catheterization 2016; mild blockages 72% and 19%), no stents required Social History Social History Social History: Jaswinder 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 HEAD: Normocephalic, atraumatic. EYES: EOMI. CHEST: No respiratory distress. HEART: Regular rate EXTREMITIES: Normal range of motion. No edema or erythema. Normal DP pulses. Normal sensation SKIN: Warm, dry, no rash. NEURO: No focal deficits. Alert and oriented x3. PSYCH: Normal mood and affect Course Course Emergency Course: patient and family updated on workup and agree with plan of care Vital Signs Vital signs: Vital Signs Temperature 97.4 F L 01/10/25 20:34 Pulse Rate 82 01/10/25 20:34 Respiratory Rate 17 01/10/25 20:34 Blood Pressure 131/62 01/10/25 20:34 Pulse Oximetry 95 01/10/25 20:34 Oxygen Delivery Room Air 01/10/25 20:34 Temperature 97.4 F L 01/10/25 20:34 Pulse Rate 59 L 01/11/25 00:22 Respiratory Rate 14 01/11/25 00:22 Blood Pressure 132/75 01/11/25 00:22 Pulse Oximetry 97 01/11/25 00:22 Oxygen Delivery Room Air 01/10/25 20:34 MDM - Extremity (Nontraumatic) MDM Narrative Medical decision making narrative: Patient presents the emergency department for right calf pain. Denies chest pain or shortness of breath. She is not tachycardic. Oxygen saturation is normal on room air. Ultrasound venous Doppler showing DVT in the right popliteal and gastrocnemius veins. Patient given a dose of Lovenox in the ER. Will be continued on Xarelto. Instructed to have close follow-up with PCP. She was given warnings to return to the ER Differential Diagnosis Differential diagnosis: Likely deep vein thrombosis of lower extremity and other (Varicose veins) Imaging Data Radiologist's impression: US venous doppler lower extremity right: DVT in the right popliteal and gastrocnemius veins Critical Care Time Critical Care Time Critical Care Time: No Discharge Plan Discharge Clinical Impression: Deep vein thrombosis of lower extremity Qualifiers: Affected thrombotic vein of extremity: popliteal Chronicity: acute Laterality: right Qualified Code(s): I82.431 - Acute embolism and thrombosis of right popliteal vein Patient Disposition: Home Condition: Stable Instructions: Deep Vein Thrombosis (ED) Additional Instructions: Return to the ER if you experience fever, chest pain, shortness of breath, or any other symptoms that are concerning to you Take Xarelto as prescribed Follow up with your primary care doctor Patient Language: Venezuelan Prescriptions: New Xarelto DVT-PE Treat 30d Start 15 mg (42)- 20 mg (9) tablets,dose pack See Rx Instructions .ROUTE .COMPLEX Qty: 51 0RF Rx Instructions: take one-15 mg tablet twice daily for 21 days, then one-20 mg tablet once daily; must take with meal/food No Action sulfamethoxazole-trimethoprim [Bactrim DS] 800-160 mg tablet 1 tablet PO Q12H 5 Days Qty: 9 0RF Follow-up/Referrals: Tamiko,MD Tuan [Primary Care Provider, Unknown]
[2025-01-11 00:22] VITALS: BP 132/75; PULSE 59; RESP 14; O2SAT 97
[2025-01-11] MEDS: ENOXAPARIN 100 MG/ML SYRINGE 85 MG SUB-Q (02:36)
[2025-01-11 02:40] VITALS: BP 135/72; PULSE 62; RESP 16; O2SAT 98
[2025-01-11 02:57] VITALS: BP 135/72; PULSE 62; RESP 16; O2SAT 98
== END 2025-01-11 03:00 | disposition home or self-care (01) ==
PROVIDERS: Emergency Provider Physician Assistant; PCP Family Medicine
DX: I82.431 Acute embolism and thrombosis of right popliteal vein (principal); I82.461 Acute embolism and thrombosis of right calf muscular vein; I25.10 Atherosclerotic heart disease of native coronary artery without angina pectoris; Z85.3 Personal history of malignant neoplasm of breast; Z87.440 Personal history of urinary (tract) infections; Z90.12 Acquired absence of left breast and nipple
CPT/HCPCS: 93971; 96372; 99284; J1650

== ENCOUNTER 2025-01-28 17:53 | Emergency (ER) | payer MEDICARE, SELFPAY ==
--- OUTSIDE RECORDS SUMMARY | 2016-07-29 | XMS_ITS | Encounter Summary ---
Author Organization [facility] Healthcare Address [address] [place] [address] Care Team Providers Care Teletype Operator Name Role Phone Unavailable Primary Care Provider Unavailabl e Reason for Visit * Diagnostic Imaging (Routine) - Closed Specialty Diagnoses / Procedures Referred By Contac t Referred To Contact Procedures Breast Imaging [place]ening [place] [address] [place] [address] Phone: tel: fax: Referral ID Status Reason Start Date Expiration Date Visits Re quested Visits Authorized [id number] Closed 05/12/2023 06/10/2024 1 1 Encounter Details Date Type Department Care Team (Late st Contact Info) Description 07/29/2016 Hospital Encounter [facility]iology [facility] [address] [place] [address] Social History Tobacco Use Types Packs/Day Years [...] on file Legal Sex Female 1:53 AM STABLE ATTENDANT Gender Identity Not on file Sexual Orientation [...] CDT) Impressions [facility] - 05/12/2023 1:55 PM STABLE ATTENDANT These images are for Reference purposes only and have not been reviewed by [facility]. There will be no report generated by a [facility] Radiologist. Narrative [facility] - 05/12/2023 1:55 PM STABLE ATTENDANT EXAMINATION: Images For Reference Purposes Only us [...]
--- OUTSIDE RECORDS SUMMARY | 2017-08-01 | XMS_ITS | Encounter Summary ---
Author Organization [facility] Healthcare Address [address] [place] [address] Care Team Providers Care Small Products Assembler Name Role Phone Unavailable Primary Care Provider Unavailabl e Reason for Visit * Diagnostic Imaging (Routine) - Closed Specialty Diagnoses / Procedures Referred By Contac t Referred To Contact Diagnoses Malignant neoplasm of unspecified site of left female breast Procedures Breast Imaging Screening Outside Reference Mena Mansfield MD [address] [address] Phone: tel: fax: Mena Mansfield MD Phone: tel: fax: Referral ID Status Reason Start Date Expiration Date Visits Re quested Visits Authorized [id number] Closed 05/12/2023 06/10/2024 1 1 Encounter Details Date Type Department Care Team (Late st Contact Info) Description 08/01/2017 Hospital Encounter [facility] Radiology [facility] [address] [place] [address] Social History Tobacco Use Types Packs/Day [...] on file Legal Sex Female 1:53 AM 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 There will be no report generated by a [facility] Radiologist. Narrative RAD[facility] - 05/12/2023 1:55 PM OCEAN FREIGHT MANAGER EXAMINATION: Images For Reference Purposes Only us [...]
--- OUTSIDE RECORDS SUMMARY | 2018-08-08 | XMS_ITS | Encounter Summary ---
Author Organization [facility] Healthcare Address [address] [place] [address] Care Team Providers Care Senior Application Security Consultant Name Role Phone Unavailable Primary Care Provider Unavailabl e Reason for Visit * Diagnostic Imaging (Routine) - Closed Specialty Diagnoses / Procedures Referred By Contac t Referred To Contact Diagnoses Malignant neoplasm of left female breast, unspecified estrogen receptor status, unspecified site of breast (HCC) Procedures Breast Imaging Screening Outside Reference Mena Mansfield MD [address] [place] [address] Phone: tel: fax: Referral ID Status Reason Start Date Expiration Date Visits Re quested Visits Authorized [id number] Closed 05/12/2023 06/10/2024 1 1 Encounter Details Date Type Department Care Team (Late st Contact Info) Description 08/08/2018 Hospital Encounter [facility] [address] [place], [place] [id number] Social History Tobacco Use Types Packs/Day Years [...] on file 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 There will be no report generated by a [facility] Radiologist. Narrative RAD_M[facility]MO[facility] - 05/12/2023 2:05 PM GAS METER INSTALLER EXAMINATION: Images For Reference Purposes Only us [...]
--- OUTSIDE RECORDS SUMMARY | 2019-10-02 | XMS_ITS | Encounter Summary ---
Author Organization [facility] Healthcare Address [address] [place] [address] Care Team Providers Care Cigar Tobacco Rehandler Name Role Phone Unavailable Primary Care Provider Unavailabl e Reason for Visit * Diagnostic Imaging (Routine) - Closed Specialty Diagnoses / Procedures Referred By Contac t Referred To Contact Procedures Breast Imaging [place] [address] [place] [address] Phone: tel: fax: Referral ID Status Reason Start Date Expiration Date Visits Re quested Visits Authorized [id number] Closed 05/12/2023 06/10/2024 1 1 Encounter Details Date Type Department Care Team (Late st Contact Info) Description 10/02/2019 Hospital Encounter [facility] [address] [place] [address] Social History Tobacco Use Types Packs/Day Years [...] on file 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 There will be no report generated by a [facility] Radiologist. Narrative RAD_M[facility]MO[facility] - 05/12/2023 1:55 PM VARNISH SUPERVISOR EXAMINATION: Images For Reference Purposes Only us [...]
--- OUTSIDE RECORDS SUMMARY | 2020-10-09 | XMS_ITS | Encounter Summary ---
Author Organization [facility] Healthcare Address [address] [place] [address] Care Team Providers Care Franchise Sales Manager Name Role Phone Tuan Morrison MD Primary Care Provider +1- [phone] Reason for Visit * Diagnostic Imaging (Routine) - Closed Specialty Diagnoses / Procedures Referred By Contac t Referred To Contact Diagnoses Malignant neoplasm of unspecified site of left female breast Procedures Breast Imaging [place] [address] [place] [address] Phone: tel: fax: Mena Mansfield MD Phone: tel: fax: Referral ID Status Reason Start Date Expiration Date Visits Re quested Visits Authorized [id number] Closed 05/12/2023 06/10/2024 1 1 Encounter Details Date Type Department Care Team (Late st Contact Info) Description 10/09/2020 Hospital Encounter [facility] [address] [place] [address] Social History Tobacco Use Types Packs/Day Years [...] on file Legal Sex Female 1:53 AM SPECIAL SERVICES DIRECTOR Gender Identity Not on file Sexual [...] CDT) Impressions [facility] - 05/12/2023 2:05 PM SPECIAL SERVICES DIRECTOR These images are for Reference purposes only and have not been reviewed by [facility] Radiology. There will be no report generated by a [facility] Radiologist. Narrative RAD_MAMMO[facility] - 05/12/2023 2:05 PM SPECIAL SERVICES DIRECTOR EXAMINATION: Images For Reference Purposes Only [...] documented as of this encounter Care Teams Franchise Sales Manager Relationship Specialty Start Date End Date Tuan Morrison MD [address] [place] [address] PCP - General Family Medicine 09/11/20 documented as of this encounter
--- NOTE | ~2025-01-28 | XR_ITS ---
EXAMINATION: XR chest 2V DATE: 01/28/2025 18:34 INDICATION: Shortness of breath. TECHNIQUE: Frontal and lateral views of the chest were obtained. COMPARISON: Chest 2 views 06/20/2024, chest CT 06/20/2024 FINDINGS: There is no pneumonia, pleural effusion, or pneumothorax. The heart size is normal. There are prominent pericardial fat pads. There are surgical clips in left axilla. IMPRESSION: 1. No acute cardiopulmonary disease. Reviewed, dictated and finalized at location K.
--- NOTE | ~2025-01-28 | CT_ITS ---
EXAMINATION: CTA chest PE protocol DATE: 01/28/2025 20:14 INDICATION: Shortness of breath. TECHNIQUE: Computed tomography angiography (CTA) of the chest was performed with 100 mL Omnipaque-350 intravenous contrast timed to evaluate the pulmonary arteries. Coronal maximum intensity projection 3D-reconstructions were created by the technologist. Automated exposure control and iterative reconstruction technique were employed. The dose-length product was 279.67 mGy-cm. COMPARISON: Chest CT 06/20/2024 FINDINGS: There is mild emphysema. The lungs demonstrate mild atelectasis. No pleural effusion. Cardiomegaly is noted. There are coronary artery calcifications. No pericardial effusion. There is no pulmonary embolus. There are changes of cholecystectomy. There are changes of left mastectomy. There is s evere thoracic spondylosis. IMPRESSION: 1. No pulmonary embolus. 2. Mild emphysema. Reviewed, dictated and finalized at location K.
[2025-01-28 18:07] VITALS: BP 163/92; PULSE 80; RESP 16; TEMP 36.6; O2SAT 95
--- NOTE | 2025-01-28 18:11 | ECG_ITS ---
Test Date: 2025-01-28 18:13:08 Measurements Intervals Grant Rate: 79 P: -7 MA: 264 QRS: -51 QRSD: 78 T: 2 QT: 359 QTc: 413 Interpretive Statements SINUS RHYTHM WITH FIRST DEGREE AV BLOCK LEFT AXIS DEVIATION [QRS AXIS < -30] POSSIBLE RIGHT VENTRICULAR CONDUCTION DELAY [RSR (QR) IN V1/V2] MINIMAL VOLTAGE CRITERIA FOR LVH, CONSIDER NORMAL VARIANT [MEETS CRITERIA IN ONE OF: R(aVL), S(V1), R(V5), R(V5/V6)+S(V1)] ABNORMAL ECG Compared to ECG 06/19/2024 23:53:31 Left-axis deviation now present Incomplete right bundle-branch block no longer present Left anterior fascicular block no longer present Myocardial infarct finding no longer present Electronically Signed On 01-29-2025 08:07:38 CDT by Evgeny Cook M.D.
[2025-01-28 18:14] VITALS: PULSE 80; O2SAT 95
[2025-01-28 18:33] LABS: Hematocrit 41.2 % (37.0-47.0); Hemoglobin 13.3 g/dL (12.0-15.0); Immature Granulocyte Percent A 0.2 % (0-0.5); Lymphocytes Absolute Auto 1.48 K/mm3 (0.9-3.2); Mean Corpuscular HGB Conc 32.3 g/dl (32-36); Mean Corpuscular Hemoglobin 27.7 pg (26-34); Mean Corpuscular Volume 85.7 fl (80-100); Nucleated Red Blood Cells Absolute Auto 0.000 K/mm3 (0.0-0.012); Nucleated Red Blood Cells Perc 0.0 % (0.0-0.2); Platelet Count Result 201 k/mm3 (150-375); Red Blood Count 4.81 M/mm3 (4.2-5.4); White Blood Count 6.5 K/mm3 (4.5-10.0)
[2025-01-28 18:43] LABS: Alanine Aminotransferase 17 U/L (6-35); Albumin Level 4.2 g/dL (3.5-5.1); Alkaline Phosphatase 69 U/L (38-126); Anion Gap 9 mmol/L (4-12); Aspartate Amino Transferase 34 U/L (14-36); Bilirubin,Total 0.3 mg/dL (0.2-1.3); Blood Urea Nitrogen 28 mg/dL (7-17); Calcium 9.1 mg/dL (8.4-10.2); Carbon Dioxide 23 mmol/L (22-30); Chloride 104 mmol/L (98-107); Estimated CRCL calculation 43 ml/min; Estimated Glomerular Filt Rate 55; Glucose 104 mg/dL (65-110); Potassium 4.2 mmol/L (3.4-5.0); Sodium 136 mmol/L (137-145); Total Protein 7.1 g/dL (6.3-8.2)
--- OUTSIDE RECORDS SUMMARY | 2025-01-28 19:14 | XMS_ITS | Encounter Summary ---
Author Organization [employer] Address [address] Kramer: Epic Prelude ADT [place]IX [address] Care Team Providers Care Manager Corporate Responsibility Name Role Phone Tuan Morrison MD Primary Care Provider +1- [phone] Encounter Details Date Type Department Care Team (Late st Contact Info) Description 12/19/1989 Outpatient Historical Kofi Gallardo MD [address] [facility] [address] [place] [address] Social History Tobacco Use Types Packs/Day Years Used Date Smoking Tobacco: Never Assessed Comments Unknown Sex and Gender Information Value Date Recorded Sex Assigned at Not on file Legal Sex Female 2:58 AM LOCAL GOVERNMENT LEGISLATOR Gender Identity Not on file Sexual Orientation Not on file documented as of this encounter Plan of Treatment Not on file documented as of this encounter Visit Diagnoses Not on filedocumented in this encounter Additional Health Concerns Infection Onset Date Last Indicated Resolved Time R/O COVID-19 02/04/2023 02/04/2023 02/04/2023 2:27 AM CDT documented as of this encounter Care Teams Manager Corporate Responsibility Relationship Specialty Start Date End Date Tuan Morrison MD [address] [place] [address] PCP - General 03/25/15 documented as of this encounter
--- OUTSIDE RECORDS SUMMARY | 2025-01-28 19:14 | XMS_ITS | Clinical Summary ---
Author Organization [facility] [place] Address [address] [place] [address] Phone Care Team Providers Care Brim Welt Sewing Machine Operator Name Role Phone Tuan Morrison MD Primary Care Provider +1- [phone] Allergies Active Allergy Reactions Criticality Noted Date Comments Erythromycin Hives High 02/11/2010 Levofloxacin Muscle Pain Low 01/05/2012 Omeprazole Palpitations High 01/23/2016 Penicillins Anaphylaxis High 02/11/2010 Sinutab Rash Low 02/11/2010 Sulfa (Sulfonamide Antibiotics) Diarrhea,Nausea and Vomiting Low 02/28/2023 Medications levothyroxine (SYNTHROID) 75 mcg Oral tablet Take 75 mcg by mouth daily. 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(-) Surgeon: Amaris Surgery: Medical Oncologist: [...] type: IDC, >1 cm ER: (-) neg DE: (-) neg Her2 nina: (not) amplified Grade: [...] on file Legal Sex Female 2:58 AM DRY FOLDER CLOTH Gender Identity Not on file Sexual Orientation Not on file Occupation Industry Job Start Date Job End Date Not on file Not on file Not on file Not on file Not on file Not on file Not on file Not on file Last Filed Vital Signs Vital Sign Reading Time Taken Comments Blood Pressure 149/79 06/07/2023 11:58 AM DRY FOLDER CLOTH Pulse 64 06/07/2023 11:58 AM DRY FOLDER CLOTH Temperature 36.3 C (97.3 F) 05/11/2023 12:23 PM DRY FOLDER CLOTH Respiratory Rate 18 05/11/2023 12:23 PM DRY FOLDER CLOTH Oxygen Saturation 94% 05/19/2023 9:42 AM DRY FOLDER CLOTH Inhaled Oxygen Concentration - - Weight 85.3 kg (188 lb 0.8 oz) 06/07/2023 11:58 AM DRY FOLDER CLOTH Height 170.2 cm (5' 7) 06/07/2023 11:58 AM DRY FOLDER CLOTH Body Mass Index 29.45 06/07/2023 11:58 AM DRY FOLDER CLOTH Plan of Treatment Health Maintenance Due Date [...] 12/25/2021, Additional history exists INFLUENZA VACCINE (#1) 2024 08/03/2024, 2021 COVID-19 Vaccine (4 - 2024-2 6 season) 2025 12/25/2021, 08/02/2020, 07/12/2020 OSTEOPOROSIS SCREENING 06/17/2028 06/17/2023, 2014 COLORECTAL SCREENING Discontinued 11/05/2020, 11/05/2020, 07/05/2017 Colorectal Cancer Screening Discontinued FIT-DNA Q 3 years Discontinued FIT/FOBT Q 1 year Discontinued Flex Sig/CT Colonography Q 5 years Discontinued Medical Devices Implanted Type Area Wood Boatbuilder Apprentice Device Identifier Shelf Expiration Date Model / Serial / Lot Lawn And Garden Technician Clip Surgiclip Ii Myles 9.75in [id number] - [id number] Implanted:Qty: 1 on 02/28/2023 by Indiana Glez MD at [facility] Left: Axilla [employer] - COVIDIEN 09/13/2027 [id number] / / [id number] Cataract Extraction With Iol-2009; Right Eye Right Eye Cataract Excision With Iol-01/2022 Insurance MEDICARE PART A AND B BCBS SUPP RX [facility] Medicare Part D RX [employer] Express RX [employer] PLANS (INTERNAL) [facility] Plans Advance Directives For more information, please contact: [phone] * Full Code (Latest Code Status on [...] 7:44 AM 02/27/2010 7:44 AM Care Teams Brim Welt Sewing Machine Operator Relationship Specialty Start Date End Date Tuan Morrison MD [address] [place] [address] PCP - General 03/25/15
--- OUTSIDE RECORDS SUMMARY | 2025-01-28 19:14 | XMS_ITS | Encounter Summary ---
Author Organization [facility] Address [address] Kramer: Epic Prelude ADT [place] [address] Care Team Providers Care Salvage Winder Name Role Phone Tuan Morrison MD Primary Care Provider +1- [phone] Encounter Details Date Type Department Care Team (Late st Contact Info) Description 02/01/1992 Outpatient Historical Kofi Gallardo MD [address] [facility] [address] [place] [address] Social History Tobacco Use Types Packs/Day Years Used Date Smoking Tobacco: Never Assessed Comments Unknown Sex and Gender Information Value Date Recorded Sex Assigned at Not on file Legal Sex Female 2:58 AM ADVERTISING REPRESENTATIVE Gender Identity Not on file Sexual Orientation Not on file documented as of this encounter Plan of Treatment Not on file documented as of this encounter Visit Diagnoses Not on filedocumented in this encounter Additional Health Concerns Infection Onset Date Last Indicated Resolved Time R/O COVID-19 02/04/2023 02/04/2023 02/04/2023 2:27 AM CDT documented as of this encounter Care Teams Salvage Winder Relationship Specialty Start Date End Date Tuan Morrison MD [address] [place] [address] PCP - General 03/25/15 documented as of this encounter
--- OUTSIDE RECORDS SUMMARY | 2025-01-28 19:14 | XMS_ITS | Encounter Summary ---
Author Organization [facility] Address [address] Kramer: Epic Prelude ADT [place] [address] Care Team Providers Care Web Site Administrator Name Role Phone Tuan Morrison MD Primary Care Provider +1- [phone] Encounter Details Date Type Department Care Team (Late st Contact Info) Description 04/18/1990 Outpatient Historical Kofi Gallardo MD [address] [facility] [address] [place] [address] Social History Tobacco Use Types Packs/Day Years Used Date Smoking Tobacco: Never Assessed Comments Unknown Sex and Gender Information Value Date Recorded Sex Assigned at Not on file Legal Sex Female 2:58 AM ELECTRICAL TECH Gender Identity Not on file Sexual Orientation Not on file documented as of this encounter Plan of Treatment Not on file documented as of this encounter Visit Diagnoses Not on filedocumented in this encounter Additional Health Concerns Infection Onset Date Last Indicated Resolved Time R/O COVID-19 02/04/2023 02/04/2023 02/04/2023 2:27 AM CDT documented as of this encounter Care Teams Web Site Administrator Relationship Specialty Start Date End Date Tuan Morrison MD [address] [place] [address] PCP - General 03/25/15 documented as of this encounter
--- OUTSIDE RECORDS SUMMARY | 2025-01-28 19:14 | XMS_ITS | Encounter Summary ---
Author Organization [facility] Address [address] Kramer: Epic Prelude ADT [place] [address] Care Team Providers Care Flight Line Mechanic Name Role Phone Tuan Morrison MD Primary Care Provider +1- [phone] Encounter Details Date Type Department Care Team (Late st Contact Info) Description 05/18/1990 Outpatient Historical Kofi Gallardo MD [address] [facility] [address] [place] [address] Social History Tobacco Use Types Packs/Day Years Used Date Smoking Tobacco: Never Assessed Comments Unknown Sex and Gender Information Value Date Recorded Sex Assigned at Not on file Legal Sex Female 2:58 AM GUEST SERVICES AGENT Gender Identity Not on file Sexual Orientation Not on file documented as of this encounter Plan of Treatment Not on file documented as of this encounter Visit Diagnoses Not on filedocumented in this encounter Additional Health Concerns Infection Onset Date Last Indicated Resolved Time R/O COVID-19 02/04/2023 02/04/2023 02/04/2023 2:27 AM CDT documented as of this encounter Care Teams Flight Line Mechanic Relationship Specialty Start Date End Date Tuan Morrison MD [address] [place] [address] PCP - General 03/25/15 documented as of this encounter
--- OUTSIDE RECORDS SUMMARY | 2025-01-28 19:14 | XMS_ITS | Encounter Summary ---
Author Organization [employer] Address [address] [place] [address] Care Team Providers Care Telephone Coin Box Collector Name Role Phone Tuan Morrison MD Primary Care Provider +1- [phone] Encounter Details Date Type Department Care Team (Late st Contact Info) Description 08/21/2003 Outpatient Historical [facility] [address] [place] [id number] Ingrid Pierre MD Social History Tobacco Use Types Packs/Day Years Used Date Smoking Tobacco: Never Assessed Comments Unknown Sex and Gender Information Value Date Recorded Sex Assigned at Not on file Legal Sex Female 2:58 AM CLERK CASHIER Gender Identity Not on file Sexual Orientation Not on file documented as of this encounter Plan of Treatment Not on file documented as of this encounter Visit Diagnoses Not on filedocumented in this encounter Additional Health Concerns Infection Onset Date Last Indicated Resolved Time R/O COVID-19 02/04/2023 02/04/2023 02/04/2023 2:27 AM CDT documented as of this encounter Care Teams Telephone Coin Box Collector Relationship Specialty Start Date End Date Tuan Morrison MD [address] [place] [address] PCP - General 03/25/15 documented as of this encounter
--- OUTSIDE RECORDS SUMMARY | 2025-01-28 19:14 | XMS_ITS | Encounter Summary ---
Author Organization [employer] Address 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
--- OUTSIDE RECORDS SUMMARY | 2025-01-28 19:14 | XMS_ITS | Encounter Summary ---
Author Organization [facility] Address [address] [place] [address] Phone Care Team Providers Care Automatic Buffer Name Role Phone Tuan Morrison MD Primary Care Provider +1- [phone] Encounter Details Date Type Department Care Team (Late st Contact Info) Description 01/04/2025 Results Follow-Up [facility] Medicine Surgery [address] [facility] Floor [address] [place] [address] Kelley Snyder NP [address] [facility] [phone] [place] [address] Screening Mammogram Right W Santiago Unilateral Only [...] on file Legal Sex Female 1:53 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
--- OUTSIDE RECORDS SUMMARY | 2025-01-28 19:14 | XMS_ITS | Clinical Summary ---
Author Organization [facility] [address] Address [address] [place] [address] Care Team Providers Care Film Processing Supervisor Name Role Phone Tuan Morrison MD Primary Care Provider +1- [phone] Allergies Active Allergy Reactions Criticality Noted Date [...] 1 tablet (75 mcg total) by mouth software development engineer before breakfast Active vitamin D3-vitamin K2 25 mcg (1,000 unit)-90 mcg tablet,disinte grating Take by mouth Active magnesium citrate 100 mg tablet Take 100 mg by mouth daily after lunch Active vit D3-vit Q-bygkxvgdf-nh ps [phone] ywep-tew-ch-mg tablet Take by mouth Active cholecalcifero l [...] from 02/28/2023:Stage IA(pT2, pN0(sn), cM0, G2, ER+, OH+, HER2-) - Unsigned Primary osteoarthritis of left knee 10/27/2022 Encounters Date Type Department Care Team Description 01/04/2025 Results Follow-Up [facility] Medicine Surgery [address] [place] [address] [address] [place] [address] Kelley Snyder NP Screening Mammogram Right W Santiago Unilateral Only 01/02/2025 11:51 AM CDT - 01/02/2025 11:59 PM CDT Hospital Encounter [facility] - Breast Imaging [address] [place] [address] [address] [place] [address] Malignant neoplasm of 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, estrogen receptor positive (HCC); Malignant neoplasm of left female breast, unspecified estrogen receptor status, unspecified site of breast (HCC); Encounter for screening mammogram for malignant neoplasm of breast Discharge Disposition: Discharge to home or self care 01/02/2025 11:45 AM CDT Office Visit [facility] Medicine Surgery [address] [place] [address] [address] [place] [address] Kelley Snyder NP Malignant neoplasm of lower-outer [...] on file 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 Gender Identity Not on file Sexual Orientation [...] 01/19/2016 Osteoporosis Screening-Bone Density Scan 03/18/2017 03/18/2015 Fall Risk Assessment 08/07/2024 08/08/2023 Covid-19 Vaccine (6 - 2024-2 6 season) 2025 04/01/2022, 12/25/2021, 05/21/2021, Additional history exists Influenza Vaccine (#1) 2025 04/29/2022, 2021 Procedures [...] Result from Last 3 Months Insurance MEDICARE [facility] MEDICARE [facility] MEDICARE SUPPLEMENT MEDICARE [facility] MEDICARE SUPPLEMENT Advance Directives For more information, please contact: [phone] Documents on File Type Date Recorded Patient Accounts Payable Accountant Expl anation ADVANCE DIRECTIVE 08/08/2023 2:02 PM Power of Welding Production Supervisor-Medical Care Teams Film Processing Supervisor Relationship Specialty Start Date End Date Tuan Morrison MD [address] [place] [address] PCP - General Family Medicine 09/11/20
--- OUTSIDE RECORDS SUMMARY | 2025-01-28 19:14 | XMS_ITS | Encounter Summary ---
Author Organization [facility] Address [address] Kramer: Epic Prelude ADT [place] [address] Care Team Providers Care Bread Wrapper Operator Name Role Phone Tuan Morrison MD Primary Care Provider +1- [phone] Encounter Details Date Type Department Care Team (Late st Contact Info) Description 12/28/1991 Outpatient Historical Kofi Gallardo MD [address] 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
--- OUTSIDE RECORDS SUMMARY | 2025-01-28 19:14 | XMS_ITS | Encounter Summary ---
Author Organization [facility] Address [address] [place] [address] Care Team Providers Care Commissary Assistant Name Role Phone Tuan Morrison MD Primary Care Provider +1- [phone] Damon Prescott MD Unavailable [phone] Encounter Details Date Type Department Care Team (Late st Contact Info) Description 11/02/2023 Lab Requisition [facility] - DermPath Lab [address] [facility] [place] [address] Guru Rabago MD [address] [address] Social History Tobacco Use Types Packs/Day Years Used Date Smoking Tobacco: Never Assessed Comments Unknown Sex and Gender Information Value Date Recorded Sex Assigned at Female 05/01/2024 6:42 PM ABSORPTION PLANT OPERATOR HELPER Legal Sex Female 6:16 AM ABSORPTION PLANT OPERATOR HELPER Gender Identity Female 05/01/2024 6:42 PM ABSORPTION PLANT OPERATOR HELPER Sexual Orientation Bisexual 05/01/2024 6: 42 PM ABSORPTION PLANT OPERATOR HELPER documented as of this encounter Plan of Treatment Not on file documented as of this encounter Procedures Procedure Name Priority Date/Time Associated Diagnosis Comments DERMATOPATHOLOGY Routine 11/01/2023 3:33 AM CDT documented in this encounter Results * DERMATOPATHOLOGY (11/01/2023 3:33 AM CDT) Case Report Dermatopathology Report Case: [id number] Authorizing Provider: Guru Rabago MD Collected: 11/01/2023 03:33 AM Ordering Location: [facility] - Received: 11/02/2023 12:35 PM [...] characteristic determined by the Dermatopathology Laboratory at [facility], directed by Dr. Elaina Curtis. These tests need not be, and therefore are not, approved by the [place] Food and Drug Administration. The tests are used for clinical purposes. Billing Codes Specimen Charges Stain Charges 47478 1 10:55 AM CDT DERMATOPATHOLOGY LABORATORY Embedded Images 10:55 AM CDT DERMATOPATHOLOGY LABORATORY Pathology/Cytolo gy TISSUE SPECIMEN FROM SKIN / Unknown 11/01/2023 3:33 AM CDT 11/02/2023 12:35 PM CDT us Guru Rabago MD LAB - PATHOLOGY/CYTOLOGY ORDERAB LES Final Result DERMATOPATHOLOGY LABORATORY [facility] - Department of Dermatology [facility] Specialized Medicine [address] [facility] 3rd [place] [address], [facility] [phone] documented in this encounter Visit Diagnoses Not on filedocumented in this encounter Care Teams Commissary Assistant Relationship Specialty Start Date End Date Tuan Morrison MD [address] [facility], [id number] PCP - General Family Medicine 04/17/24 Damon Prescott MD [address] [place] [address] Cardiovascular Disease 07/23/24 documented as of this encounter
--- OUTSIDE RECORDS SUMMARY | 2025-01-28 19:14 | XMS_ITS | Encounter Summary ---
Author Organization [facility] Address [address] Kramer: Epic Prelude ADT [place] [address] Care Team Providers Care Home Support Worker Name Role Phone Tuan Morrison MD Primary Care Provider +1- [phone] Encounter Details Date Type Department Care Team (Late st Contact Info) Description 02/20/1990 Outpatient Historical Kofi Gallardo MD [address] 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
--- OUTSIDE RECORDS SUMMARY | 2025-01-28 19:14 | XMS_ITS | Encounter Summary ---
Author Organization [facility] Address [address] Kramer: Epic Prelude ADT [place] [address] Care Team Providers Care Audiovisual Librarian Name Role Phone Tuan Morrison MD Primary Care Provider +1- [phone] Encounter Details Date Type Department Care Team (Late st Contact Info) Description 02/06/1991 Outpatient Historical Kofi Gallardo MD [address] 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
--- OUTSIDE RECORDS SUMMARY | 2025-01-28 19:14 | XMS_ITS | Clinical Summary ---
Author Organization [facility] Address [address] [place] [address] Care Team Providers Care Advertising Sales Executive Name Role Phone Tuan Morrison MD Primary Care Provider [phone] Damon Prescott MD Unavailable [phone] Source Comments [facility],non-owned Affiliates and Associated Physician Practices is amultiple site organization consisting of ambulatory clinics and hospital sitesin [place], [place], [place] and [place]. This disclosure is being madepursuant to the Care Everywhere program and may not contain all information available regarding this patient. Last updated 18.[facility] Allergies Active Allergy Reactions Criticality Noted Date [...] Description 12/06/2024 4:00 PM CDT Office Visit [facility] [address], [address] [place] [address] Edinson Denise MD History of total left knee replacement (Primary Dx) 11/14/2024 Telephone [facility] [id number] [place] [address], [address] [place] [address] Edinson Denise MD Refill Request from Last 3 Months Immunizations Immunization Administration [...] Recorded Patient Health Questionnaire-2 Score 2 09/13/2024 [facility] - Occupational Stress [...] the money to buy more. Never true 08/03/19 Within the past 12 months, t he [...] any time in the past 12 m [facility], were you homeless or living in a half-way (including now)? No 08/02/2024 Comments No Sex and Gender Information Value Date Recorded Sex Assigned at Female 05/01/2024 6:42 PM KICKING MACHINE OPERATOR Legal Sex Female 6:16 AM KICKING MACHINE OPERATOR Gender Identity Female 05/01/2024 6:42 PM KICKING MACHINE OPERATOR Sexual Orientation Bisexual 05/01/2024 6: 42 PM KICKING MACHINE OPERATOR Last Filed Vital Signs Vital Sign Reading [...] - 1-dose 75+ series) 10/29/2014 COVID-19 VACCINE (2023-2 5 season) 2025 INFLUENZA VACCINE (#1) 2025 , 04/29/2022 DEPRESSION [...] this topic Medical Devices Implanted Type Area Leather Cartridge Belt Maker Device Identifier Shelf Expiration Date Model / Serial / Lot Cmnt Bone Plc R 40gm Grn Implanted:Qty: 1 on 08/02/2024 by Edinson Denise MD at [facility] Left: Knee [employer] 09/12/2026 [id number] / / [id number] Cmnt Bone Plc R 40gm Grn Implanted:Qty: 1 on 08/02/2024 by Edinson Denise MD at [facility] Left: Knee [employer] 07/13/2026 [id number] / / [id number] Cmpnt Ptlr Std 28mm 3 Pg Kn Ser A Implanted:Qty: 1 on 08/02/2024 by Edinson Denise MD at [facility] Left: Knee [employer] 07/23/2029 [id number] / / [id number] Tray Tib 71mm Kn Cocr I Beam Implanted:Qty: 1 on 08/02/2024 by Edinson Denise MD at [facility] Left: Knee [employer] 04/30/2034 [id number] / / [id number] Cmpnt Fem Kn Lt Cr Cmnt Prm Vngrd Intlk Implanted:Qty: 1 on 08/02/2024 by Edinson Denise MD at [facility] Left: Knee [employer] 05/26/2034 [id number] / / [id number] Brng 88i78ga Vngrd Vivacit-E Kn Ant Stab Implanted:Qty: 1 on 08/02/2024 by Edinson Denise MD at [facility] Left: Knee [employer] 06/19/2029 [id number] / / [id number] Insurance MEDICARE FORMERLY [facility] Advance Directives Documents on File Type Date Recorded Patient Mannequin Sander And Finisher Expl anation Adv Directive/Living Will/POA 08/02/2024 ADV * Full Code (Latest Code Status on File) Date Activated Date Inactivated Comments 08/02/2024 3:32 PM 08/03/2024 3:55 PM Care Teams Advertising Sales Executive Relationship Specialty Start Date End Date Tuan Morrison MD [address], [address] PCP - General Family Medicine 04/17/24 Damon Prescott MD [address] [place] [address] Dr [address] [place] [address] Cardiovascular Disease 07/23/24
--- OUTSIDE RECORDS SUMMARY | 2025-01-28 19:14 | XMS_ITS | Encounter Summary ---
Author Organization [facility] Address [address] Kramer: Epic Prelude ADT [place] [address] Care Team Providers Care Residential Property Consultant Name Role Phone Tuan Morrison MD Primary Care Provider [phone] Encounter Details Date Type Department Care Team (Late st Contact Info) Description 01/06/1993 Outpatient Historical Kofi Gallardo MD [address] [facility] [address] [place] [address] Social History Tobacco Use Types Packs/Day Years Used Date Smoking Tobacco: Never Assessed Comments Unknown Sex and Gender Information Value Date Recorded Sex Assigned at Not on file Legal Sex Female 2:58 AM CUSTOMS CONSULTANT Gender Identity Not on file Sexual Orientation Not on file documented as of this encounter Plan of Treatment Not on file documented as of this encounter Visit Diagnoses Not on filedocumented in this encounter Additional Health Concerns Infection Onset Date Last Indicated Resolved Time R/O COVID-19 02/04/2023 02/04/2023 02/04/2023 2:27 AM CDT documented as of this encounter Care Teams Residential Property Consultant Relationship Specialty Start Date End Date Tuan Morrison MD [address] [place] [address] PCP - General 03/25/15 documented as of this encounter
--- NOTE | 2025-01-28 20:11 | ED_ITS ---
HPI - SOB/Dyspnea General Chief Complaint: Shortness of Breath/Dyspnea Stated Complaint: dvt, sob Time Seen by Provider: 01/28/25 18:14 History of Present Illness HPI Narrative: Patient is an 84-year-old female who presents ER with reports of mild shortness of breath. His notices worsening over last week. Was recently diagnosed with DVT. No chest pain. No pain with deep breath. No hemoptysis. She has been compliant with anticoagulation. No fevers or chills. Related Data Allergies Allergy/AdvReac Type Severity Reaction Status Date / Time Penicillins Allergy Severe Anaphylaxis Verified 01/28/25 18:11 erythromycin base Allergy Hives Verified 01/28/25 18:11 levofloxacin (From Levaquin) Allergy Hives Verified 01/28/25 18:11 Rqgtyza-VGJ-EyR Reductase Allergy Unknown Verified 01/28/25 18:11 Inhibitor Review of Systems 2 Review of Systems: All systems reviewed & are unremarkable except as noted in HPI and below Constitutional: Constitutional: Reports no additional constitutional complaints ENT: Reports system reviewed and no additional complaints, except as documented Cardiovascular: Cardiovascular: Reports no additional cardiovascular complaints Respiratory: Respiratory: Reports no additional respiratory complaints Gastrointestinal: Gastrointestinal: Reports no additional gastrointestinal complaints [facility] Past Medical History Medical History (Updated 01/28/25 @ 21:07 by Daniel Fofana MD) CAD (coronary artery disease) Breast cancer 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 Head injury 2009 UTI (urinary tract infection) Surgical History Surgical History (Updated 06/22/24 @ 09:27 by Mckenna Green MD) H/O mastectomy left H/O lumpectomy Left History of cardiac catheterization 2016; mild blockages 72% and 19%), no stents required Social History Social History Social History: 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 HEAD: Normocephalic, atraumatic. ENT: Mucous membranes moist. CHEST: Clear to auscultation. No respiratory distress. HEART: Regular rate and rhythm. Normal peripheral pulses. ABDOMEN: Soft, nontender, nondistended. EXTREMITIES: Normal range of motion. No edema. SKIN: Warm, dry, no rash. NEURO: Alert and oriented x3. PSYCH: Normal mood and affect. Course Course Emergency Course: Labs and imaging unremarkable. No hypoxia. Patient appropriate for discharge home and follow-up with PCP. Vital Signs Vital signs: Vital Signs Temperature 97.8 F 01/28/25 18:07 Pulse Rate 80 01/28/25 18:07 Respiratory Rate 16 01/28/25 18:07 Blood Pressure 163/92 H 01/28/25 18:07 Pulse Oximetry 95 01/28/25 18:07 Oxygen Delivery Room Air 01/28/25 18:07 Temperature 97.8 F 01/28/25 18:07 Pulse Rate 80 01/28/25 18:14 Respiratory Rate 16 01/28/25 18:07 Blood Pressure 163/92 H 01/28/25 18:07 Pulse Oximetry 95 01/28/25 18:14 Oxygen Delivery Room Air 01/28/25 18:14 MDM - SOB/Dyspnea Lab Data 01/28/25 18:25 01/28/25 18:25 Labs: Lab Results 01/28/25 Range/Units 18:25 WBC 6.5 (4.5-10.0) K/mm3 RBC 4.81 (4.2-5.4) M/mm3 Hgb 13.3 (12.0-15.0) g/dL Hct 41.2 (37.0-47.0) % MCV 85.7 (80-100) fl MCH 27.7 (26-34) pg MCHC 32.3 (32-36) g/dl RDW 16.2 H (11.5-14.5) % Plt Count 201 (150-375) k/mm3 MPV 9.9 (7.4-10.4) fl Immature Gran % (Auto) 0.2 (0-0.5) % Neut % (Auto) 66.5 (45.5-73.1) % Lymph % (Auto) 22.8 (18.3-44.2) % Whitley % (Auto) 8.5 (2.6-8.5) % Eos % (Auto) 1.2 (0-4.4) % Baso % (Auto) 0.8 (0.2-1.2) % Lymph # (Auto) 1.48 (0.9-3.2) K/mm3 Whitley # (Auto) 0.6 (0.1-0.6) K/mm3 Eos # (Auto) 0.1 (0-0.3) K/mm3 Baso # (Auto) 0.1 (0.0-0.1) K/mm3 Abs Immat Gran (auto) 0.01 (0.00-0.031) K/mm3 Absolute Neuts (auto) 4.3 (1.3-6.7) K/mm3 Absolute Nucleated RBC 0.000 (0.0-0.012) K/mm3 Nucleated RBC % 0.0 (0.0-0.2) % Sodium 136 L (137-145) mmol/L Potassium 4.2 (3.4-5.0) mmol/L Chloride 104 (98-107) mmol/L Carbon Dioxide 23 (22-30) mmol/L Anion Gap 9 (4-12) mmol/L BUN 28 H (7-17) mg/dL Creatinine 0.96 (0.7-1.0) mg/dL Estim Creat Clear Calc 43 ml/min Estimated GFR 55 L (59 - ) Glucose 104 (65-110) mg/dL Calcium 9.1 (8.4-10.2) mg/dL Total Bilirubin 0.3 (0.2-1.3) mg/dL AST 34 (14-36) U/L ALT 17 (6-35) U/L Alkaline Phosphatase 69 (38-126) U/L Total Protein 7.1 (6.3-8.2) g/dL Albumin 4.2 (3.5-5.1) g/dL ECG Data EKG #1: ECG completion date: 01/28/25 ECG completion time: 18:13 EKG Interpretation: normal rate (79), sinus rhythm, RBBB (Incomplete) and left axis Discharge Plan Discharge Clinical Impression: Dyspnea Patient Disposition: Home Condition: Stable Instructions: Dyspnea (ED) Additional Instructions: Please return to the emergency department if you develop severe and persistent chest pain, difficulty breathing, dizziness, leg swelling or if you are coughing up blood as these can be signs of a medical emergency. Please call your doctor for a follow up appointment to determine the need for further testing. Patient Language: Romanian Prescriptions: No Action Xarelto DVT-PE Treat 30d Start 15 mg (42)- 20 mg (9) tablets,dose pack See Rx Instructions .ROUTE .COMPLEX Qty: 51 0RF Rx Instructions: take one-15 mg tablet twice daily for 21 days, then one-20 mg tablet once daily; must take with meal/food sulfamethoxazole-trimethoprim [Bactrim DS] 800-160 mg tablet 1 tablet PO Q12H 5 Days Qty: 9 0RF Follow-up/Referrals: Tamiko,MD Tuan [Primary Care Provider, Unknown] - 1 Week
[2025-01-28 21:35] LABS: Troponin I < 0.012 ng/mL (0.000-0.034)
== END 2025-01-28 21:49 | disposition home or self-care (01) ==
PROVIDERS: Emergency Provider Emergency Medicine; PCP Family Medicine
DX: R06.00 Dyspnea, unspecified (principal); I25.10 Atherosclerotic heart disease of native coronary artery without angina pectoris; Z85.3 Personal history of malignant neoplasm of breast; Z79.01 Long term (current) use of anticoagulants
CPT/HCPCS: 36415; 71046; 71275; 80053; 84484; 85025; 93005; 99284; Q9967